=== PATIENT | female | born 1970 | race Caucasian/White ===

== ENCOUNTER 2017-04-13 16:25 | Inpatient (IN) ==
--- NOTE | 2017-04-13 17:56 | Emergency Department Note ---
Disposition Clinical Impression: Osteomyelitis of toe of right foot Disposition: Admitted As Inpatient Condition: Good Referrals: NO,PCP [Primary Care Provider] - Forms: ED Satisfaction Letter Time of Disposition: 21:20 Extremity Problem HPI - General Chief complaint: ED Extremity Problem,Nontraumatic Stated complaint: Necrotic toe Time Seen by Provider: 04/13/17 17:14 Source: patient Mode of arrival: ambulatory Limitations: no limitations Nursing Notes Reviewed: Yes Vital Signs Reviewed: Yes - History of Present Illness HPI Narrative: 46-year-old female insulin-dependent diabetes mellitus uncontrolled presents with right little toe pain. Reports yesterday noticing some bleeding from the right little toe. His morning she took a look and it appears black and blue. She denies any known injury to the toe. She denies any significant pain at this time. Describes the pain as a dull cramping feeling. Her right leg is more swollen than the left. She denies any recent illness, cough, chest pain or shortness of breath. Denies any anticoagulants use. Denies any history of blood clots. Denies active cancer. Denies any surgeries on the right leg. Pain Scale: 7 - Related Data Home Medications Medication Instructions Recorded Confirmed BuPROPion SR (12 HR) [Wellbutrin 150 mg PO BID 10/03/15 04/13/17 SR] Metformin [Glucophage] 1,000 mg PO BID 10/03/15 04/13/17 Ergocalciferol (VITAMIN D2) 50,000 unit PO SA 04/13/17 04/13/17 [Vitamin D2] Insulin Degludec [Tresiba 22 unit SQ DAILY 04/13/17 04/13/17 Flextouch U-100] Liraglutide [Victoza 2-Sameer] 1.8 mg SQ DAILY 04/13/17 04/13/17 Spironolactone [Aldactone] 25 mg PO DAILY 04/13/17 04/13/17 hydrOXYzine HCl [Hydroxyzine HCl] 25 - 50 mg PO TID PRN 04/13/17 04/13/17 Allergies Allergy/AdvReac Type Severity Reaction Status Date / Time No Known Allergies Allergy Unverified 06/05/15 08:07 Past Medical History - Past Medical History Medical history: Reports: diabetes, other Surgical history: Reports: other Psychiatric history: Reports: no psych history - Social History Smoking Status: Current every day smoker Alcohol use: Reports: none Drug use: Reports: none Physical Exam - General Limitations: no limitations General appearance: alert, in no apparent distress, obese - Head Head exam: atraumatic, normocephalic, normal inspection - Eye Eye exam: Present: normal appearance, PERRL, EOMI - ENT ENT exam: normal exam, normal oropharynx, mucous membranes moist - Neck Neck exam: Present: normal inspection, full ROM, trachea midline - Chest Chest inspection: Present: normal inspection, symmetric chest wall rise - Respiratory Respiratory exam: Present: normal lung sounds bilaterally. Absent: respiratory distress, wheezes - Cardiovascular Cardiovascular exam: Present: regular rate, normal rhythm, normal heart sounds - Expanded Cardiovascular Exam Peripheral pulses: 1+: posterior tibialis (R), dorsalis pedis (R), 2+: posterior tibialis (L), dorsalis pedis (L) - Abdominal Exam Abdominal exam: Present: soft, Non-Tender, normal bowel sounds. Absent: tenderness, distention, guarding, rebound, rigidity - Extremities Exam Extremities exam: Present: normal capillary refill, pedal edema (Asymmetrical swelling right greater than the left, signs of chronic venous stasis bilaterally ), calf tenderness - Expanded Lower Extremity Exam Foot/toe exam: Present: tenderness, swelling, abrasion, laceration, ecchymosis ( Right little toe), other (Ulceration to the plantar aspect of the lateral right foot) 1 - Cyanosis and bruising with some bleeding, nail is intact 1 - Skin ulceration to the right plantar aspect of the little toe, tracts to the medially into the midfoot, no pus drainage Neurovascular/Tendon exam: Present: pulse deficit, sensory deficit (Diminished sensation to bilateral lower extremities consistent with neuropathy) - Neurological Exam Neurological exam: Present: alert, oriented X3 - Psychiatric Psychiatric exam: Present: normal affect, normal mood - Skin Skin exam: Present: cyanosis, other (Necrosis) - Expanded Skin Exam Type of lesion: Present: abrasion. Absent: foreign body Distribution: RLE Course Course Narrative: 46-year-old female history of uncontrolled insulin-dependent diabetes presents with possible right toe infection. Right little toe is cyanotic impossibly necrotic. There is some losing of blood around the area. There is also an ulcer on the plantar aspect of the foot. There is significant swelling to the right leg concerning for possible blood clot. Pulses are equal bilaterally. Patient denies any history of blood clots. She has a Wells score +2. Will get a venous Doppler of the right lower extremity. X-ray and some basic labs to evaluate toe for possible infection. Patient is in agreement with this plan. Disposition is pending. - Reevaluation(s) Reevaluation #1: Leukocytosis 20. ESR's elevated over 130. Elevated CRP. Concern for possible osteomyelitis. Patient meets SIRS criteria will order lactate, blood cultures and initiate antibiotics. One to cover for MRSA and started on Vanc and Gentamicin. Pharmacy called concern for possible kidney injury and wishes to switch to Zosyn. Will begin on Vanc and Zosyn. Awaiting venous Doppler of the right lower extremity for possible clot. Anticipate admission. Time: 18:48 Reevaluation #2: X-ray reports soft tissue gas in the 5th digit concern for possible gangrene. Was informed by cardio check for right leg venous Doppler negative for DVT and SVT. Blood cultures have been drawn. Will begin antibiotics for empiric coverage. Awaiting CT scan results. Foot X-Ray 04/13/17 17:39 IMPRESSION: 1. 5th digit soft tissue gas. No convincing radiographic evidence of osteomyelitis. If clinically indicated further evaluation could be obtained with MRI. 2. 7 mm linear metallic density foreign body in the soft tissues lateral to the 2nd distal phalanx. D/ / Marquise Kimball MD / Marquise Kimball MD Interpreting Provider: Marquise Kimball MD Time: 19:25 Reevaluation #3: CT of the foot shows gas within the 5th phalanx compatible osteomyelitis. Patient has been initiated on empiric antibiotics. Lactate is normal. Foot CT 04/13/17 18:25 IMPRESSION: 1. Gas within the 5th distal phalanx compatible with osteomyelitis. No definite osseous erosion or CT evidence of osteomyelitis in the remaining visualized osseous structures. 2. Small skin defect plantar and lateral to the 5th metatarsal head with small underlying fluid-filled sinus tract coursing towards the plantar surface of the 5th metatarsal head. No well-defined drainable fluid collection. 3. Extensive soft tissue gas in the 5th digit compatible with necrosis. Small foci of gas possibly within the 5th metatarsophalangeal joint space. Septic arthritis not excluded. D/ / Marquise Kimball MD / Marquise Kimball MD Interpreting Provider: Marquise Kimball MD Time: 20:19 Additional Reevaluation(s): Cultures were obtained of the right foot ulcer. There is a track that goes medially towards the midfoot. Was not able to express any pus drainage. Patient will be admitted for osteomyelitis. - Consultations Consultation #1: Spoke with Dr. Funk, orthopedic surgeon, for consultation on 5th toe osteo. He recommends consulting podiatry as he does not deal with this as much. If unable to he will gladly be involved in the patient's care. Time: 20:52 Consultation #2: Spoke with Dr. Beebe, wine steward/stewardess, recommends keeping on Vanc and Zosyn. Recommends wound culture. Aerobe is red top with gram stain. Blue top is anaerobe, get first. We will see 1st thing tomorrow morning. No other orders at this time. Time: 20:56 Consultation #3: Spoke with on-call hospitalist manju Cat to admit for osteomyelitis of the right 5th toe. No further orders at this time Time: 21:59 Vital Signs Temperature 98.6 F 04/13/17 16:49 Pulse Rate 104 04/13/17 16:49 Respiratory Rate 18 04/13/17 16:49 Blood Pressure 128/85 04/13/17 16:49 O2 Sat by Pulse Oximetry 94 04/13/17 16:49 Temperature 98.6 F 04/13/17 16:49 Pulse Rate 104 04/13/17 16:49 Respiratory Rate 18 04/13/17 16:49 Blood Pressure 128/85 04/13/17 16:49 O2 Sat by Pulse Oximetry 94 04/13/17 16:49 Oxygen Delivery Oxygen Delivery Room Air Extremity Problem, Nontraumati - MDM Narrative Medical decision making narrative: I examined this patient and my medical decision-making was reviewed with the BUSINESS LINE MANAGER/PA/Advanced Practice Nurse/Resident Physician. I agree with the documented findings, disposition and treatment plan as described except to the extent set forth below. Patient was seen and evaluated today by Dr. Cook and myself, I agree with this evaluation and management plan, supervised care the patient's today. Patient has some dark color and pain to her right little toe that has been going on for 24 hours she denies any injury. She is diabetic. No history of infection. She does have pulses to the area some swelling branch of a DVT study and x-ray lab work she may need arterial studies at some time if she does not good pulses. She has no shortness of breath or fevers. 1830 hrs.: Post the patient's elevation in her white count, and sedimentation rate, and the appearance of her toe or in a started on antibiotic coverage with vancomycin and gentamicin. She is in agreement with this plan. We are waiting on DVT study and CT of her foot to rule out osteo-or abscess. Ketene was 43 hours: Pharmacy called asking to change the gentamicin to Zosyn which we did their recommendation was doing this because this might be "harsh on her kidneys" will wait for her renal function and change her to the Zosyn and keep her on the vancomycin. Foot X-Ray 04/13/17 17:39 IMPRESSION: 1. 5th digit soft tissue gas. No convincing radiographic evidence of osteomyelitis. If clinically indicated further evaluation could be obtained with MRI. 2. 7 mm linear metallic density foreign body in the soft tissues lateral to the 2nd distal phalanx. D/ / Marquise Kimball MD / Marquise Kimball MD Interpreting Provider: Marquise Kimball MD Foot CT 04/13/17 18:25 IMPRESSION: 1. Gas within the 5th distal phalanx compatible with osteomyelitis. No definite osseous erosion or CT evidence of osteomyelitis in the remaining visualized osseous structures. 2. Small skin defect plantar and lateral to the 5th metatarsal head with small underlying fluid-filled sinus tract coursing towards the plantar surface of the 5th metatarsal head. No well-defined drainable fluid collection. 3. Extensive soft tissue gas in the 5th digit compatible with necrosis. Small foci of gas possibly within the 5th metatarsophalangeal joint space. Septic arthritis not excluded. D/ / Marquise Kimball MD / Marquise Kimball MD Interpreting Provider: Marquise Kimball MD 2009 hrs.: Will speak with orthopedics regarding the patient's foot. ct shows possible early osteomyelitis versus a septic joint. I do not see an area that I could drain at this point. And then we will speak to hospitalist and orthopedics is on board with this. 2024 hours: Paging orthopedists at this time. 2129 hrs.: Orthopedics asked that we talk with podiatry for this. Talked with Dr. Beebe, he is agreed to bring him in to the hospital with hospital service and consult. Patient's in agreement with this plan. Podiatry asked that we do cultures on the wound of the foot which we did and sent that off. She has been on antibiotics going. And is awaiting for an admission bed. Patient's critical care time excluding separately billable procedures is 35 minutes. - Medical Records Medical records reviewed: Yes I reviewed the patient's medical records. - Lab Data Lab results reviewed: Yes I reviewed the patient's lab results. Result diagrams: 04/13/17 18:00 04/13/17 18:00 Lab Results 04/13/17 04/13/17 04/13/17 Range/Units 18:00 18:00 18:00 WBC 20.2 H (4.3-11.1) K/mcL RBC 5.61 H (3.82-4.97) M/mcL Hgb 15.5 H (11.5-15.4) g/dL Hct 44.3 (35.3-44.9) % MCV 79.0 L (83.0-100.0) fL MCH 27.6 L (28.0-33.3) pg MCHC 35.0 (31.6-35.5) g/dL RDW 12.2 (11.5-14.5) % Plt Count 297 (140-400) K/mcL MPV 10.0 (9.4-12.4) fL Immature Gran % 0.5 (0-4) % Seg Neutrophils % 79.1 % Lymphocytes % 11.1 % Monocytes % 9.0 % Eosinophils % 0.1 % Basophils % 0.2 % Neutrophils # 15.9 H (1.6-8.9) K/mcL Lymphocytes # 2.2 (0.6-4.6) K/mcL Monocytes # 1.8 H (0.0-1.3) K/mcL Eosinophils # 0.0 (0.0-0.6) K/mcL Basophils # 0.1 (0.0-0.2) K/mcL ESR >= 130 H (0-15) mm/hr Sodium 129 L (136-145) mEq/L Potassium 3.5 (3.5-4.5) mEq/L Chloride 90 L (98-109) mEq/L Carbon Dioxide 28 (19-29) mEq/L BUN 12 (7-20) mg/dL Creatinine 1.00 (0.57-1.11) mg/dL Est GFR ( Amer) > 60 (> 60) Est GFR (Non-Af Amer) > 60 (> 60) BUN/Creatinine Ratio 12 (6-26) Glucose 272 H (70-99) mg/dL Calculated Osmolality 277 L (280-300) Lactic Acid (0.5-2.2) mmol/L Calcium 9.4 (8.6-10.8) mg/dL C-Reactive Protein (Less than 5) mg/L 04/13/17 04/13/17 Range/Units 18:00 18:37 WBC (4.3-11.1) K/mcL RBC (3.82-4.97) M/mcL Hgb (11.5-15.4) g/dL Hct (35.3-44.9) % MCV (83.0-100.0) fL MCH (28.0-33.3) pg MCHC (31.6-35.5) g/dL RDW (11.5-14.5) % Plt Count (140-400) K/mcL MPV (9.4-12.4) fL Immature Gran % (0-4) % Seg Neutrophils % % Lymphocytes % % Monocytes % % Eosinophils % % Basophils % % Neutrophils # (1.6-8.9) K/mcL Lymphocytes # (0.6-4.6) K/mcL Monocytes # (0.0-1.3) K/mcL Eosinophils # (0.0-0.6) K/mcL Basophils # (0.0-0.2) K/mcL ESR (0-15) mm/hr Sodium (136-145) mEq/L Potassium (3.5-4.5) mEq/L Chloride (98-109) mEq/L Carbon Dioxide (19-29) mEq/L BUN (7-20) mg/dL Creatinine (0.57-1.11) mg/dL Est GFR ( Amer) (> 60) Est GFR (Non-Af Amer) (> 60) BUN/Creatinine Ratio (6-26) Glucose (70-99) mg/dL Calculated Osmolality (280-300) Lactic Acid 1.3 (0.5-2.2) mmol/L Calcium (8.6-10.8) mg/dL C-Reactive Protein 348 H (Less than 5) mg/L - Radiology Data Radiology results reviewed: Yes I reviewed the patient's radiology results. Foot X-Ray 04/13/17 17:39 IMPRESSION: 1. 5th digit soft tissue gas. No convincing radiographic evidence of osteomyelitis. If clinically indicated further evaluation could be obtained with MRI. 2. 7 mm linear metallic density foreign body in the soft tissues lateral to the 2nd distal phalanx. D/ / Marquise Kimball MD / Marquise Kimball MD Interpreting Provider: Marquise Kimball MD Foot CT 04/13/17 18:25 IMPRESSION: 1. Gas within the 5th distal phalanx compatible with osteomyelitis. No definite osseous erosion or CT evidence of osteomyelitis in the remaining visualized osseous structures. 2. Small skin defect plantar and lateral to the 5th metatarsal head with small underlying fluid-filled sinus tract coursing towards the plantar surface of the 5th metatarsal head. No well-defined drainable fluid collection. 3. Extensive soft tissue gas in the 5th digit compatible with necrosis. Small foci of gas possibly within the 5th metatarsophalangeal joint space. Septic arthritis not excluded. D/ / Marquise Kimball MD / Marquise Kimball MD Interpreting Provider: Marquise Kmiball MD
[2017-04-13 18:11] LABS: Basophils # 0.1 K/mcL (0.0-0.2); Basophils % 0.2 %; Eosinophils % 0.1 %; Hematocrit 44.3 % (35.3-44.9); Hemoglobin 15.5 g/dL (11.5-15.4); Immature Granulocytes % 0.5 % (0-4); Lymphocytes # 2.2 K/mcL (0.6-4.6); Lymphocytes % 11.1 %; Mean Corpuscular Hemoglobin 27.6 pg (28.0-33.3); Monocytes # 1.8 K/mcL (0.0-1.3); Neutrophils # 15.9 K/mcL (1.6-8.9); Platelet Count 297 K/mcL (140-400); Red Blood Count 5.61 M/mcL (3.82-4.97); Red Cell Distribution Width 12.2 % (11.5-14.5); Segmented Neutrophils % 79.1 %
[2017-04-13 18:25] LABS: BUN/Creatinine Ratio 12 (6-26); Blood Urea Nitrogen 12 mg/dL (7-20); Calcium 9.4 mg/dL (8.6-10.8); Carbon Dioxide 28 mEq/L (19-29); Chloride 90 mEq/L (98-109); Glucose 272 mg/dL (70-99); Osmolality,Calculated 277 (280-300); Potassium 3.5 mEq/L (3.5-4.5); Sodium 129 mEq/L (136-145); eGFR For African Americans > 60 (> 60); eGFR For Non-African Americans > 60 (> 60)
[2017-04-13] MEDS ORDERED: 0.9 % Sodium Chloride 1,000 ML IVC ONE (18:25)
[2017-04-13] MEDS ORDERED: Gentamicin 430 MG in 0.9 % Sodium Chloride 100 ML IVPB ONE (18:27)
[2017-04-13] MEDS ORDERED: Vancomycin 2,000 MG in D5% in Water 250 ML IVPB ONE (18:27)
[2017-04-13] MEDS ORDERED: Piperacillin/Tazobactam 3.375 GM in D5% in Water (Mini-Bag+) 100 ML IVPB ONE (18:42)
[2017-04-13] MEDS ORDERED: Vancomycin 2,000 MG in D5% in Water 500 ML IVPB ONE (19:00)
[2017-04-13] MEDS ORDERED: 0.9 % Sodium Chloride 1,000 ML IVC SCH ×2 (21:00→23:59)
[2017-04-13] MEDS ORDERED: *HR* OxyCODONE Immed Rel 5 MG TABLET PO PRN (22:23)
[2017-04-13] MEDS ORDERED: Ondansetron 4 MG/2 ML VIAL IVP PRN (22:23)
[2017-04-13] MEDS ORDERED: Naloxone 0.4 MG/ML INJ IVP PRN (22:23)
[2017-04-13] MEDS ORDERED: Acetaminophen 325 MG TABLET PO PRN (22:23)
[2017-04-13] MEDS ORDERED: D5% in Water 1,000 ML IVC PRN (23:19)
[2017-04-13] MEDS ORDERED: Dextrose Gel 15 GM PO PRN ×2 (23:19)
[2017-04-13] MEDS ORDERED: *HR* Dextrose 50 % in Water (Syg) 50 ML SYRINGE IVP PRN (23:19)
[2017-04-13] MEDS ORDERED: Insulin DETEMIR 100 UNIT/ML X5UNITS SQ SCH (23:45)
[2017-04-13] MEDS ORDERED: Vancomycin 2,000 MG in D5% in Water 250 ML IVPB SCH (23:45)
--- NOTE | 2017-04-13 23:54 | Internal Med History&Physical ---
Date of Encounter: 04/13/17 Time of Encounter: 23:30 Assessment and Plan (1) Osteomyelitis Current visit: Yes Status: Acute Patient presents with sudden onset swelling, redness and discoloration of her right fifth digit. On exam, discoloration is present underdistended to palpation. A draining sinus tract is seen. CT scan evidence of gas within the first distal phalanx compatible with osteomyelitis and extensive necrosis present. Patient will be admitted to inpatient status. High risk due to risk of septic shock and possible need for surgical intervention. Expected to be in the hospital for at least 2 midnights. Expected discharge disposition is to home with home health. Patient has received vancomycin, Zosyn and gentamicin in the emergency room. Continue vancomycin and Zosyn for coverage of MRSA and anaerobic and gram- negative bacteria. Podiatry consult. Intravenous fluids. Cultures have been obtained in the emergency department. Patient may require intraoperative cultures if the patient is taken for debridement by podiatry. Further antibiotic course to be determined by culture sensitivity data. Qualifiers: Osteomyelitis type: other acute Osteomyelitis location: foot Laterality: right Qualified Code(s): M86.171 - Other acute osteomyelitis, right ankle and foot (2) Septic arthritis Current visit: Yes Status: Suspected Suspected septic arthritis of the fifth metatarsophalangeal joint space on the right side. Management as above with intravenous antibiotics. Patient will require about 6 weeks of intravenous antibiotics therapy. If her blood cultures are negative, we will request for PICC line placement for long-term antibiotics therapy. Qualifiers: Septic arthritis location: foot Septic arthritis organism: due to unspecified organism Laterality: right Qualified Code(s): M00.9 - Pyogenic arthritis, unspecified (3) Diabetes mellitus Current visit: Yes Status: Chronic Patient presents with a diabetic foot ulcer. As earlier mentioned, patient will be on broad-spectrum antibody therapy. Resume home dose of insulin. Sliding scale insulin. Continue metformin. We will obtain hemoglobin A1c levels. 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 Congratulated on the same (5) Tobacco abuse Current visit: Yes Status: Chronic Counseled regarding cessation. Patient interested in quitting. Negative patch offered. Patient refused. Internal Medicine - H&P: HPI Chief complaint: Right foot swelling and redness Admitted From: Emergency Dept Plans for Post Hospital Care: Home History of present illness: Ms. Sellers is a 46 year old female who was sent to the emergency department by her primary care physician due to right foot redness and swelling. Patient states that over the past 3 months, she has been walking regularly exercising and has lost about 34 pounds which is intentional weight loss. During these exercise sessions, over the past 2-3 weeks, she has been feeling some unusual sensation on the bottom of her right foot. She states that yesterday evening, she noticed discoloration of her right fifth toe of about purple to black discoloration. This is also associated with swelling of the right foot and redness. She also noticed an ulcer on the bottom of her right foot on the outer aspect. Hence, she presented to her primary care physician today to get evaluated for the same. Her primary care physician referred her to the emergency department for admission for cellulitis and for further workup. She states that she has been having low-grade fevers. She checked her temperature and it has been 100.2 degrees Fahrenheit. She also reports chills. She denies any chest pain, palpitations, shortness of breath, cough or wheezing. She denies any nausea, vomiting, abdominal pain, diarrhea acculturation. She denies any urinary symptoms. She reports chronic swelling of both her legs. Past Med Surg Social Fam HX - Past Medical History Attestation: Yes The following information was validated with the patient. Source: patient Medical history: diabetes, other Psychiatric history: anxiety, depression - Past Surgical History Surgical History: orthopedic, other (Left knee surgery 2) - Social History Smoking Status: Current every day smoker Packs per day: 0.5 Smokeless Tobacco Status: No Alcohol use: none Drug use: none Current living situation: Home, With Family Activity Level: Independent ambulation Recent Out of Country Travel Within the Last 8 Weeks: No Exposure or Possible Exposure to Illness During Travel: No - Additional Family History Additional family history: Reviewed; not pertinent Internal Medicine - H&P: Meds BuPROPion SR (12 HR) [Wellbutrin SR] 150 mg PO BID 10/03/15 [History] Metformin [Glucophage] 1,000 mg PO BID 10/03/15 [History] Ergocalciferol (VITAMIN D2) [Vitamin D2] 50,000 unit PO SA 04/13/17 [History] Insulin Degludec [Tresiba Flextouch U-100] 22 unit SQ DAILY 04/13/17 [History] Liraglutide [Victoza 2-Sameer] 1.8 mg SQ DAILY 04/13/17 [History] Spironolactone [Aldactone] 25 mg PO DAILY 04/13/17 [History] hydrOXYzine HCl [Hydroxyzine HCl] 25 - 50 mg PO TID PRN 04/13/17 [History] Allergies No Known Allergies Allergy (Unverified 06/05/15 08:07) All Systems PM: A 10-system review of systems was performed and is negative for pertinent findings except as documented above in the HPI. Review of systems: 10 systems have been reviewed and are negative except as mentioned in the history of present illness - Constitutional Vitals: Temp Pulse Resp BP Pulse Ox 98 F 86 16 120/74 97 04/13/17 23:08 04/13/17 23:08 04/13/17 23:08 04/13/17 23:08 04/13/17 23:08 Exam: Gen.: Lying in bed. No acute distress. Eyes: Pupils equal, round and reactive to light. Extraocular muscles intact. ENT: Moist mucous membranes. No oropharyngeal erythema or discharge. Chest: Clear to auscultation bilaterally. No adventitious sounds present. CVS: First and second heart sounds present. No murmurs, rubs or gallops. Abdomen: Soft, nontender, obese. Bowel sounds present. No hepatosplenomegaly. Skin: No decubitus ulcers appreciated. Erythema over the right lower extremity extending from the inferior portion of her knee down to her toes. CREATIVE INTERN: No focal neuro deficits present. Purple to black colored discoloration of her right fifth toe Psychiatric: Alert, awake and oriented to time, place and person. Lymphatic system: No lymphadenopathy appreciated Musculoskeletal: Tenderness to palpation over the right lower extremity. Erythema and edema over the right lower extremity from below the knee up to the toes. Clear drainage from a 1 cm ulcer on the inferior aspect of her lateral foot. Tenderness to palpation. Some serosanguineous discharge also present. Internal Med - H&P Results - Labs CBC & Chem 7: 04/13/17 18:00 04/13/17 18:00 - Impressions X-ray of the right foot reveals fifth digit soft tissue gas. 7 mm linear metallic density in the soft tissues lateral to the second distal phalanx is present. CT scan of the right foot demonstrates gas within the fifth distal phalanx compatible with osteomyelitis. No definite CT evidence of osteo-and it is in the remaining visualized nausea structures. Small skin defect plantar and lateral to the fifth metatarsal head with small underlying fluid-filled sinus tract coursing towards the plantar surface of the fifth metatarsal head. Extensive soft tissue gas in the fifth digit compatible with necrosis is seen. Septic arthritis is not excluded in the fifth metatarsophalangeal joint space.
[2017-04-14] MEDS: Piperacillin/Tazobactam 3.375 GM in D5% in Water (Mini-Bag+) 100 ML IVPB SCH ×4 (00:15→23:37)
[2017-04-14 02:39] LABS: Albumin 2.6 g/dL (3.5-5.0); Albumin/Globulin Ratio 0.4 (1.1-2.2); Bilirubin,Direct 0.5 mg/dL (0.0-0.5); Bilirubin,Indirect 0.3 mg/dL (0.0-1.2); Bilirubin,Total 0.8 mg/dL (0.2-1.2); Globulin 5.8 g/dL (2.4-3.5); Total Protein 8.4 g/dL (6.0-8.3)
[2017-04-14] MEDS ORDERED: Mag Hydrox/Al Hydrox/Simeth 30 ML UDC PO PRN ×2 (03:53→15:43)
[2017-04-14 05:20] LABS: Hematocrit 40.7 % (35.3-44.9); Immature Granulocytes % 0.3 % (0-4); Lymphocytes % 22.6 %; Mean Corpuscular HGB Conc 34.4 g/dL (31.6-35.5); Mean Corpuscular Hemoglobin 27.5 pg (28.0-33.3); Mean Corpuscular Volume 79.8 fL (83.0-100.0); Mean Platelet Volume 9.7 fL (9.4-12.4); Platelet Count 257 K/mcL (140-400); Red Cell Distribution Width 12.2 % (11.5-14.5); Segmented Neutrophils % 65.9 %
[2017-04-14 05:21] LABS: Basophils % 0.3 %; Eosinophils # 0.1 K/mcL (0.0-0.6); Eosinophils % 0.6 %; Lymphocytes # 2.9 K/mcL (0.6-4.6); Monocytes # 1.3 K/mcL (0.0-1.3); Monocytes % 10.3 %; Neutrophils # 8.5 K/mcL (1.6-8.9)
[2017-04-14 05:27] LABS: Hemoglobin A1C 9.3 %
[2017-04-14 05:39] LABS: Alanine Aminotransferase 7 Units/L (0-55); Albumin 2.2 g/dL (3.5-5.0); Albumin/Globulin Ratio 0.4 (1.1-2.2); Alkaline Phosphatase 89 Units/L (38-126); Aspartate Amino Transferase 7 Units/L (5-34); BUN/Creatinine Ratio 10 (6-26); Bilirubin,Total 0.8 mg/dL (0.2-1.2); Blood Urea Nitrogen 8 mg/dL (7-20); Calcium 8.6 mg/dL (8.6-10.8); Carbon Dioxide 28 mEq/L (19-29); Chloride 95 mEq/L (98-109); Glucose 222 mg/dL (70-99); Osmolality,Calculated 279 (280-300); Sodium 132 mEq/L (136-145); Total Protein 7.2 g/dL (6.0-8.3); eGFR For African Americans > 60 (> 60); eGFR For Non-African Americans > 60 (> 60)
--- NOTE | 2017-04-14 07:09 | Venous Imaging Report ---
LE Venous Duplex Patient Name:Linda Sellers Order Number:[id number] Procedure Date:04/13/2017 Date:1970Age:46 yrs Gender:Female Location:[facility] ED Room #: ED12 Underwriting Sales Representative:Shelly Bowling Referring MD:Shaq Cook DO park interpreter:Agustina Casey, DRAWER IN JACQUARD LOOM Reading MD:Chava Soto MD Primary Indications:Right foot pain, swelling Secondary Indications: Impressions: Normal right lower extremity deep and superficial venous exam. Normal contralateral common femoral vein. Recommendations: Test completed on 04/13/2017 at 7:12:00 pm. Critical findings reported to Dr. Cook-ED- by phone at 7:15:00 pm on 04/13/2017 by Shelly Bowling. Findings Prior Study: No prior study available for comparison. Lower Extremity Venous Duplex Side Vein Compress Spontaneous Flow Augment Diameter (cm) Depth (cm) Right Distal Iliac Normal Yes Phasic Yes Right Common Femoral Normal Yes Phasic Yes Right Superficial Femoral Normal Yes Phasic Yes Right Popliteal Normal Yes Phasic Yes Right Posterior Tibial Normal Yes Phasic Yes Right Peroneal Normal Yes Phasic Yes Right Saphenofemoral Junction Normal Yes Phasic Yes Right Great Saphenous Normal Yes Phasic Yes Right Lesser Saphenous Normal Yes Phasic Yes Left Common Femoral Normal Yes Phasic Yes Updated by Chava Soto MD on 04/14/2017 7:04:01 AM electronically signed on 04/14/2017 7:04:20 AM with status of Final
[2017-04-14] MEDS: Insulin LISPRO 300 UNITS/3 ML VIAL SQ SCH ×4 (08:35→21:04)
[2017-04-14] MEDS ORDERED: BuPROPion SR (12 HR) 150 MG TABLET PO SCH (09:00)
[2017-04-14] MEDS ORDERED: *HR* Metformin 500 MG TABLET PO SCH (09:00)
[2017-04-14] MEDS ORDERED: Vancomycin 2,000 MG in D5% in Water 500 ML IVPB SCH (09:00)
[2017-04-14] MEDS ORDERED: INSULIN DEGLUDEC SQ SCH (09:00)
--- NOTE | 2017-04-14 13:05 | Podiatry Consult Note ---
Date of Encounter: 04/14/17 Time of Encounter: 12:00 Assessment and Plan (1) Osteomyelitis of toe of right foot Current visit: Yes Status: Acute Assessed at bedside, patient awake alert and oriented and agreeable with plan. Patient has been NPO since midnight receiving vancomycin and zosyn IV antibiotic coverage. Admit WBC 21 Plan: Amputation of 5th digit, I&D and cultures of right foot per today 04/14/17 Surgical consent on chart, patient denies any questions Patient has been unable to void for required screen for surgical clearance. Ordered serum blood screen a this time. Will obtain cultures in surgery, continue current antibiotic coverage until culture results have returned (2) Diabetes mellitus Current visit: Yes Status: Chronic Qualifiers: Diabetes mellitus type: type 2 Diabetes mellitus complication status: with skin complications Diabetes mellitus complication detail: with foot ulcer Diabetes mellitus intermediate teacher insulin use: with halfway use Qualified Code(s) : E11.621 - Type 2 diabetes mellitus with foot ulcer; L97.509 - Non-pressure chronic ulcer of other part of unspecified foot with unspecified severity; Z79.4 - parts counterman (current) use of insulin (3) Septic arthritis Current visit: Yes Status: Suspected Qualifiers: Septic arthritis location: foot Septic arthritis organism: due to unspecified organism Laterality: right Qualified Code(s): M00.9 - Pyogenic arthritis, unspecified (4) Osteomyelitis Current visit: Yes Status: Acute Qualifiers: Osteomyelitis type: other acute Osteomyelitis location: foot Laterality: right Qualified Code(s): M86.171 - Other acute osteomyelitis, right ankle and foot History of Present Illness HPI: Ms. Sellers is a 46 year old female who arrived to [facility] last night with complaints of discoloration to right foot toe #5. Patient states that she noticed 2-3 days ago it was a little dark. States that yesterday she noticed it was really dark, she was having some pain to the toe and states she had a "little fever" Patient denies any known trauma to toe but states she walks barefoot everywhere or wears thin open toed slippers. Patient has hx of diabetes mellitus which she states has been poorly controlled. Patient was evaluated in ED and admitted with osteomyelitis of the 5th digit with gas noted to CT and presence of necrosis of toe. was contacted over night, patient was made NPO and plan for surgical intervention today. Patient resting comfortably on arrival to room. Patient states she has some pain to the toe at this time. Patient denies any fevers, chills, n/v or flu like symptoms at this time. Patient denies any calf pain. Patient awaiting surgery, denies any questions. Past Med Surg Social Fam HX - Past Medical History Medical history: diabetes, other Psychiatric history: anxiety, depression - Past Surgical History Surgical History: orthopedic, other (Left knee surgery 2) - Social History Smoking Status: Current every day smoker Packs per day: 0.5 Smokeless Tobacco Status: No Alcohol use: none Drug use: none Medications and Allergies BuPROPion SR (12 HR) [Wellbutrin SR] 150 mg PO BID 10/03/15 [History] Metformin [Glucophage] 1,000 mg PO BID 10/03/15 [History] Ergocalciferol (VITAMIN D2) [Vitamin D2] 50,000 unit PO SA 04/13/17 [History] Insulin Degludec [Tresiba Flextouch U-100] 22 unit SQ DAILY 04/13/17 [History] Liraglutide [Victoza 2-Sameer] 1.8 mg SQ DAILY 04/13/17 [History] Spironolactone [Aldactone] 25 mg PO DAILY 04/13/17 [History] hydrOXYzine HCl [Hydroxyzine HCl] 25 - 50 mg PO TID PRN 04/13/17 [History] Allergies No Known Allergies Allergy (Unverified 06/05/15 08:07) All Systems Reviewed: A 10-system review of systems was performed and is negative for pertinent findings except as documented above in the HPI. Physical Exam - Constitutional Vitals: Temp Pulse Resp BP Pulse Ox 97.9 F 85 16 129/84 96 04/14/17 11:16 04/14/17 11:16 04/14/17 11:16 04/14/17 11:16 04/14/17 11:16 Exam: Awake alert oriented x3 Diminished sensation to light touch to BLE Pedal pulses palpable DP/PT to RLE. Cap refill <3 seconds to all digits excluding toe #5 right foot Muscle strength 5/5 and equal bilaterally. 5th digit right foot wet necrosis noted extending to MTP joint space. Foul odor. Mild erythema and edema noted surrounding 5th MTP joint. No streaking noted a this time. There is drainage to medial aspect of 5th toe, serosang. There is a small linear ulceration 1cm in length noted to the lateral aspect of 5th metatarsal head. Pain with palpation. Foot X-Ray 04/13/17 17:39 IMPRESSION: 1. 5th digit soft tissue gas. No convincing radiographic evidence of osteomyelitis. If clinically indicated further evaluation could be obtained with MRI. 2. 7 mm linear metallic density foreign body in the soft tissues lateral to the 2nd distal phalanx. D/ / Marquise Kimball MD / Marquise Kimball MD Interpreting Provider: Marquise Kimball MD Foot CT 04/13/17 18:25 IMPRESSION: 1. Gas within the 5th distal phalanx compatible with osteomyelitis. No definite osseous erosion or CT evidence of osteomyelitis in the remaining visualized osseous structures. 2. Small skin defect plantar and lateral to the 5th metatarsal head with small underlying fluid-filled sinus tract coursing towards the plantar surface of the 5th metatarsal head. No well-defined drainable fluid collection. 3. Extensive soft tissue gas in the 5th digit compatible with necrosis. Small foci of gas possibly within the 5th metatarsophalangeal joint space. Septic arthritis not excluded. D/ / Marquise Kimball MD / Marquise Kimball MD Interpreting Provider: Marquise Kimball MD Results - Labs Result Diagrams: 04/14/17 05:02 04/14/17 05:02 Labs: Abnormal lab results WBC 12.9 K/mcL (4.3-11.1) H 04/14/17 05:02 RBC 5.10 M/mcL (3.82-4.97) H 04/14/17 05:02 MCV 79.8 fL (83.0-100.0) L 04/14/17 05:02 MCH 27.5 pg (28.0-33.3) L 04/14/17 05:02 ESR >= 130 mm/hr (0-15) H 04/13/17 18:00 Sodium 132 mEq/L (136-145) L 04/14/17 05:02 Potassium 3.0 mEq/L (3.5-4.5) L 04/14/17 05:02 Chloride 95 mEq/L (98-109) L 04/14/17 05:02 Glucose 222 mg/dL (70-99) H 04/14/17 05:02 POC Glucose 267 (58-89) H 04/13/17 22:55 Hemoglobin A1c 9.3 % (-5.6) H 04/14/17 05:02 Calculated Osmolality 279 (280-300) L 04/14/17 05:02 C-Reactive Protein 348 mg/L (Less than 5) H 04/13/17 18:00 Albumin 2.2 g/dL (3.5-5.0) L 04/14/17 05:02 Globulin 5.0 g/dL (2.4-3.5) H 04/14/17 05:02 Albumin/Globulin Ratio 0.4 (1.1-2.2) L 04/14/17 05:02 H & H 04/14/17 Range/Units 05:02 Hgb 14.0 D (11.5-15.4) g/dL Hct 40.7 (35.3-44.9) % All other labs normal. Consult Discharge Plan - Plan Referrals: NO,PCP [Primary Care Provider] -
[2017-04-14] MEDS ORDERED: Propofol 500 MG/50 ML INFUS..BTL ONE (13:14)
[2017-04-14] MEDS ORDERED: Bupivacaine/Clonidine Syringe 1 EACH SYRINGE ONE (13:19)
--- NOTE | 2017-04-14 14:12 | Anesthesia Evaluation PreOp ---
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 History: Denies Any Significant HX Other Medical History: Diabetes Type II, Other (obesity BMI=46.9, anxiety/ depression) Anesthesia History: No Prior Anesthetic Complications, Past Anesthesia Test: Negative (04/14/2017) Alcohol Use: none Drug use: none Medications and Allergies BuPROPion SR (12 HR) [Wellbutrin SR] 150 mg PO BID 10/03/15 [History] Metformin [Glucophage] 1,000 mg PO BID 10/03/15 [History] Ergocalciferol (VITAMIN D2) [Vitamin D2] 50,000 unit PO SA 04/13/17 [History] Insulin Degludec [Tresiba Flextouch U-100] 22 unit SQ DAILY 04/13/17 [History] Liraglutide [Victoza 2-Sameer] 1.8 mg SQ DAILY 04/13/17 [History] Spironolactone [Aldactone] 25 mg PO DAILY 04/13/17 [History] hydrOXYzine HCl [Hydroxyzine HCl] 25 - 50 mg PO TID PRN 04/13/17 [History] Allergies No Known Allergies Allergy (Unverified 06/05/15 08:07) - Meds/Allergy Pre-op Review Medications Reviewed: Yes Allergies Reviewed: Yes Beta Blockers on Current Med List: No Anesthesia Results - Labs 04/14/17 05:02 04/14/17 05:02 - Imaging EKG: report reviewed (06/05/2015 SR, low QRS voltage in precordial leads, moderate IV conduction delay) Anesthesia Exam Vital Signs/O2 Sat/Glucose, Most Recent Temp Pulse Resp BP Pulse Ox 97.9 F 85 16 129/84 96 04/14/17 11:16 04/14/17 11:16 04/14/17 11:16 04/14/17 11:16 04/14/17 11:16 Blood Glucose* 255 Height: 5'5''/1.65 m Weight: 282 lbs/127.913 kg NPO (# of Hours): 8 Pain Scale: 0 Pain Scale Used: Numeric (1 - 10) - HEENT Pupil (Motor): EOMI Mallampati: II Teeth: Normal Oral Opening: Greater than 3 - BURNISHER AND BUMPER LOC: Oriented BURNISHER AND BUMPER Motor: Normal RUE, Normal LUE, Normal RLE, Normal LLE, Normal Face BURNISHER AND BUMPER Sensory: Normal: RUE, LUE, LLE, Face, Deficit: RLE - Cardiac Rhythm: Regular Murmur: None - Pulmonary Breath Sounds: bilateral Clear Respiratory Effort: Symmetrical Anesthesia Assess/Plan ASA Score: 3 Modified [place] Scale for Level of Consciousness: Cooperative, oriented, and tranquil Anesthetic Plan: MAC Monitoring Plan: Standard Monitors
[2017-04-14] MEDS ORDERED: *HR* Midazolam HCl 2 MG/2 ML VIAL ONE (14:24)
[2017-04-14] MEDS ORDERED: *HR* FentaNYL (PF) 100 MCG/2 ML VIAL ONE (14:24)
[2017-04-14] MEDS ORDERED: Potassium Chloride Elixir 20 MEQ/15 ML UDC PO ONE ×2 (14:35→15:43)
[2017-04-14] MEDS ORDERED: *HR* Propofol 200 MG/20 ML VIAL IVP ONE (15:05)
--- NOTE | 2017-04-14 15:20 | Internal Med Progress Note ---
Date of Encounter: 04/14/17 Time of Encounter: 15:15 - Assessment and plan (1) Gangrene Current Visit: Yes Status: Acute (2) Osteomyelitis of toe of right foot Current Visit: Yes Status: Acute (3) Diabetes mellitus Current Visit: Yes Status: Chronic Qualifiers: Diabetes mellitus type: type 2 Diabetes mellitus complication status: with skin complications Diabetes mellitus complication detail: with foot ulcer Diabetes mellitus mcc insulin use: with protein scientist use Qualified Code(s) : E11.621 - Type 2 diabetes mellitus with foot ulcer; L97.509 - Non-pressure chronic ulcer of other part of unspecified foot with unspecified severity; Z79.4 - group home (current) use of insulin (4) Septic arthritis Current Visit: Yes Status: Suspected Qualifiers: Septic arthritis location: foot Septic arthritis organism: due to unspecified organism Laterality: right Qualified Code(s): M00.9 - Pyogenic arthritis, unspecified (5) Morbid obesity with BMI of 45.0-49.9, adult Current Visit: No Status: Chronic - Subjective Interval history: Miss Linda Engel 46-year-old female came in with foot pain which is diagnosed with osteomyelitis of right fifth metatarsal bone as well as deep infection of first phalangeal bone showing gas. As she came in her white count was elevated as well as her heart rate was up and she was diagnosed with SIRS. She has been started on vancomycin and Zosyn and podiatry's consulted who has taken her to OR. Her potassium was low which is supplemented. Follow-up CBC CMP and CRP will be checked on daily basis. Hemoglobin is borderline at around 9.3. Podiatry has been able to clean out all tissue and had partial resection of fifth and first toe and wound VAC is on no. Patient is on vanc and Zosyn and admitting diagnosis was septic arthritis. In such case she might need IV antibiotics for 4-6 weeks. We will order a PICC line. - Constitutional Vitals: Temp Pulse Resp BP Pulse Ox 97.9 F 85 16 129/84 96 04/14/17 11:16 04/14/17 11:16 04/14/17 11:16 04/14/17 11:16 04/14/17 11:16 - Head Head exam: Present: atraumatic, normocephalic - Eye Eye exam: Present: PERRL, conjuntiva pink, sclera anicteric Pupils: Present: PERRL - Neck Neck exam general surgery: Present: supple, trachea midline. Absent: lymphadenopathy - Respiratory Respiratory exam: Present: CTAB. Absent: accessory muscle use, rales, rhonchi, wheezes - Cardiovascular Cardiovascular exam: Present: RRR, +S1, +S2. Absent: diastolic murmur, gallop, rubs, systolic murmur - GI/Abdominal GI/Abdominal exam: Present: normal bowel sounds, soft, no peritoneal signs. Absent: distended, tenderness - Extremities Exam Extremities exam: Present: warm, radial pulses palpable and symetrical. Absent : calf tenderness, cyanotic, pedal edema Additional comments: Detailed examination as per podiatry - Neurological Exam Neurological exam: Present: CN II-XII intact, oriented X3, no focal deficits. Absent: pronater drift, facial droop, speech deficit - Skin Skin exam: Present: dry, intact Internal Medicine: Result - Labs CBC & Chem 7: 04/14/17 05:02 04/14/17 05:02 Labs: Short CBC 04/14/17 Range/Units 05:02 WBC 12.9 H (4.3-11.1) K/mcL Hgb 14.0 D (11.5-15.4) g/dL Hct 40.7 (35.3-44.9) % Plt Count 257 (140-400) K/mcL Neutrophils # 8.5 (1.6-8.9) K/mcL BMP 04/14/17 05:02 Sodium 132 L Potassium 3.0 L Chloride 95 L Carbon Dioxide 28 BUN 8 Creatinine 0.81 Glucose 222 H Calcium 8.6 Liver Function 04/14/17 Range/Units 05:02 Total Bilirubin 0.8 (0.2-1.2) mg/dL AST 7 (5-34) Units/L ALT 7 (0-55) Units/L Alkaline Phosphatase 89 (38-126) Units/L Albumin 2.2 L (3.5-5.0) g/dL Consult Discharge Plan - Plan Referrals: NO,PCP [Primary Care Provider] -
--- NOTE | 2017-04-14 15:36 | Orthopedic Operative Note ---
Date of procedure: 04/14/17 Pre-op diagnosis: #1 gas gangrene right foot. #2 gangrene fifth toe Post-op diagnosis: same Procedure: 04/14/17 15:31 #1 incision and drainage of multiple areas right foot. #2 open amputation toe #5 right foot Implants: None Complications: None Anesthesia: MAC, local Local Anesthetics: 0.25% Sensorcaine HCL SubQ (cc) Surgeon: Gil Beebe Estimated blood loss (cc): 10 Tourniquet Time (Minutes): 0 Specimen: Cultures aerobic and anaerobic right foot Condition: stable Disposition: floor Procedure in Detail: 04/14/17 15:32 Details in summary of procedure: Patient was brought to the surgical suite. A sign in procedure performed. Patient was transferred to the surgical table and positioned properly safely securely. Right foot elevated on the foam block. No tourniquet used. Anesthetic timeout taken. Right ankle prepped with alcohol 3 times modified ankle block carried out. Right foot then prepped and draped in usual sterile manner. Surgical timeout taken. Fifth toe was noted to be black bulbous and tense.. Spontaneous phlegmon draining medially. Ulceration plantar aspect #5 MTP. A standard incision was then begun midshaft fifth metatarsal brought distally a racquet incision was placed around the fifth toe immediate purulent drainage is expressed and cultured the incision was then continued plantarly into the sulcus and then onto the ulceration on the plantar aspect which penetrated the fifth MTPJ. Medial and lateral collateral ligaments and the capsular structures were divided cleanly at the level of the MTP. Fortunately the head of the fifth metatarsal was pristine. It was normal color texture density. Normal character. All necrotic tissue was debrided thoroughly with a #15 scalpel blade pickup and Metzenbaum scissor remainder of the wound was thoroughly debrided with ultrasonics Misonix debrider. Satisfied all necrotic tissue was removed it was explored dorsally where small sinus tract was noted entering the intermetatarsal space for about 1 cm there is no purulent drainage but it was debrided regardless. The wound was noted to bleed freely without necessitaiting use of a bovie or ligature. After complete debridement the wound was inspected and irrigated again. Fifth digit which was gangrenous was sent for pathology. After complete inspection of the wound dorsally, plantarly, and medially it was then decided to place a wound VAC. Several sutures were placed with 3-0 Prolene proximally and distally. Wound VAC was then placed in wound. A small piece of Adaptic was placed over the metatarsal head which was exposed. No complications encountered estimated blood loss less than 10 mL. Patient was then sent to holding room in good condition with vital signs stable. 04/16/17 08:19
[2017-04-14] MEDS ORDERED: Dextrose Gel 15 GM PO PRN ×2 (15:43)
[2017-04-14] MEDS ORDERED: D5% in Water 1,000 ML IVC PRN (15:43)
[2017-04-14] MEDS ORDERED: Ondansetron 4 MG/2 ML VIAL IVP PRN (15:43)
[2017-04-14] MEDS ORDERED: *HR* Dextrose 50 % in Water (Syg) 50 ML SYRINGE IVP PRN (15:43)
[2017-04-14] MEDS ORDERED: Naloxone 0.4 MG/ML INJ IVP PRN (15:43)
[2017-04-14] MEDS: *HR* Metformin 500 MG TABLET PO SCH (16:41)
[2017-04-14] MEDS: *HR* OxyCODONE Immed Rel 5 MG TABLET PO PRN ×2 (17:43→23:44)
--- NOTE | 2017-04-14 17:47 | Electrocardiograph Report ---
[place] [id number] Test Date: 2017-04-14 Pat Name: Linda Sellers Department: 114 Room: [facility] Gender: F Security Technician: LIU : 1970 Requested By: Dino Moore Order Number: [id number] Reading MD: Gil Gastelum Measurements Intervals [place] Rate: 0 P: AL: 0 QRS: 0 QRSD: 0 T: 0 QT: 0 QTc: 0 Interpretive Statements NORMAL SINUS RHYTHM ATYPICAL ECG Electronically Signed On 04-14-2017 17:46:01 EDT by Gil Gastelum
[2017-04-14] MEDS ORDERED: Insulin LISPRO 300 UNITS/3 ML VIAL SQ SCH (21:00)
[2017-04-14] MEDS: BuPROPion SR (12 HR) 150 MG TABLET PO SCH (21:03)
[2017-04-14] MEDS: Vancomycin 2,000 MG in D5% in Water 500 ML IVPB SCH (21:03)
[2017-04-14] MEDS: Insulin DETEMIR 100 UNIT/ML X5UNITS SQ SCH (21:04)
[2017-04-14] MEDS: Acetaminophen 325 MG TABLET PO PRN (22:33)
[2017-04-14] MEDS: 0.9 % Sodium Chloride 1,000 ML IVC SCH (23:44)
[2017-04-15 04:45] LABS: Basophils % 0.3 %; Eosinophils # 0.2 K/mcL (0.0-0.6); Eosinophils % 1.7 %; Hematocrit 39.5 % (35.3-44.9); Hemoglobin 13.6 g/dL (11.5-15.4); Immature Granulocytes % 0.3 % (0-4); Lymphocytes # 2.6 K/mcL (0.6-4.6); Lymphocytes % 25.4 %; Mean Corpuscular HGB Conc 34.4 g/dL (31.6-35.5); Mean Corpuscular Hemoglobin 27.8 pg (28.0-33.3); Mean Corpuscular Volume 80.6 fL (83.0-100.0); Mean Platelet Volume 10.2 fL (9.4-12.4); Monocytes # 1.1 K/mcL (0.0-1.3); Monocytes % 11.1 %; Platelet Count 254 K/mcL (140-400); Red Cell Distribution Width 12.5 % (11.5-14.5); Segmented Neutrophils % 61.2 %
[2017-04-15 04:48] LABS: Neutrophils # 6.2 K/mcL (1.6-8.9)
[2017-04-15 05:11] LABS: Alanine Aminotransferase 8 Units/L (0-55); Albumin 2.2 g/dL (3.5-5.0); Albumin/Globulin Ratio 0.4 (1.1-2.2); Alkaline Phosphatase 83 Units/L (38-126); Aspartate Amino Transferase 11 Units/L (5-34); BUN/Creatinine Ratio 9 (6-26); Bilirubin,Total 0.5 mg/dL (0.2-1.2); Blood Urea Nitrogen 8 mg/dL (7-20); Carbon Dioxide 26 mEq/L (19-29); Chloride 97 mEq/L (98-109); Globulin 4.9 g/dL (2.4-3.5); Glucose 192 mg/dL (70-99); Osmolality,Calculated 284 (280-300); Platelet Estimate Normal (Normal); Potassium 3.9 mEq/L (3.5-4.5); Sodium 135 mEq/L (136-145); Total Protein 7.1 g/dL (6.0-8.3); eGFR For African Americans > 60 (> 60); eGFR For Non-African Americans > 60 (> 60)
[2017-04-15 05:13] LABS: C-Reactive Protein 204 mg/L (Less than 5)
[2017-04-15] MEDS: Piperacillin/Tazobactam 3.375 GM in D5% in Water (Mini-Bag+) 100 ML IVPB SCH ×2 (07:55→17:08)
[2017-04-15] MEDS: *HR* Metformin 500 MG TABLET PO SCH ×2 (07:56→17:09)
[2017-04-15] MEDS: BuPROPion SR (12 HR) 150 MG TABLET PO SCH ×2 (07:56→20:40)
[2017-04-15] MEDS: Insulin LISPRO 300 UNITS/3 ML VIAL SQ SCH ×4 (07:57→20:38)
[2017-04-15] MEDS: TRESIBA U SQ SCH (07:57)
[2017-04-15] MEDS ORDERED: Lidocaine -MPF 1% 5 ML AMPUL INFILT ONE (08:15)
[2017-04-15] MEDS ORDERED: Aminoglycoside Consult 1 EACH MC ONE (08:28)
[2017-04-15] MEDS: Vancomycin 2,000 MG in D5% in Water 500 ML IVPB SCH ×2 (11:56→20:50)
[2017-04-15] MEDS: Acetaminophen 325 MG TABLET PO PRN (12:02)
--- NOTE | 2017-04-15 16:49 | Internal Med Progress Note ---
Date of Encounter: 04/15/17 Time of Encounter: 16:46 - Assessment and plan (1) Gangrene Current Visit: Yes Status: Acute (2) Osteomyelitis of toe of right foot Current Visit: Yes Status: Acute (3) Diabetes mellitus Current Visit: Yes Status: Chronic Qualifiers: Diabetes mellitus type: type 2 Diabetes mellitus complication status: with skin complications Diabetes mellitus complication detail: with foot ulcer Diabetes mellitus skilled nursing insulin use: with termite exterminator use Qualified Code(s) : E11.621 - Type 2 diabetes mellitus with foot ulcer; L97.509 - Non-pressure chronic ulcer of other part of unspecified foot with unspecified severity; Z79.4 - nursing home (current) use of insulin (4) Septic arthritis Current Visit: Yes Status: Suspected Qualifiers: Septic arthritis location: foot Septic arthritis organism: due to unspecified organism Laterality: right Qualified Code(s): M00.9 - Pyogenic arthritis, unspecified (5) Morbid obesity with BMI of 45.0-49.9, adult Current Visit: No Status: Chronic - Subjective Interval history: Miss Linda Engel 46-year-old female came in with foot pain which is diagnosed with osteomyelitis of right fifth metatarsal bone as well as deep infection of first phalangeal bone showing gas. As she came in her white count was elevated as well as her heart rate was up and she was diagnosed with SIRS. She has been started on vancomycin and Zosyn and podiatry's consulted who has taken her to OR. Her potassium was low which is supplemented. Follow-up CBC CMP and CRP will be checked on daily basis. Hemoglobin is borderline at around 9.3. Podiatry has been able to clean out all tissue and had partial resection of fifth and first toe and wound VAC is on no. Patient is on vanc and Zosyn and admitting diagnosis was septic arthritis. In such case she might need IV antibiotics for 4-6 weeks. We will order a PICC line. 04/15 patient was seen today. Her vitals and lab work including CBC and CMP are satisfactory. Cultures are negative to this point. Potassium is corrected. Patient is sitting in chair feels comfortable. As noted above she is on IV vancomycin and Zosyn for partial amputation of her foot due to diabetic ulcer and gangrene. Her sugars are reasonably controlled. A PICC line will be placed after which she will be planned to be sent to [facility] provided podiatry is finished with the debridement and wound care. - Constitutional Vitals: Temp Pulse Resp BP Pulse Ox 98.3 F 87 16 124/86 96 04/15/17 10:43 04/15/17 10:43 04/15/17 10:43 04/15/17 10:43 04/15/17 10:43 - Head Head exam: Present: atraumatic, normocephalic - Eye Eye exam: Present: PERRL, conjuntiva pink, sclera anicteric Pupils: Present: PERRL - Neck Neck exam general surgery: Present: supple, trachea midline. Absent: lymphadenopathy - Respiratory Respiratory exam: Present: CTAB. Absent: accessory muscle use, rales, rhonchi, wheezes - Cardiovascular Cardiovascular exam: Present: RRR, +S1, +S2. Absent: diastolic murmur, gallop, rubs, systolic murmur - GI/Abdominal GI/Abdominal exam: Present: normal bowel sounds, soft, no peritoneal signs. Absent: distended, tenderness - Extremities Exam Extremities exam: Present: warm, radial pulses palpable and symetrical. Absent : calf tenderness, cyanotic, pedal edema Additional comments: Foot is covered in bandage and on wound pump. Detailed examination per podiatry notes. - Neurological Exam Neurological exam: Present: CN II-XII intact, oriented X3, no focal deficits. Absent: pronater drift, facial droop, speech deficit - Skin Skin exam: Present: dry, intact Internal Medicine: Result - Labs CBC & Chem 7: 04/15/17 03:49 04/15/17 03:49 Labs: Short CBC 04/15/17 Range/Units 03:49 WBC 10.2 (4.3-11.1) K/mcL Hgb 13.6 (11.5-15.4) g/dL Hct 39.5 (35.3-44.9) % Plt Count 254 (140-400) K/mcL Neutrophils # 6.2 (1.6-8.9) K/mcL BMP 04/15/17 03:49 Sodium 135 L Potassium 3.9 Chloride 97 L Carbon Dioxide 26 BUN 8 Creatinine 0.93 Glucose 192 H Calcium 9.0 Liver Function 04/15/17 Range/Units 03:49 Total Bilirubin 0.5 (0.2-1.2) mg/dL AST 11 (5-34) Units/L ALT 8 (0-55) Units/L Alkaline Phosphatase 83 (38-126) Units/L Albumin 2.2 L (3.5-5.0) g/dL - VTE Documentation of Mechanical Device: Intermittent pneumatic compression device Consult Discharge Plan - Plan Referrals: NO,PCP [Primary Care Provider] -
--- NOTE | 2017-04-15 19:56 | Arterial Study Report ---
LE Arterial Physiologic Study Patient Name:Linda Sellers Order Number:[id number] Procedure Date:04/14/2017 Date:1970Age:46 yrs Gender:Female Rt.BP:123 / mmHgHeart Rate: Location:[facility] Room #: [facility] Apiculturist:Aamir Howard GERALD Referring MD:Dino Moore MD laborer syrup machine:None Reading MD:Chava Soto MD Primary Indications:Toe ulcer Risk Factors Yes/No Smoking Current Yes Impressions: The bilateral lower extremities are hemodynamically well maintained. The right COLT and waveforms are normal. Right COLT 1.22. The left COLT and waveforms are normal. Left COLT: 1.26. Recommendations: After imaging the patient returned to their room. Findings LE Arterial Physiologic Exam: Segmental Pressures: Right: The right posterior tibial pressure is 150 mmHg with an index of 1.22. The right dorsalis pedis pressure is 130 mmHg with an index of 1.06. Left: The left posterior tibial pressure is 155 mmHg with an index of 1.26. The left dorsalis pedis pressure is 138 mmHg with an index of 1.12. PVR: Right: The PVR waveforms are normal in the right ankle. Left: The PVR waveforms are normal in the left ankle. Prior Study: No prior study available for comparison. Segmental Pressures Side Location Pressure Index Result Right Posterior Tibial 150 1.22 Normal Right Dorsalis Pedis 130 1.06 Normal Left Posterior Tibial 155 1.26 Normal Left Dorsalis Pedis 138 1.12 Normal Ankle Brachial Index Right Systolic Diastolic COLT Brachial 123 1.22 Dorsalis Pedis 130 1.06 Posterior Tibial 150 1.22 Left Systolic Diastolic COLT Brachial 1.26 Dorsalis Pedis 138 1.12 Posterior Tibial 155 1.26 Updated by Chava Soto MD on 04/15/2017 7:51:53 PM with Status of Final electronically signed on 04/15/2017 7:52:20 PM with status of Final
[2017-04-15] MEDS: Insulin DETEMIR 100 UNIT/ML X5UNITS SQ SCH (20:40)
[2017-04-15] MEDS: *HR* OxyCODONE Immed Rel 5 MG TABLET PO PRN (20:49)
--- NOTE | 2017-04-15 22:08 | Podiatry Progress Note ---
Date of Encounter: 04/15/17 Time of Encounter: 11:30 - Assessment and Plan (1) Osteomyelitis of toe of right foot Current Visit: Yes Status: Acute Assessed at bedside, patient awake alert and oriented and agreeable with plan. Patient has been NPO since midnight receiving vancomycin and zosyn IV antibiotic coverage. Admit WBC 21 Plan: Amputation of 5th digit, I&D and cultures of right foot per today 04/14/17 Surgical consent on chart, patient denies any questions Patient has been unable to void for required screen for surgical clearance. Ordered serum blood screen a this time. Will obtain cultures in surgery, continue current antibiotic coverage until culture results have returned 04/15/17 s/p amputation of toe #5 right foot. Wound vac intact and running without issue. To stay in place until tuesday. Change MWF Awaiting surgical cultures to return which will determine appropriate antibiotic coverage Patient to be weight bearing only to heel- will have post op shoe in room for patient to use while ambulating Continue Vancomycin and Zosyn coverage at this time. WBC trending down Call with any issues or concerns Spoke with patient extensively at bedside about tight glucose control to promote healing. Diet restrictions regarding carbs and sugar discussed. 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 Sellers is a 46 year old female who arrived to [facility] last night with complaints of discoloration to right foot toe #5. Patient states that she noticed 2-3 days ago it was a little dark. States that yesterday she noticed it was really dark, she was having some pain to the toe and states she had a "little fever" Patient denies any known trauma to toe but states she walks barefoot everywhere or wears thin open toed slippers. Patient has hx of diabetes mellitus which she states has been poorly controlled. Patient was evaluated in ED and admitted with osteomyelitis of the 5th digit with gas noted to CT and presence of necrosis of toe. was contacted over night, patient was made NPO and plan for surgical intervention today. Patient resting comfortably on arrival to room. Patient states she has some pain to the toe at this time. Patient denies any fevers, chills, n/v or flu like symptoms at this time. Patient denies any calf pain. Patient awaiting surgery, denies any questions. 04/15/17 Patient underwent I&D and amputation of toe #5 of right digit on 04/14/[address] Beebe. Upon entering room patient is sitting up in chair eating a cheeseburger and fries. Patient denies any pain at this time. Patient states she feels ok. Patient denies any fevers, chills, n/v or flu like symptoms. Patient denies any calf pain. Wound vac intact and running without issue. Objective - Vital Signs Vital Signs: Vital Signs Temp Pulse Resp BP Pulse Ox 04/15/17 20:54 99 04/15/17 20:47 98.2 F 81 16 139/84 98 04/15/17 10:43 98.3 F 87 16 124/86 96 04/15/17 07:01 98.5 F 90 16 128/82 95 04/15/17 01:08 98.3 F 83 18 125/82 94 Intake and Output 04/15/17 04/15/17 04/15/17 07:59 15:59 23:59 Intake Total 100 / 100 550 / 550 600 / 600 Output Total 25 / 25 600 / 600 75 / 75 Balance 75 / 75 -50 / -50 525 / 525 Intake: IV Fluids 100 / 100 100 / 100 500 / 500 Zosyn 3.375 GM In 100 / 100 100 / 100 Dextrose 5% (Minibag+) 100 ML 100 ML @ 25 mls/hr IVPB Q8HR [facility] Rx#: [id number] Vancocin 2,000 MG In 500 / 500 Dextrose 5% 500 ML @ 250 mls/hr IVPB Q12H [facility] Rx#: [id number] Oral 0 / 0 450 / 450 100 / 100 Output: Urine 0 / 0 600 / 600 Wound Drainage 25 / 25 75 / 75 Right Foot 75 / 75 Other: Stool Size Moderate Stool Consistency soft Stool Characteristics Normal for Patient # Voids 2 # Bowel Movements 1 Weight 129.1 kg Blood Glucose* 153 146 143 Patient Weight 04/15/17 23:59 Weight 129.1 kg - Exam Exam: Wound vac intact to operative site running without issue, 50ml bloody drainage noted to wound vac canister toes slightly cool to touch #1 through #4 but patient has foot resting on floor without socks Cap refill 3 seconds Sensation intact to toes Movement intact to toes Will leave wound vac in place at this time No calf pain with manual compression Patient awake, alert and oriented. - Lab Result Diagrams: 04/15/17 03:49 04/15/17 03:49 Labs: Abnormal lab results MCV 80.6 fL (83.0-100.0) L 04/15/17 03:49 MCH 27.8 pg (28.0-33.3) L 04/15/17 03:49 ESR >= 130 mm/hr (0-15) H 04/13/17 18:00 Sodium 135 mEq/L (136-145) L 04/15/17 03:49 Chloride 97 mEq/L (98-109) L 04/15/17 03:49 Glucose 192 mg/dL (70-99) H 04/15/17 03:49 POC Glucose 143 (58-89) H 04/15/17 20:37 Hemoglobin A1c 9.3 % (-5.6) H 04/14/17 05:02 C-Reactive Protein 204 mg/L (Less than 5) H 04/15/17 03:49 Albumin 2.2 g/dL (3.5-5.0) L 04/15/17 03:49 Globulin 4.9 g/dL (2.4-3.5) H 04/15/17 03:49 Albumin/Globulin Ratio 0.4 (1.1-2.2) L 04/15/17 03:49 Microbiology, Last 48 Hours 04/14/17 14:57 Gram Stain - Final Right Foot - VTE Documentation of Mechanical Device: Intermittent pneumatic compression device Consult Discharge Plan - Plan Referrals: NO,PCP [Primary Care Provider] -
[2017-04-16] MEDS: Piperacillin/Tazobactam 3.375 GM in D5% in Water (Mini-Bag+) 100 ML IVPB SCH ×4 (00:20→23:58)
[2017-04-16 04:55] LABS: Basophils % 0.3 %; Eosinophils # 0.1 K/mcL (0.0-0.6); Eosinophils % 1.2 %; Hematocrit 37.3 % (35.3-44.9); Hemoglobin 13.1 g/dL (11.5-15.4); Immature Granulocytes % 0.5 % (0-4); Lymphocytes # 2.7 K/mcL (0.6-4.6); Lymphocytes % 23.8 %; Mean Corpuscular HGB Conc 35.1 g/dL (31.6-35.5); Mean Corpuscular Hemoglobin 28.3 pg (28.0-33.3); Mean Corpuscular Volume 80.6 fL (83.0-100.0); Monocytes # 1.3 K/mcL (0.0-1.3); Monocytes % 11.3 %; Neutrophils # 7.2 K/mcL (1.6-8.9); Platelet Count 245 K/mcL (140-400); Red Blood Count 4.63 M/mcL (3.82-4.97); Red Cell Distribution Width 12.7 % (11.5-14.5); Segmented Neutrophils % 62.9 %
[2017-04-16 05:10] LABS: Albumin 2.1 g/dL (3.5-5.0); Albumin/Globulin Ratio 0.4 (1.1-2.2); Bilirubin,Total 0.5 mg/dL (0.2-1.2); Calcium 8.6 mg/dL (8.6-10.8); Globulin 4.8 g/dL (2.4-3.5); Potassium 3.5 mEq/L (3.5-4.5); Total Protein 6.9 g/dL (6.0-8.3)
[2017-04-16 05:17] LABS: Platelet Estimate Normal (Normal)
[2017-04-16] MEDS: TRESIBA U SQ SCH (08:17)
[2017-04-16] MEDS: Insulin LISPRO 300 UNITS/3 ML VIAL SQ SCH ×4 (08:17→20:12)
[2017-04-16] MEDS: *HR* Metformin 500 MG TABLET PO SCH (08:19)
[2017-04-16] MEDS: Vancomycin 2,000 MG in D5% in Water 500 ML IVPB SCH (08:20)
[2017-04-16] MEDS: BuPROPion SR (12 HR) 150 MG TABLET PO SCH ×2 (08:20→20:10)
--- NOTE | 2017-04-16 08:58 | Podiatry Progress Note ---
Date of Encounter: 04/16/17 Time of Encounter: 08:56 - Assessment and Plan (1) Gangrene of toe Current Visit: Yes Status: Acute Assessment: #1 status post amputation of toe #5 with incision and drainage of the right foot for abscess and infection healing uneventfully without complication wound VAC intact. #2 patient is afebrile with slight bump in WBC count. Creatinine doubled. #3 culture still pending please see Gram stain Plan: #1 change wound VAC today without difficulty #2 continue present antibiotic therapy #3 Would recommend discontinuation of vancomycin as soon as possible/pending sensitivities. (2) Gangrene Current Visit: Yes Status: Acute Subjective Principal diagnosis: Gangrene of #5 toe, with abscess right foot. Interval history: We are now postop day #1 for I&D and debridement with amputation of toe #5 for gangrene of the digit. Patient with complaints of chest pain nausea vomiting fever chills shortness of breath. Objective - Vital Signs Vital Signs: Vital Signs Temp Pulse Resp BP Pulse Ox 04/16/17 06:53 98.0 F 72 18 114/76 94 04/16/17 00:00 98.2 F 82 18 120/79 98 04/15/17 20:54 99 04/15/17 20:47 98.2 F 81 16 139/84 98 04/15/17 10:43 98.3 F 87 16 124/86 96 Intake and Output 04/15/17 04/16/17 04/16/17 23:59 07:59 15:59 Intake Total 700 / 700 600 / 600 Output Total 75 / 75 Balance 625 / 625 600 / 600 Intake: IV Fluids 600 / 600 600 / 600 Zosyn 3.375 GM In 100 / 100 100 / 100 Dextrose 5% (Minibag+) 100 ML 100 ML @ 25 mls/hr IVPB Q8HR [facility] Rx#: [id number] Vancocin 2,000 MG In 500 / 500 500 / 500 Dextrose 5% 500 ML @ 250 mls/hr IVPB Q12H [facility] Rx#: [id number] Oral 100 / 100 Output: Wound Drainage 75 / 75 Right Foot 75 / 75 Other: Stool Size Moderate Stool Consistency soft Stool Characteristics Normal for Patient # Voids 2 2 # Bowel Movements 1 Weight 128 kg Blood Glucose* 143 122 Patient Weight 04/16/17 23:59 Weight 128 kg - Exam Exam: Wound VAC intact. Approximate 75 mL of serosanguineous drainage only. We expect to see some maceration around the periwound tissue. No evidence of further abscess or obvious infection of the wound wound is clean granulation tissue. No slough noted on exam. Incision: Present: healing Capillary Refill: less than 3 seconds (All digits #123 and 4 right foot) - Lab Result Diagrams: 04/16/17 04:30 04/16/17 04:30 Labs: Abnormal lab results WBC 11.4 K/mcL (4.3-11.1) H 04/16/17 04:30 MCV 80.6 fL (83.0-100.0) L 04/16/17 04:30 ESR >= 130 mm/hr (0-15) H 04/13/17 18:00 Sodium 133 mEq/L (136-145) L 04/16/17 04:30 Chloride 97 mEq/L (98-109) L 04/16/17 04:30 Creatinine 1.88 mg/dL (0.57-1.11) H D 04/16/17 04:30 Est GFR ( Amer) 35 (> 60) L 04/16/17 04:30 Est GFR (Non-Af Amer) 29 (> 60) L 04/16/17 04:30 Glucose 139 mg/dL (70-99) H 04/16/17 04:30 POC Glucose 143 (58-89) H 04/15/17 20:37 Hemoglobin A1c 9.3 % (-5.6) H 04/14/17 05:02 Calculated Osmolality 278 (280-300) L 04/16/17 04:30 C-Reactive Protein 156 mg/L (Less than 5) H 04/16/17 04:30 Albumin 2.1 g/dL (3.5-5.0) L 04/16/17 04:30 Globulin 4.8 g/dL (2.4-3.5) H 04/16/17 04:30 Albumin/Globulin Ratio 0.4 (1.1-2.2) L 04/16/17 04:30 Microbiology, Last 48 Hours 04/14/17 14:57 Gram Stain - Final Right Foot - VTE Documentation of Mechanical Device: Intermittent pneumatic compression device Consult Discharge Plan - Plan Referrals: NO,PCP [Primary Care Provider] -
--- NOTE | 2017-04-16 11:27 | Nephrology Consult Note ---
Date of Encounter: 04/16/17 Time of Encounter: 11:25 Assessment and Plan (1) JIGNESH (acute kidney injury) Current Visit: Yes Status: Acute The patient has nonoliguric acute kidney injury related to vancomycin use versus contrast-induced nephropathy. We will perform acute kidney injury workup to evaluate for possible other causes. I recommend avoiding nephrotoxic agents especially iodinated contrast dye and NSAIDs. I agree with intravenous hydration. I agree with discontinuing vancomycin. I will check a random vancomycin level. (2) Osteomyelitis Current Visit: Yes Status: Acute We will defer management to the primary team. Continue antibiotic therapy. Agree with discontinuing vancomycin. Qualifiers: Osteomyelitis type: other acute Osteomyelitis location: foot Laterality: right Qualified Code(s): M86.171 - Other acute osteomyelitis, right ankle and foot (3) Diabetes mellitus Current Visit: Yes Status: Chronic We will defer management to the primary team. Keep hemoglobin A1c less than 7.0. 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 (5) Hyponatremia Current Visit: Yes Status: Acute We will check TSH. We will monitor closely. Will likely improve with saline infusion. We will check urine and serum osmolality. (6) Vitamin D deficiency Current Visit: Yes Status: Acute 12 weeks of high-dose replacement has been ordered. History of Present Illness - Reason for Consult Consult date: 04/16/17 Acute Kidney Injury - Chief Complaint JIGNESH - History of Present Illness Mrs. Sellers is a 46 yo woman with a history of morbid obesity who presented with pain in her foot and was found to have osteomyelitis. She was treated with vancomycin and Zosyn and subsequently developed acute kidney injury. She reports a family history of kidney disease and her mother who had thin basement membrane. She denies a personal history of renal problems. She denies chest pain, shortness of breath, or urinary problems. Past Med Surg Social Fam HX - Past Medical History Medical history: diabetes, other Psychiatric history: anxiety, depression - Past Surgical History Surgical History: orthopedic, other (Left knee surgery 2) - Social History Smoking Status: Current every day smoker Packs per day: 0.5 Smokeless Tobacco Status: No Alcohol use: none Drug use: none Medications and Allergies BuPROPion SR (12 HR) [Wellbutrin SR] 150 mg PO BID 10/03/15 [History] Metformin [Glucophage] 1,000 mg PO BID 10/03/15 [History] Ergocalciferol (VITAMIN D2) [Vitamin D2] 50,000 unit PO SA 04/13/17 [History] Insulin Degludec [Tresiba Flextouch U-100] 22 unit SQ DAILY 04/13/17 [History] Liraglutide [Victoza 2-Sameer] 1.8 mg SQ DAILY 04/13/17 [History] Spironolactone [Aldactone] 25 mg PO DAILY 04/13/17 [History] hydrOXYzine HCl [Hydroxyzine HCl] 25 - 50 mg PO TID PRN 04/13/17 [History] Allergies No Known Allergies Allergy (Unverified 06/05/15 08:07) Review of Systems All Systems: reviewed and no additional remarkable complaints except as stated ( As documented in the history of present illness.) Exam - Vital Signs Vital signs: Initial Vital Signs Temp Pulse Resp BP Pulse Ox 98.6 F 104 18 128/85 94 04/13/17 16:49 04/13/17 16:49 04/13/17 16:49 04/13/17 16:49 04/13/17 16:49 Vital Signs - Last 8 Hours Temp Pulse Resp BP Pulse Ox 04/16/17 11:01 97.6 F 78 16 112/74 96 04/16/17 06:53 98.0 F 72 18 114/76 94 Intake and Output 04/15/17 04/16/17 04/16/17 23:59 07:59 15:59 Intake Total 700 / 700 600 / 600 500 / 500 Output Total 75 / 75 75 / 75 Balance 625 / 625 600 / 600 425 / 425 Intake: IV Fluids 600 / 600 600 / 600 500 / 500 Zosyn 3.375 GM In 100 / 100 100 / 100 Dextrose 5% (Minibag+) 100 ML 100 ML @ 25 mls/hr IVPB Q8HR [facility] Rx#: [id number] Vancocin 2,000 MG In 500 / 500 500 / 500 500 / 500 Dextrose 5% 500 ML @ 250 mls/hr IVPB Q12H [facility] Rx#: [id number] Oral 100 / 100 Output: Wound Drainage 75 / 75 75 / 75 Right Foot 75 / 75 75 / 75 Other: Stool Size Moderate Stool Consistency soft Stool Characteristics Normal for Patient # Voids 2 2 # Bowel Movements 1 Weight 128 kg Blood Glucose* 143 122 213 Patient Weight 04/16/17 23:59 Weight 128 kg - General Appearance General appearance: well-developed, well-nourished, obese EENT: ATNC Neck: supple Respiratory: clear Cardiology: no edema (Right leg is an Antoine wrap), regular rate, regular rhythm Gastrointestinal: normoactive bowel sounds, no tenderness, obese Integumentary: warm and dry Neurologic: alert and oriented x3 Musculoskeletal: no cyanosis Psychiatric: mood/affect appropriate Results - Lab Results 04/16/17 04:30 04/16/17 04:30 Most recent lab results Calcium 8.6 mg/dL (8.6-10.8) 04/16/17 04:30 Consult Discharge Plan - Plan Referrals: NO,PCP [Primary Care Provider] -
[2017-04-16 14:00] LABS: Bilirubin,Urine Negative (Negative); Blood,Urine Small (Negative); Clarity,Urine Cloudy (Clear); Color,Urine Yellow (Yellow); Glucose,Urine (UA) Normal (Normal); Ketones,Urine Negative (Negative); Leukocyte Esterase,Urine Negative (Negative); Nitrite,Urine Negative (Negative); Protein,Urine Trace mg/dL (Neg-Trace); Specific Gravity,Urine 1.007 (1.010-1.025); Urobilinogen,Urine Normal (Normal)
[2017-04-16 14:12] LABS: Bacteria,Urine Many per hpf (None-Few); RBC,Urine 0-3 per hpf (0-3); Squamous Epithelial Cell,Urine Few per lpf (None-Few)
[2017-04-16 14:21] LABS: Creatinine,Urine 30 mg/dL; Microalbum/Creatinine Ratio,Ur 320 (0-30); Microalbumin,Urine 96 mg/L
[2017-04-16 14:22] LABS: Sodium, Urine < 20.0 mEq/L
[2017-04-16] MEDS: 0.9 % Sodium Chloride 1,000 ML IVC SCH ×2 (15:20→20:12)
[2017-04-16] MEDS: Insulin DETEMIR 100 UNIT/ML X5UNITS SQ SCH (20:10)
[2017-04-17] MEDS: 0.9 % Sodium Chloride 1,000 ML IVC SCH ×4 (03:13→23:56)
[2017-04-17 03:36] LABS: Basophils % 0.4 %; Eosinophils # 0.1 K/mcL (0.0-0.6); Eosinophils % 1.3 %; Hematocrit 37.4 % (35.3-44.9); Hemoglobin 12.5 g/dL (11.5-15.4); Immature Granulocytes % 0.5 % (0-4); Mean Corpuscular HGB Conc 33.4 g/dL (31.6-35.5); Mean Corpuscular Hemoglobin 26.9 pg (28.0-33.3); Mean Corpuscular Volume 80.6 fL (83.0-100.0); Mean Platelet Volume 9.7 fL (9.4-12.4); Monocytes % 9.3 %; Neutrophils # 6.5 K/mcL (1.6-8.9); Platelet Count 266 K/mcL (140-400); Red Blood Count 4.64 M/mcL (3.82-4.97); Red Cell Distribution Width 12.5 % (11.5-14.5); Segmented Neutrophils % 60.5 %
[2017-04-17 03:41] LABS: Albumin/Globulin Ratio 0.4 (1.1-2.2); Bilirubin,Total 0.5 mg/dL (0.2-1.2); Calcium 8.3 mg/dL (8.6-10.8); Globulin 4.7 g/dL (2.4-3.5); Potassium 3.5 mEq/L (3.5-4.5); Total Protein 6.7 g/dL (6.0-8.3)
[2017-04-17 04:23] LABS: Platelet Estimate Normal (Normal); Reactive Lymphocytes Present (Not Present)
[2017-04-17] MEDS: Insulin LISPRO 300 UNITS/3 ML VIAL SQ SCH ×4 (09:14→21:01)
[2017-04-17] MEDS: TRESIBA U SQ SCH (09:15)
[2017-04-17] MEDS: Piperacillin/Tazobactam 3.375 GM in D5% in Water (Mini-Bag+) 100 ML IVPB SCH ×3 (09:21→23:44)
[2017-04-17] MEDS: BuPROPion SR (12 HR) 150 MG TABLET PO SCH ×2 (09:22→21:00)
--- NOTE | 2017-04-17 13:07 | Nephrology Progress Note ---
Date of Encounter: 04/17/17 Time of Encounter: 13:03 - Assessment and Plan (1) JIGNESH (acute kidney injury) Current Visit: Yes Status: Acute Patient with multifactorial acute kidney injury likely secondary to vancomycin use as well as contrast-induced nephropathy. She is nonoliguric, but her creatinine continues to rise. I agree with discontinuation of vancomycin and continue with IV hydration. Continue to avoid nephrotoxic agents and adjust medications for renal function. (2) Osteomyelitis Current Visit: Yes Status: Acute Per the primary team Qualifiers: Osteomyelitis type: other acute Osteomyelitis location: foot Laterality: right Qualified Code(s): M86.171 - Other acute osteomyelitis, right ankle and foot (3) Diabetes mellitus Current Visit: Yes Status: Chronic Per the primary team. 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 (5) Hyponatremia Current Visit: Yes Status: Acute Sodium level is back to normal continue to monitor. (6) Vitamin D deficiency Current Visit: Yes Status: Acute Continue ergocalciferol. Monitor calcium levels. Subjective Principal diagnosis: Gangrene of #5 toe, with abscess right foot. Interval history: Patient seen and evaluated. She is sitting up in a chair. She has no complaints. Review of system otherwise is stable and negative. Objective - Vital Signs Vital signs: Vital Signs Temp Pulse Resp BP Pulse Ox 04/17/17 11:38 98.1 F 69 18 132/84 99 04/17/17 09:48 96 04/17/17 06:33 98.1 F 82 20 121/74 96 04/17/17 00:10 97.5 F L 73 17 128/82 100 04/16/17 20:00 100 04/16/17 19:53 97.7 F 78 18 128/80 100 04/16/17 14:42 97.7 F 70 108/74 96 Intake and Output 04/16/17 04/17/1704/17/17 23:59 07:59 15:59 Intake Total 420 / 420 1340 / 1340 240 / 240 Output Total 100 / 100 Balance 420 / 420 1340 / 1340 140 / 140 Intake: IV Fluids 100 / 100 1100 / 1100 0.9 % Sodium Chloride 1, 1000 / 1000 000 ML @ 75 mls/hr IVC . [id number] [facility] Rx#: [id number] Zosyn 3.375 GM In 100 / 100 100 / 100 Dextrose 5% (Minibag+) 100 ML 100 ML @ 25 mls/hr IVPB Q8HR [facility] Rx#: [id number] Oral 320 / 320 240 / 240 240 / 240 Output: Wound Drainage 100 / 100 Right Foot 100 / 100 Other: Meal Dinner Breakfast Percent of Meal Consumed 50% 90% # Voids 2 Weight 128.1 kg Blood Glucose* 136 101 154 Patient Weight 04/17/17 23:59 Weight 128.1 kg - General Appearance General appearance: Present: well-developed, well-nourished, obese EENT: Present: ATNC Neck: Present: supple Respiratory: Present: clear Cardiology: Present: edema, regular rate Integumentary: Present: warm and dry Neurologic: Present: alert and oriented x3 Psychiatric: Present: mood/affect appropriate - Lab 04/17/17 03:20 04/17/17 03:20 Most recent lab results Calcium 8.3 mg/dL (8.6-10.8) L 04/17/17 03:20 Urine Creatinine 30 mg/dL 04/16/17 13:27 Urine Sodium < 20.0 mEq/L 04/16/17 13:27 Urine Total Protein 21 mg/dL (1-14) H 04/16/17 13:27 - VTE Documentation of Mechanical Device: Intermittent pneumatic compression device Consult Discharge Plan - Plan Referrals: NO,PCP [Primary Care Provider] -
--- NOTE | 2017-04-17 16:08 | Internal Med Progress Note ---
Date of Encounter: 04/17/17 Time of Encounter: 16:05 - Assessment and plan (1) Gangrene Current Visit: Yes Status: Acute (2) Osteomyelitis of toe of right foot Current Visit: Yes Status: Acute (3) Diabetes mellitus Current Visit: Yes Status: Chronic Qualifiers: Diabetes mellitus type: type 2 Diabetes mellitus complication status: with skin complications Diabetes mellitus complication detail: with foot ulcer Diabetes mellitus half-way insulin use: with long term care social worker use Qualified Code(s) : E11.621 - Type 2 diabetes mellitus with foot ulcer; L97.509 - Non-pressure chronic ulcer of other part of unspecified foot with unspecified severity; Z79.4 - assisted (current) use of insulin (4) Septic arthritis Current Visit: Yes Status: Suspected Qualifiers: Septic arthritis location: foot Septic arthritis organism: due to unspecified organism Laterality: right Qualified Code(s): M00.9 - Pyogenic arthritis, unspecified (5) Morbid obesity with BMI of 45.0-49.9, adult Current Visit: No Status: Chronic (6) JIGNESH (acute kidney injury) Current Visit: Yes Status: Acute - Subjective Interval history: Miss Linda Engel 46-year-old female came in with foot pain which is diagnosed with osteomyelitis of right fifth metatarsal bone as well as deep infection of first phalangeal bone showing gas. As she came in her white count was elevated as well as her heart rate was up and she was diagnosed with SIRS. She has been started on vancomycin and Zosyn and podiatry's consulted who has taken her to OR. Her potassium was low which is supplemented. Follow-up CBC CMP and CRP will be checked on daily basis. Hemoglobin is borderline at around 9.3. Podiatry has been able to clean out all tissue and had partial resection of fifth and first toe and wound VAC is on no. Patient is on vanc and Zosyn and admitting diagnosis was septic arthritis. In such case she might need IV antibiotics for 4-6 weeks. We will order a PICC line. 04/15 patient was seen today. Her vitals and lab work including CBC and CMP are satisfactory. Cultures are negative to this point. Potassium is corrected. Patient is sitting in chair feels comfortable. As noted above she is on IV vancomycin and Zosyn for partial amputation of her foot due to diabetic ulcer and gangrene. Her sugars are reasonably controlled. A PICC line will be placed after which she will be planned to be sent to ECF provided podiatry is finished with the debridement and wound care. 04/16 patient is asymptomatic. However her creatinine has been rising. We have stopped her vancomycin and metformin and consulted nephrology. IV hydration is started. Concern is that this could be drug induced versus sepsis versus IV contrast dye induced. Electrolytes are corrected. Patient is a still on Zosyn and podiatry has put a wound VAC which is working okay. Plan to put the PICC line before discharging to ECF. - Constitutional Vitals: Temp Pulse Resp BP Pulse Ox 97.6 F 67 18 131/84 98 04/17/17 14:58 04/17/17 14:58 04/17/17 14:58 04/17/17 14:58 04/17/17 14:58 - Head Head exam: Present: atraumatic, normocephalic - Eye Eye exam: Present: PERRL, conjuntiva pink, sclera anicteric Pupils: Present: PERRL - Neck Neck exam general surgery: Present: supple, trachea midline. Absent: lymphadenopathy - Respiratory Respiratory exam: Present: CTAB. Absent: accessory muscle use, rales, rhonchi, wheezes - Cardiovascular Cardiovascular exam: Present: RRR, +S1, +S2. Absent: diastolic murmur, gallop, rubs, systolic murmur - GI/Abdominal GI/Abdominal exam: Present: normal bowel sounds, soft, no peritoneal signs. Absent: distended, tenderness - Extremities Exam Extremities exam: Present: warm. Absent: calf tenderness, cyanotic, pedal edema Additional comments: Foot is covered with dressing and wound VAC. Toes coloration and temperature is normal. Further examination as per podiatry - Neurological Exam Neurological exam: Present: CN II-XII intact, oriented X3, no focal deficits. Absent: pronater drift, facial droop, speech deficit - Skin Skin exam: Present: dry, intact Internal Medicine: Result - Labs CBC & Chem 7: 04/17/17 03:20 04/17/17 03:20 Labs: Short CBC 04/17/17 Range/Units 03:20 WBC 10.7 (4.3-11.1) K/mcL Hgb 12.5 (11.5-15.4) g/dL Hct 37.4 (35.3-44.9) % Plt Count 266 (140-400) K/mcL Neutrophils # 6.5 (1.6-8.9) K/mcL BMP 04/17/17 03:20 Sodium 136 Potassium 3.5 Chloride 101 Carbon Dioxide 24 BUN 16 Creatinine 3.11 H D Glucose 107 H Calcium 8.3 L Liver Function 04/17/17 Range/Units 03:20 Total Bilirubin 0.5 (0.2-1.2) mg/dL AST 13 (5-34) Units/L ALT 8 (0-55) Units/L Alkaline Phosphatase 81 (38-126) Units/L Albumin 2.0 L (3.5-5.0) g/dL - Impressions Impressions Retroperitoneum Ultrasound 04/16/17 11:43 IMPRESSION: 1. No evidence of hydronephrosis. 2. Asymmetric enlargement of the right kidney, which is nonspecific but could be related to a congenital variant versus parenchymal edema. 3. Elevated postvoid residual volume of 109.8 mL. D/ / 04/16/2017 18:20:58 Crow Kruger MD / neil Interpreting Provider: Crow Kruger MD - VTE Documentation of Mechanical Device: Intermittent pneumatic compression device Consult Discharge Plan - Plan Referrals: NO,PCP [Primary Care Provider] -
--- NOTE | 2017-04-17 16:13 | Internal Med Progress Note ---
Date of Encounter: 04/17/17 Time of Encounter: 16:11 - Assessment and plan (1) Gangrene Current Visit: Yes Status: Acute (2) Osteomyelitis of toe of right foot Current Visit: Yes Status: Acute (3) Diabetes mellitus Current Visit: Yes Status: Chronic Qualifiers: Diabetes mellitus type: type 2 Diabetes mellitus complication status: with skin complications Diabetes mellitus complication detail: with foot ulcer Diabetes mellitus long-term insulin use: with terminal press operator use Qualified Code(s) : E11.621 - Type 2 diabetes mellitus with foot ulcer; L97.509 - Non-pressure chronic ulcer of other part of unspecified foot with unspecified severity; Z79.4 - penitentiary (current) use of insulin (4) Septic arthritis Current Visit: Yes Status: Suspected Qualifiers: Septic arthritis location: foot Septic arthritis organism: due to unspecified organism Laterality: right Qualified Code(s): M00.9 - Pyogenic arthritis, unspecified (5) Morbid obesity with BMI of 45.0-49.9, adult Current Visit: No Status: Chronic (6) JIGNESH (acute kidney injury) Current Visit: Yes Status: Acute - Subjective Interval history: Miss Linda Engel 46-year-old female came in with foot pain which is diagnosed with osteomyelitis of right fifth metatarsal bone as well as deep infection of first phalangeal bone showing gas. As she came in her white count was elevated as well as her heart rate was up and she was diagnosed with SIRS. She has been started on vancomycin and Zosyn and podiatry's consulted who has taken her to OR. Her potassium was low which is supplemented. Follow-up CBC CMP and CRP will be checked on daily basis. Hemoglobin is borderline at around 9.3. Podiatry has been able to clean out all tissue and had partial resection of fifth and first toe and wound VAC is on no. Patient is on vanc and Zosyn and admitting diagnosis was septic arthritis. In such case she might need IV antibiotics for 4-6 weeks. We will order a PICC line. 04/15 patient was seen today. Her vitals and lab work including CBC and CMP are satisfactory. Cultures are negative to this point. Potassium is corrected. Patient is sitting in chair feels comfortable. As noted above she is on IV vancomycin and Zosyn for partial amputation of her foot due to diabetic ulcer and gangrene. Her sugars are reasonably controlled. A PICC line will be placed after which she will be planned to be sent to ECF provided podiatry is finished with the debridement and wound care. 04/16 patient is asymptomatic. However her creatinine has been rising. We have stopped her vancomycin and metformin and consulted nephrology. IV hydration is started. Concern is that this could be drug induced versus sepsis versus IV contrast dye induced. Electrolytes are corrected. Patient is a still on Zosyn and podiatry has put a wound VAC which is working okay. Plan to put the PICC line before discharging to ECF. 04/17 patient is asymptomatic. Her creatinine is still rising and nephrology is on the case. She is on vancomycin - Constitutional Vitals: Temp Pulse Resp BP Pulse Ox 97.6 F 67 18 131/84 98 04/17/17 14:58 04/17/17 14:58 04/17/17 14:58 04/17/17 14:58 04/17/17 14:58 - Head Head exam: Present: atraumatic, normocephalic - Eye Eye exam: Present: PERRL, conjuntiva pink, sclera anicteric Pupils: Present: PERRL - Neck Neck exam general surgery: Present: supple, trachea midline. Absent: lymphadenopathy - Respiratory Respiratory exam: Present: CTAB. Absent: accessory muscle use, rales, rhonchi, wheezes - Cardiovascular Cardiovascular exam: Present: RRR, +S1, +S2. Absent: diastolic murmur, gallop, rubs, systolic murmur - GI/Abdominal GI/Abdominal exam: Present: normal bowel sounds, soft, no peritoneal signs. Absent: distended, tenderness - Extremities Exam Extremities exam: Present: warm, radial pulses palpable and symetrical. Absent : calf tenderness, cyanotic, pedal edema Additional comments: No change in foot examination white count has normalized - Neurological Exam Neurological exam: Present: CN II-XII intact, oriented X3, no focal deficits. Absent: pronater drift, facial droop, speech deficit - Skin Skin exam: Present: dry, intact Internal Medicine: Result - Labs CBC & Chem 7: 04/17/17 03:20 04/17/17 03:20 Labs: Short CBC 04/17/17 Range/Units 03:20 WBC 10.7 (4.3-11.1) K/mcL Hgb 12.5 (11.5-15.4) g/dL Hct 37.4 (35.3-44.9) % Plt Count 266 (140-400) K/mcL Neutrophils # 6.5 (1.6-8.9) K/mcL BMP 04/17/17 03:20 Sodium 136 Potassium 3.5 Chloride 101 Carbon Dioxide 24 BUN 16 Creatinine 3.11 H D Glucose 107 H Calcium 8.3 L Liver Function 04/17/17 Range/Units 03:20 Total Bilirubin 0.5 (0.2-1.2) mg/dL AST 13 (5-34) Units/L ALT 8 (0-55) Units/L Alkaline Phosphatase 81 (38-126) Units/L Albumin 2.0 L (3.5-5.0) g/dL - Impressions Impressions Retroperitoneum Ultrasound 04/16/17 11:43 IMPRESSION: 1. No evidence of hydronephrosis. 2. Asymmetric enlargement of the right kidney, which is nonspecific but could be related to a congenital variant versus parenchymal edema. 3. Elevated postvoid residual volume of 109.8 mL. D/ / 04/16/2017 18:20:58 Crow Kruger MD / neil Interpreting Provider: Crow Kruger MD - VTE Documentation of Mechanical Device: Intermittent pneumatic compression device Consult Discharge Plan - Plan Referrals: NO,PCP [Primary Care Provider] -
[2017-04-17] MEDS: Insulin DETEMIR 100 UNIT/ML X5UNITS SQ SCH (21:04)
[2017-04-18] MEDS: Acetaminophen 325 MG TABLET PO PRN (00:02)
[2017-04-18 05:04] LABS: Basophils % 0.4 %; Eosinophils # 0.1 K/mcL (0.0-0.6); Eosinophils % 1.4 %; Hematocrit 36.8 % (35.3-44.9); Hemoglobin 12.2 g/dL (11.5-15.4); Immature Granulocytes % 0.5 % (0-4); Lymphocytes # 2.4 K/mcL (0.6-4.6); Lymphocytes % 23.5 %; Mean Corpuscular HGB Conc 33.2 g/dL (31.6-35.5); Mean Corpuscular Hemoglobin 27.2 pg (28.0-33.3); Mean Corpuscular Volume 82.1 fL (83.0-100.0); Mean Platelet Volume 9.5 fL (9.4-12.4); Monocytes % 10.3 %; Neutrophils # 6.4 K/mcL (1.6-8.9); Platelet Count 256 K/mcL (140-400); Red Blood Count 4.48 M/mcL (3.82-4.97); Red Cell Distribution Width 12.7 % (11.5-14.5); Segmented Neutrophils % 63.9 %
[2017-04-18 05:19] LABS: Albumin/Globulin Ratio 0.5 (1.1-2.2); Bilirubin,Total 0.4 mg/dL (0.2-1.2); Globulin 4.4 g/dL (2.4-3.5); Potassium 3.6 mEq/L (3.5-4.5); Total Protein 6.4 g/dL (6.0-8.3)
[2017-04-18 05:20] LABS: Calcium 8.3 mg/dL (8.6-10.8)
[2017-04-18] MEDS: Insulin LISPRO 300 UNITS/3 ML VIAL SQ SCH ×4 (07:42→20:35)
[2017-04-18] MEDS: TRESIBA U SQ SCH (07:42)
[2017-04-18] MEDS: Piperacillin/Tazobactam 3.375 GM in D5% in Water (Mini-Bag+) 100 ML IVPB SCH ×2 (07:52→16:52)
[2017-04-18] MEDS: BuPROPion SR (12 HR) 150 MG TABLET PO SCH ×2 (07:52→20:46)
[2017-04-18] MEDS: 0.9 % Sodium Chloride 1,000 ML IVC SCH ×2 (10:11→20:47)
--- NOTE | 2017-04-18 11:59 | Nephrology Progress Note ---
Date of Encounter: 04/18/17 Time of Encounter: 11:58 - Assessment and Plan (1) JIGNESH (acute kidney injury) Current Visit: Yes Status: Acute Patient with multifactorial acute kidney injury likely secondary to vancomycin use as well as contrast-induced nephropathy. She is nonoliguric, but her creatinine continues to rise. I agree with discontinuation of vancomycin and continue with IV hydration. Continue to avoid nephrotoxic agents and adjust medications for renal function. (2) Osteomyelitis Current Visit: Yes Status: Acute Per the primary team Qualifiers: Osteomyelitis type: other acute Osteomyelitis location: foot Laterality: right Qualified Code(s): M86.171 - Other acute osteomyelitis, right ankle and foot (3) Diabetes mellitus Current Visit: Yes Status: Chronic Per the primary team. 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 (5) Hyponatremia Current Visit: Yes Status: Acute Sodium level is back to normal continue to monitor. (6) Vitamin D deficiency Current Visit: Yes Status: Acute Continue ergocalciferol. Monitor calcium levels. Subjective Principal diagnosis: Gangrene of #5 toe, with abscess right foot. Interval history: Patient seen and evaluated. She is sitting up in a chair. She has no complaints. Review of system otherwise is stable and negative. Objective - Vital Signs Vital signs: Vital Signs Temp Pulse Resp BP Pulse Ox 04/18/17 11:18 97.6 F 70 15 130/89 97 04/18/17 07:24 98.3 F 67 15 151/89 98 04/18/17 00:12 97.9 F 73 18 113/76 96 04/17/17 19:50 97.8 F 75 18 117/78 98 04/17/17 14:58 97.6 F 67 18 131/84 98 Intake and Output 04/17/17 04/18/17 04/18/17 23:59 07:59 15:59 Intake Total 1750 / 1750 900 / 900 1460 / 1460 Balance 1750 / 1750 900 / 900 1460 / 1460 Intake: IV Fluids 1100 / 1100 100 / 100 1100 / 1100 0.9 % Sodium Chloride 1, 1000 / 1000 1000 / 1000 000 ML @ 100 mls/hr IVC . Q10H BIBI Rx#:[id number] Zosyn 3.375 GM In 100 / 100 100 / 100 100 / 100 Dextrose 5% (Minibag+) 100 ML 100 ML @ 25 mls/hr IVPB Q8HR BIBI Rx#: [id number] Oral 650 / 650 800 / 800 360 / 360 Other: Meal Dinner Breakfast Percent of Meal Consumed 50% 100% # Voids 1 1 Blood Glucose* 138 87 131 - General Appearance General appearance: Present: well-developed, well-nourished, obese EENT: Present: ATNC Neck: Present: supple Cardiology: Present: regular rate Gastrointestinal: Present: obese Neurologic: Present: alert and oriented x3 Psychiatric: Present: mood/affect appropriate - Lab 04/18/17 04:53 04/18/17 04:53 Most recent lab results Calcium 8.3 mg/dL (8.6-10.8) L 04/18/17 04:53 Urine Creatinine 30 mg/dL 04/16/17 13:27 Urine Sodium < 20.0 mEq/L 04/16/17 13:27 Urine Total Protein 21 mg/dL (1-14) H 04/16/17 13:27 - VTE Documentation of Mechanical Device: Intermittent pneumatic compression device Consult Discharge Plan - Plan Referrals: NO,PCP [Primary Care Provider] -
--- NOTE | 2017-04-18 16:38 | Infectious Disease Consult ---
Date of Encounter: 04/18/17 Time of Encounter: 16:37 Assessment and Plan (1) Severe sepsis Status: Acute Assessment and plan: Patient had 2 sisters criteria on admission plus acute kidney injury (2) Osteomyelitis of toe of right foot Status: Acute Assessment and plan: Causative organism unclear. Gram stain showed gram-positive cocci gram-negative rods and gram-negative diplococci but cultures are cold to be normal skin jorge. Status post aggressive I&D by Dr. Beebe with amputation of the fifth toe on the right on 04/14/17 Patient has been on vancomycin and Zosyn with vancomycin toxicity so it has been held. Status post hardware placement. In the meantime we will continue current antibiotics regimen. Continue to all vancomycin until Vanco trough is around 10-15. Unable to dose antibiotics right now for discharging home even though the patient is eager to go home. I explained to her that we need to know what her creatinine clearance and her kidney function as before I can dose adjust her antibiotics. Duration of treatment probably 6 weeks depending on clinical picture. Will need weekly CBC, BMP, ESR, CRP and vancomycin trough if we decided to go with vancomycin still. Monitor labs and for drug toxicity (3) Gangrene of toe Status: Acute Assessment and plan: no causative organism identified patient denies any trauma states she saw pcp 3 days prior and her feet exam was normal (4) JIGNESH (acute kidney injury) Status: Acute Assessment and plan: Most recent creatinine clearance around 25, will ask pharmacy to change Zosyn dose if CrCl is under 20 (5) Vancomycin adverse reaction Status: Acute Assessment and plan: vancomycin trough got to 47 likely jignesh from vanc toxicity (6) Septic arthritis Status: Suspected Qualifiers: Septic arthritis location: foot Septic arthritis organism: due to unspecified organism Laterality: right Qualified Code(s): M00.9 - Pyogenic arthritis, unspecified (7) Morbid obesity with BMI of 45.0-49.9, adult Status: Chronic (8) Diabetes mellitus Status: Chronic Assessment and plan: Under control, blood sugar is running between 80 and 130 Qualifiers: Diabetes mellitus type: type 2 Diabetes mellitus complication status: with skin complications Diabetes mellitus complication detail: with foot ulcer Diabetes mellitus senior care insulin use: with senior care use Qualified Code(s) : E11.621 - Type 2 diabetes mellitus with foot ulcer; L97.509 - Non-pressure chronic ulcer of other part of unspecified foot with unspecified severity; Z79.4 - custodial (current) use of insulin (9) Tobacco abuse Status: Chronic Assessment and plan: After she needed a nicotine patch and she declined Infectious Disease HPI - Data of Consult Patient: new to practice Consult date: 04/18/17 Requesting Physician: Roberta Murillo MD Primary Care Provider: PCP NO - Consult Narrative Reason for consult: osteomyelitis/septic arthritis History of present illness: Ms. Sellers is a 46 year old female Patient is a 46-year-old woman who was admitted to [facility] on 04/13/2017 complaining of right foot swelling and redness, we are consult to today for osteomyelitis and septic arthritis. Patient is a 46-year-old woman with past medical history mentioned below was sent to the emergency from her PCP office for right foot swelling and redness Since admission patient has been afebrile, he was tachycardic with a heart rate of 104, labs revealed a WBC of 20.2 thousand with 80% neutrophils, ESR over 130 , and a CRP of 348. A CT of the lower extremity done which revealed gas within the fifth distal phalanx compatible with osteomyelitis and a small skin defect planted to lateral and the fifth metatarsal with underlying fluid-filled sinus tract coursing towards the plantar surface of the fifth metatarsal head and extensive soft tissue gas in the fifth digit compatible with necrosis. Small foci of gas possibly within the fifth minute Tarsophalangeal joint space. Patient was taken to surgery by Dr. Beebe on 04/14/17 she underwent I&D of multiple areas of the right foot and open amputation of the fifth toe on the right foot digit. Intra-Op note mentions that there was purulence and all the necrotic tissue was debrided and Intra-Op cultures were sent for aerobic and anaerobic. Gram stain revealed many gram-positive cocci, gram-negative tanya, gram -negative diplococci and gram-positive rods. Cultures no mention no growth and said it was normal skin jorge. Patient was started on empiric vancomycin and Zosyn, patient looks like she had vancomycin toxicity with the Vanco trough of 44 and now patient is in acute kidney injury. Vancomycin was stopped and repeat Vanco level on 04/17/17 still chose Vanco level of 39.4. On further questioning, patient tells me that she just noticed a blister one day prior to admission. And then started bleeding. She also had some fevers of 100.2 at home. Patient denies any rigors denied any chills denied any nausea or vomiting denied any diarrhea or urinary symptoms. Currently patient tells me she has very good urine output and she feels much better than before. A PICC line has been placed in the right upper extremity. CC: Roberta Murillo MD Past Med Surg Social Fam HX - Past Medical History Medical history: diabetes, other Psychiatric history: anxiety, depression - Past Surgical History Surgical History: orthopedic, other (Left knee surgery 2) - Social History Smoking Status: Current every day smoker Packs per day: 0.5 Smokeless Tobacco Status: No Alcohol use: none Drug use: none Infectious Disease-CN:Meds BuPROPion SR (12 HR) [Wellbutrin SR] 150 mg PO BID 10/03/15 [History] Metformin [Glucophage] 1,000 mg PO BID 10/03/15 [History] Ergocalciferol (VITAMIN D2) [Vitamin D2] 50,000 unit PO SA 04/13/17 [History] Insulin Degludec [Tresiba Flextouch U-100] 22 unit SQ DAILY 04/13/17 [History] Liraglutide [Victoza 2-Sameer] 1.8 mg SQ DAILY 04/13/17 [History] Spironolactone [Aldactone] 25 mg PO DAILY 04/13/17 [History] hydrOXYzine HCl [Hydroxyzine HCl] 25 - 50 mg PO TID PRN 04/13/17 [History] Allergies No Known Allergies Allergy (Unverified 06/05/15 08:07) Review of systems: 10 point review of systems done, negative other for what is mentioned in history of present illness. Exam - Constitutional Vitals: Temp Pulse Resp BP Pulse Ox 97.8 F 70 16 148/95 99 04/18/17 16:29 04/18/17 16:29 04/18/17 16:29 04/18/17 16:29 04/18/17 16:29 General appearance: no acute distress, no febrile Exam: at bedside - Head Head exam: Present: atraumatic, normocephalic - Eye Eye exam: Present: EOMI, PERRL, sclera anicteric - ENT ENT exam: Present: mucous membranes moist Additional comments: No oral thrush, poor dentition. - Neck Neck exam: Present: full ROM, normal inspection - Respiratory Respiratory exam: Present: CTAB. Absent: wheezes - Cardiovascular Cardiovascular exam: Present: RRR, +S1, +S2. Absent: systolic murmur - GI/Abdominal GI/Abdominal exam: Present: normal bowel sounds, soft. Absent: tenderness - Extremities Exam Additional comments: Right foot surgically wrapped with a wound VAC placed. Left foot with adequate perfusion no signs of infection. Power glide right upper extremity noted - Neurological Exam Neurological exam: Present: alert, oriented X3. Absent: speech deficit - Skin Additional comments: Patient has what appears to be like a facial rash. No other rash noted. Infectious Disease CN: Results - Labs CBC & Chem 7: 04/18/17 04:53 04/18/17 04:53 Cultures: Cultures 04/14/17 14:57 Wound Culture - Final Right Foot Normal skin jorge. No apparent pathogens isolated. 04/14/17 14:57 Gram Stain - Final Right Foot Serology: Serology 04/16/17 04/16/17 04/16/17 Range/Units 13:27 13:27 13:27 Urine Color Yellow (Yellow) Urine Clarity Cloudy A (Clear) Urine pH 6.0 (5.0-8.0) pH Units Ur Specific [place] 1.007 L (1.010-1.025) Urine Protein Trace (Neg-Trace) mg/dL Urine Glucose (UA) Normal (Normal) mg/dL Urine Ketones Negative (Negative) mg/dL Urine Blood Small H (Negative) Urine Nitrite Negative (Negative) Urine Bilirubin Negative (Negative) Urine Urobilinogen Normal (Normal) mg/dL Ur Leukocyte Esterase Negative (Negative) Urine Microscopic RBC 0-3 (0-3) per hpf Urine Microscopic WBC 3-5 H (0-3) per hpf Ur Eosinophil Smear 0 (None Seen) % Ur Squamous Epith Cells Few (None-Few) per lpf Urine Bacteria Many H (None-Few) per hpf Hyaline Casts Test Not Performed Ur Culture Indicated? NO (NO) Urine Osmolality 83 L (300-1090) mOsm/kg Urine Creatinine 30 mg/dL Urine Microalbumin 96 mg/L Microalb/Creat Ratio 320 H (0-30) Protein/Creatinin Ratio 0.70 H (0-0.20) mg/mg Urine Sodium < 20.0 mEq/L Urine Total Protein 21 H (1-14) mg/dL - VTE Documentation of Mechanical Device: Intermittent pneumatic compression device Consult Discharge Plan - Plan Referrals: NO,PCP [Primary Care Provider] -
--- NOTE | 2017-04-18 17:58 | Internal Med Progress Note ---
Date of Encounter: 04/18/17 Time of Encounter: 17:56 - Assessment and plan (1) Gangrene Current Visit: Yes Status: Acute (2) Osteomyelitis of toe of right foot Current Visit: Yes Status: Acute (3) Diabetes mellitus Current Visit: Yes Status: Chronic Qualifiers: Diabetes mellitus type: type 2 Diabetes mellitus complication status: with skin complications Diabetes mellitus complication detail: with foot ulcer Diabetes mellitus long-term insulin use: with long term care social worker use Qualified Code(s) : E11.621 - Type 2 diabetes mellitus with foot ulcer; L97.509 - Non-pressure chronic ulcer of other part of unspecified foot with unspecified severity; Z79.4 - penitentiary (current) use of insulin (4) Septic arthritis Current Visit: Yes Status: Suspected Qualifiers: Septic arthritis location: foot Septic arthritis organism: due to unspecified organism Laterality: right Qualified Code(s): M00.9 - Pyogenic arthritis, unspecified (5) Morbid obesity with BMI of 45.0-49.9, adult Current Visit: No Status: Chronic (6) JIGNESH (acute kidney injury) Current Visit: Yes Status: Acute - Subjective Interval history: Miss Linda Engel 46-year-old female came in with foot pain which is diagnosed with osteomyelitis of right fifth metatarsal bone as well as deep infection of first phalangeal bone showing gas. As she came in her white count was elevated as well as her heart rate was up and she was diagnosed with SIRS. She has been started on vancomycin and Zosyn and podiatry's consulted who has taken her to OR. Her potassium was low which is supplemented. Follow-up CBC CMP and CRP will be checked on daily basis. Hemoglobin is borderline at around 9.3. Podiatry has been able to clean out all tissue and had partial resection of fifth and first toe and wound VAC is on no. Patient is on vanc and Zosyn and admitting diagnosis was septic arthritis. In such case she might need IV antibiotics for 4-6 weeks. We will order a PICC line. 04/15 patient was seen today. Her vitals and lab work including CBC and CMP are satisfactory. Cultures are negative to this point. Potassium is corrected. Patient is sitting in chair feels comfortable. As noted above she is on IV vancomycin and Zosyn for partial amputation of her foot due to diabetic ulcer and gangrene. Her sugars are reasonably controlled. A PICC line will be placed after which she will be planned to be sent to ECF provided podiatry is finished with the debridement and wound care. 04/16 patient is asymptomatic. However her creatinine has been rising. We have stopped her vancomycin and metformin and consulted nephrology. IV hydration is started. Concern is that this could be drug induced versus sepsis versus IV contrast dye induced. Electrolytes are corrected. Patient is a still on Zosyn and podiatry has put a wound VAC which is working okay. Plan to put the PICC line before discharging to ECF. 04/17 patient is asymptomatic. Her creatinine is still rising and nephrology is on the case. She is on vancomycin 04/19 asymptomatic. Creatinine is still rising and nephrology is managing it. Cultures showed VRE and infectious diseases is managing it. In computer did not find VRE report. She is on IV Zosyn. She has a PICC line in her right hand. - Constitutional Vitals: Temp Pulse Resp BP Pulse Ox 97.8 F 70 16 148/95 99 04/18/17 16:29 04/18/17 16:29 04/18/17 16:29 04/18/17 16:29 04/18/17 16:57 - Head Head exam: Present: atraumatic, normocephalic - Eye Eye exam: Present: PERRL, conjuntiva pink, sclera anicteric Pupils: Present: PERRL - Neck Neck exam general surgery: Present: supple, trachea midline. Absent: lymphadenopathy - Respiratory Respiratory exam: Present: CTAB. Absent: accessory muscle use, rales, rhonchi, wheezes - Cardiovascular Cardiovascular exam: Present: RRR, +S1, +S2. Absent: diastolic murmur, gallop, rubs, systolic murmur - GI/Abdominal GI/Abdominal exam: Present: normal bowel sounds, soft, no peritoneal signs. Absent: distended, tenderness - Extremities Exam Extremities exam: Present: warm, radial pulses palpable and symetrical. Absent : calf tenderness, cyanotic, pedal edema Additional comments: Detail examination per morning caregiver - Neurological Exam Neurological exam: Present: CN II-XII intact, oriented X3, no focal deficits. Absent: pronater drift, facial droop, speech deficit - Skin Skin exam: Present: dry, intact Internal Medicine: Result - Labs CBC & Chem 7: 04/18/17 04:53 04/18/17 04:53 Labs: Short CBC 04/18/17 Range/Units 04:53 WBC 10.0 (4.3-11.1) K/mcL Hgb 12.2 (11.5-15.4) g/dL Hct 36.8 (35.3-44.9) % Plt Count 256 (140-400) K/mcL Neutrophils # 6.4 (1.6-8.9) K/mcL BMP 04/18/17 04:53 Sodium 138 Potassium 3.6 Chloride 105 Carbon Dioxide 22 BUN 19 Creatinine 3.79 H Glucose 96 Calcium 8.3 L Liver Function 04/18/17 Range/Units 04:53 Total Bilirubin 0.4 (0.2-1.2) mg/dL AST 12 (5-34) Units/L ALT 10 (0-55) Units/L Alkaline Phosphatase 79 (38-126) Units/L Albumin 2.0 L (3.5-5.0) g/dL - Impressions Impressions Retroperitoneum Ultrasound 04/16/17 11:43 IMPRESSION: 1. No evidence of hydronephrosis. 2. Asymmetric enlargement of the right kidney, which is nonspecific but could be related to a congenital variant versus parenchymal edema. 3. Elevated postvoid residual volume of 109.8 mL. D/ / 04/16/2017 18:20:58 Crow Kruger MD / neil Interpreting Provider: Crow Kruger MD - VTE Documentation of Mechanical Device: Intermittent pneumatic compression device Consult Discharge Plan - Plan Referrals: NO,PCP [Primary Care Provider] -
[2017-04-18] MEDS: Insulin DETEMIR 100 UNIT/ML X5UNITS SQ SCH (20:46)
[2017-04-19] MEDS: Piperacillin/Tazobactam 3.375 GM in D5% in Water (Mini-Bag+) 100 ML IVPB SCH ×3 (00:54→21:22)
[2017-04-19 03:45] LABS: Basophils % 0.3 %; Eosinophils # 0.1 K/mcL (0.0-0.6); Eosinophils % 0.9 %; Hematocrit 38.6 % (35.3-44.9); Immature Granulocytes % 0.4 % (0-4); Lymphocytes # 2.2 K/mcL (0.6-4.6); Lymphocytes % 18.6 %; Mean Corpuscular HGB Conc 33.7 g/dL (31.6-35.5); Mean Corpuscular Hemoglobin 27.5 pg (28.0-33.3); Mean Corpuscular Volume 81.8 fL (83.0-100.0); Mean Platelet Volume 9.4 fL (9.4-12.4); Monocytes # 1.1 K/mcL (0.0-1.3); Monocytes % 9.5 %; Neutrophils # 8.3 K/mcL (1.6-8.9); Platelet Count 280 K/mcL (140-400); Red Blood Count 4.72 M/mcL (3.82-4.97); Red Cell Distribution Width 12.8 % (11.5-14.5); Segmented Neutrophils % 70.3 %
[2017-04-19 03:58] LABS: Albumin 2.2 g/dL (3.5-5.0); Albumin/Globulin Ratio 0.5 (1.1-2.2); Bilirubin,Total 0.5 mg/dL (0.2-1.2); Calcium 8.5 mg/dL (8.6-10.8); Globulin 4.8 g/dL (2.4-3.5); Potassium 3.9 mEq/L (3.5-4.5)
[2017-04-19] MEDS: 0.9 % Sodium Chloride 1,000 ML IVC SCH ×2 (07:05→09:31)
[2017-04-19] MEDS: Insulin LISPRO 300 UNITS/3 ML VIAL SQ SCH ×4 (08:10→21:22)
[2017-04-19] MEDS: BuPROPion SR (12 HR) 150 MG TABLET PO SCH ×2 (09:27→21:26)
[2017-04-19] MEDS: TRESIBA U SQ SCH (09:31)
--- NOTE | 2017-04-19 11:20 | Nephrology Progress Note ---
Date of Encounter: 04/19/17 Time of Encounter: 11:18 - Assessment and Plan (1) JIGNESH (acute kidney injury) Current Visit: Yes Status: Acute Patient with multifactorial acute kidney injury likely secondary to vancomycin use as well as contrast-induced nephropathy. She is nonoliguric, but her creatinine continues to rise. I agree with discontinuation of vancomycin and continue with IV hydration. Continue to avoid nephrotoxic agents and adjust medications for renal function. Need accurate urine output. (2) Osteomyelitis Current Visit: Yes Status: Acute Per the primary team. Infectious disease following. Qualifiers: Osteomyelitis type: other acute Osteomyelitis location: foot Laterality: right Qualified Code(s): M86.171 - Other acute osteomyelitis, right ankle and foot (3) Diabetes mellitus Current Visit: Yes Status: Chronic Per the primary team. Qualifiers: Diabetes mellitus type: type 2 Diabetes mellitus complication status: with skin complications Diabetes mellitus complication detail: with foot ulcer Diabetes mellitus security supervisor insulin use: with security supervisor use Qualified Code(s) : E11.621 - Type 2 diabetes mellitus with foot ulcer; L97.509 - Non-pressure chronic ulcer of other part of unspecified foot with unspecified severity; Z79.4 - precipitate washer (current) use of insulin (4) Morbid obesity with BMI of 45.0-49.9, adult Current Visit: No Status: Chronic Outpatient management. (5) Hyponatremia Current Visit: Yes Status: Acute Sodium level is back to normal continue to monitor. (6) Vitamin D deficiency Current Visit: Yes Status: Acute Continue ergocalciferol. Monitor calcium levels. Subjective Principal diagnosis: Gangrene of #5 toe, with abscess right foot. Interval history: Patient seen and evaluated. She is sitting up on the edge of the bed. She has no complaints. Review of system otherwise is stable and negative. Objective - Vital Signs Vital signs: Vital Signs Temp Pulse Resp BP Pulse Ox 04/19/17 10:57 97.5 F L 71 16 135/98 98 04/19/17 06:42 97.7 F 72 14 134/84 98 04/19/17 00:14 97.9 F 75 18 122/76 97 04/18/17 20:33 98.4 F 64 18 134/86 96 04/18/17 16:57 99 04/18/17 16:29 97.8 F 70 16 148/95 99 Intake and Output 04/18/17 04/19/17 04/19/17 23:59 07:59 15:59 Intake Total 1645 / 1645 1500 / 1500 720 / 720 Balance 1645 / 1645 1500 / 1500 720 / 720 Intake: IV Fluids 1100 / 1100 1100 / 1100 0.9 % Sodium Chloride 1, 1000 / 1000 1000 / 1000 000 ML @ 100 mls/hr IVC . Q10H BIBI Rx#:[id number] Zosyn 3.375 GM In 100 / 100 100 / 100 Dextrose 5% (Minibag+) 100 ML 100 ML @ 25 mls/hr IVPB Q8HR BIBI Rx#: [id number] Oral 545 / 545 400 / 400 720 / 720 Other: Meal Dinner Breakfast Percent of Meal Consumed 75% 30% # Voids 1 1 Blood Glucose* 136 96 129 - General Appearance General appearance: Present: well-developed, well-nourished, obese EENT: Present: ATNC Additional Comments: Respirations are not labored Cardiology: Present: regular rate Gastrointestinal: Present: obese Neurologic: Present: alert and oriented x3 Psychiatric: Present: mood/affect appropriate - Lab 04/19/17 03:33 04/19/17 03:33 Most recent lab results Calcium 8.5 mg/dL (8.6-10.8) L 04/19/17 03:33 Urine Creatinine 30 mg/dL 04/16/17 13:27 Urine Sodium < 20.0 mEq/L 04/16/17 13:27 Urine Total Protein 21 mg/dL (1-14) H 04/16/17 13:27 - VTE Documentation of Mechanical Device: Intermittent pneumatic compression device Consult Discharge Plan - Plan Referrals: NO,PCP [Primary Care Provider] -
--- NOTE | 2017-04-19 15:26 | Infectious Disease Progress No ---
Date of Encounter: 04/19/17 Time of Encounter: 15:23 - Assessment and Plan (1) Severe sepsis Current Visit: Yes Status: Acute The patient had 2 SIRS criteria on admission. Likely secondary to right foot fifth toe OM. Improved. Leukocytosis has resolved. Tachycardia has resolved. Blood cultures drawn 04/13/17 are negative. (2) Osteomyelitis of toe of right foot Current Visit: Yes Status: Acute Causative organism unclear. Gram stain showed gram-positive cocci gram-negative rods and gram-negative diplococci but cultures are cold to be normal skin jorge. Anaerobic cultures are positive. CT of the right foot showed gas within the 5th distal phalanx compatible with OM. Patient was started on IV antibiotics before cultures were obtained. Status post aggressive I&D by Dr. Beebe with amputation of the fifth toe on the right on 04/14/17 with wound vac placement. Podiatry continues to follow. Discontinue Vancomycin. Continue Zosyn 3.375 grams IV, dose-adjust to Q12H for decreased CrCl. Discussed dosing with Raymon OneillD. Continue to monitor renal function and dose-adjust antibiotics. Duration of treatment probably 6 weeks depending on clinical picture. PICC line placed. (3) Gangrene of toe Current Visit: Yes Status: Acute (4) Septic arthritis Current Visit: Yes Status: Suspected Qualifiers: Septic arthritis location: foot Septic arthritis organism: due to unspecified organism Laterality: right Qualified Code(s): M00.9 - Pyogenic arthritis, unspecified (5) JIGNESH (acute kidney injury) Current Visit: Yes Status: Acute Serum creatinine continues to worsen. Likely secondary to contrast-induced nephropathy and vanc toxicity. Nephrology consulted and following. Continue to trend. Dose-adjust antibiotics and avoid nephrotoxins as able. (6) Vancomycin adverse reaction Current Visit: Yes Status: Acute Vanc toxicity likely secondary to JIGNESH. Continue to trend levels. Will discontinue Vancomycin since no MRSA isolated on culture. Qualifiers: Encounter type: initial encounter Qualified Code(s): T36.8X5A - Adverse effect of other systemic antibiotics, initial encounter (7) Tobacco abuse Current Visit: Yes Status: Chronic (8) Diabetes mellitus Current Visit: Yes Status: Chronic Uncontrolled. HgbA1C 9.3. Recommend aggressive glucose monitoring and control to promote wound healing and prevent re-infection. Qualifiers: Diabetes mellitus type: type 2 Diabetes mellitus complication status: with skin complications Diabetes mellitus complication detail: with foot ulcer Diabetes mellitus adjunct faculty for medical terminology insulin use: with adjunct faculty for medical terminology use Qualified Code(s) : E11.621 - Type 2 diabetes mellitus with foot ulcer; L97.509 - Non-pressure chronic ulcer of other part of unspecified foot with unspecified severity; Z79.4 - [facility] (current) use of insulin (9) Morbid obesity with BMI of 45.0-49.9, adult Current Visit: No Status: Chronic - Subjective Interval history: Patient seen and examined. No acute events noted overnight. Patient ambulating in the room from the bathroom upon my arrival. She denies any pain at this time. She denies any fevers, chills, nausea, vomiting, diarrhea, or constipation. She denies any chest pain, shortness of breath, or cough. She denies any abdominal pain or appetite changes. She is anxious to go home. She denies any urinary complaints. She denies oral thrush or new skin lesions. Infect Dis PN-Objective Data - Labs CBC & Chem 7: 04/19/17 03:33 04/19/17 03:33 Labs: Laboratory Results - last 24 hr 04/18/17 04/18/17 04/19/17 16:31 20:01 03:33 WBC 11.8 H RBC 4.72 Hgb 13.0 Hct 38.6 MCV 81.8 L MCH 27.5 L MCHC 33.7 RDW 12.8 Plt Count 280 MPV 9.4 Immature Gran % 0.4 Seg Neutrophils % 70.3 Lymphocytes % 18.6 Monocytes % 9.5 Eosinophils % 0.9 Basophils % 0.3 Neutrophils # 8.3 Lymphocytes # 2.2 Monocytes # 1.1 Eosinophils # 0.1 Basophils # 0.0 Sodium Potassium Chloride Carbon Dioxide BUN Creatinine Est GFR ( Amer) Est GFR (Non-Af Amer) BUN/Creatinine Ratio Glucose POC Glucose 128 H 136 H Calculated Osmolality Calcium Total Bilirubin AST ALT Alkaline Phosphatase C-Reactive Protein Serum Total Protein Albumin Globulin Albumin/Globulin Ratio 04/19/17 04/19/17 04/19/17 03:33 07:28 10:59 WBC RBC Hgb Hct MCV MCH MCHC RDW Plt Count MPV Immature Gran % Seg Neutrophils % Lymphocytes % Monocytes % Eosinophils % Basophils % Neutrophils # Lymphocytes # Monocytes # Eosinophils # Basophils # Sodium 139 Potassium 3.9 Chloride 106 Carbon Dioxide 21 BUN 22 H Creatinine 4.10 H Est GFR ( Amer) 14 L Est GFR (Non-Af Amer) 12 L BUN/Creatinine Ratio 5 L Glucose 109 H POC Glucose 96 H 129 H Calculated Osmolality 292 Calcium 8.5 L Total Bilirubin 0.5 AST 17 ALT 15 Alkaline Phosphatase 87 C-Reactive Protein 68 H Serum Total Protein 7.0 Albumin 2.2 L Globulin 4.8 H Albumin/Globulin Ratio 0.5 L Cultures: Cultures 04/14/17 14:57 Wound Culture - Final Right Foot Normal skin jorge. No apparent pathogens isolated. 04/14/17 14:57 Gram Stain - Final Right Foot Serology 04/16/17 04/16/17 04/16/17 Range/Units 13:27 13:27 13:27 Urine Color Yellow (Yellow) Urine Clarity Cloudy A (Clear) Urine pH 6.0 (5.0-8.0) pH Units Ur Specific [place] 1.007 L (1.010-1.025) Urine Protein Trace (Neg-Trace) mg/dL Urine Glucose (UA) Normal (Normal) mg/dL Urine Ketones Negative (Negative) mg/dL Urine Blood Small H (Negative) Urine Nitrite Negative (Negative) Urine Bilirubin Negative (Negative) Urine Urobilinogen Normal (Normal) mg/dL Ur Leukocyte Esterase Negative (Negative) Urine Microscopic RBC 0-3 (0-3) per hpf Urine Microscopic WBC 3-5 H (0-3) per hpf Ur Eosinophil Smear 0 (None Seen) % Ur Squamous Epith Cells Few (None-Few) per lpf Urine Bacteria Many H (None-Few) per hpf Hyaline Casts Test Not Performed Ur Culture Indicated? NO (NO) Urine Osmolality 83 L (300-1090) mOsm/kg Urine Creatinine 30 mg/dL Urine Microalbumin 96 mg/L Microalb/Creat Ratio 320 H (0-30) Protein/Creatinin Ratio 0.70 H (0-0.20) mg/mg Urine Sodium < 20.0 mEq/L Urine Total Protein 21 H (1-14) mg/dL Exam - Constitutional Vitals: Temp Pulse Resp BP Pulse Ox 97.5 F L 71 16 135/98 98 04/19/17 10:57 04/19/17 10:57 04/19/17 10:57 04/19/17 10:57 04/19/17 10:57 General appearance: cooperative, morbidly obese, no acute distress - Head Head exam: Present: atraumatic, normal inspection, normocephalic - Eye Eye exam: Present: EOMI, normal appearance, PERRL Pupils: Present: normal accommodation - ENT ENT exam: Present: mucous membranes moist - Neck Neck exam: Present: normal inspection - Respiratory Respiratory exam: Present: CTAB. Absent: rales, respiratory distress, rhonchi, wheezes - Cardiovascular Cardiovascular exam: Present: RRR, +S1, +S2 - GI/Abdominal GI/Abdominal exam: Present: distended (Obese), normal bowel sounds, soft. Absent: tenderness - Extremities Exam Extremities exam: Present: normal inspection. Absent: joint swelling, pedal edema, tenderness Additional comments: Postop cast noted to the right lower extremity with wound VAC dressing clean, dry, and intact. Continue suction at 125 mmHg with no leak noted. Small amount of drainage noted in the wound VAC canister - Neurological Exam Neurological exam: Present: alert, oriented X3, no focal deficits - Psychiatric Psychiatric exam: Present: normal affect, normal mood - Skin Skin exam: Present: dry, intact, normal color, warm - VTE Documentation of Mechanical Device: Intermittent pneumatic compression device Consult Discharge Plan - Plan Referrals: NO,PCP [Primary Care Provider] - - Attending Attestation I examined this patient and my medical decision-making was reviewed with the DREDGE PIPE OPERATOR/PA/Advanced Practice Nurse/Resident Physician. I agree with the documented findings, disposition and treatment plan as described except to the extent set forth below.
--- NOTE | 2017-04-19 17:18 | Podiatry Progress Note ---
Date of Encounter: 04/20/17 Time of Encounter: 12:00 - Assessment and Plan (1) Osteomyelitis of toe of right foot Current Visit: Yes Status: Acute Assessed at bedside, patient awake alert and oriented and agreeable with plan. Patient has been NPO since midnight receiving vancomycin and zosyn IV antibiotic coverage. Admit WBC 21 Plan: Amputation of 5th digit, I&D and cultures of right foot per today 04/14/17 Surgical consent on chart, patient denies any questions Patient has been unable to void for required screen for surgical clearance. Ordered serum blood screen a this time. Will obtain cultures in surgery, continue current antibiotic coverage until culture results have returned 04/15/17 s/p amputation of toe #5 right foot. Wound vac intact and running without issue. To stay in place until tuesday. Change MWF Awaiting surgical cultures to return which will determine appropriate antibiotic coverage Patient to be weight bearing only to heel- will have post op shoe in room for patient to use while ambulating Continue Vancomycin and Zosyn coverage at this time. WBC trending down Call with any issues or concerns Spoke with patient extensively at bedside about tight glucose control to promote healing. Diet restrictions regarding carbs and sugar discussed. Verbalized understanding 04/19/2017 Wound vac removed at bedside Skin prep and betadine applied for drying Wound bed cleansed with saline Sharp debridement of devitalized macerated skin at bedside using #15 blade, patient tolerated well, no complications White simplace sponge placed to bed of open surgical wound to prevent adherence to bone Black simplace placed to top and tracked outward to top of foot. Skin protected with tegaderm Sealed sponges in place- placed vac to 150mmHg cont suction good seal Replaced kerlex and YOANTHAN wraps MWF changes- start tuesday SW for discharge with VAC If patient remains inpatient on , may consider OR for wound closure and graft jacket placement. Will determine based on clinical picture Call with any changes or issues Continue antibiotic management per ID Continue renal management per nephrology Patient will need to follow up in wound care on tuesday after discharge with (2) Diabetes mellitus Current Visit: Yes Status: Chronic Continue medical management Qualifiers: Diabetes mellitus type: type 2 Diabetes mellitus complication status: with skin complications Diabetes mellitus complication detail: with foot ulcer Diabetes mellitus intermodal dispatcher insulin use: with [facility] use Qualified Code(s) : E11.621 - Type 2 diabetes mellitus with foot ulcer; L97.509 - Non-pressure chronic ulcer of other part of unspecified foot with unspecified severity; Z79.4 - vermin exterminator (current) use of insulin (3) Osteomyelitis Current Visit: Yes Status: Acute Qualifiers: Osteomyelitis type: other acute Osteomyelitis location: foot Laterality: right Qualified Code(s): M86.171 - Other acute osteomyelitis, right ankle and foot Subjective Principal diagnosis: Gangrene of #5 toe, with abscess right foot. Interval history: 04/14/17 Ms. Sellers is a 46 year old female who arrived to [facility] last night with complaints of discoloration to right foot toe #5. Patient states that she noticed 2-3 days ago it was a little dark. States that yesterday she noticed it was really dark, she was having some pain to the toe and states she had a "little fever" Patient denies any known trauma to toe but states she walks barefoot everywhere or wears thin open toed slippers. Patient has hx of diabetes mellitus which she states has been poorly controlled. Patient was evaluated in ED and admitted with osteomyelitis of the 5th digit with gas noted to CT and presence of necrosis of toe. was contacted over night, patient was made NPO and plan for surgical intervention today. Patient resting comfortably on arrival to room. Patient states she has some pain to the toe at this time. Patient denies any fevers, chills, n/v or flu like symptoms at this time. Patient denies any calf pain. Patient awaiting surgery, denies any questions. 04/15/17 Patient underwent I&D and amputation of toe #5 of right digit on 04/14/[address] Beebe. Upon entering room patient is sitting up in chair eating a cheeseburger and fries. Patient denies any pain at this time. Patient states she feels ok. Patient denies any fevers, chills, n/v or flu like symptoms. Patient denies any calf pain. Wound vac intact and running without issue. 04/19/2017 Patient resting comfortably. Wound vac in place and running without issue. Vac was changed Tuesday per . YONATHAN wrap in place for swelling to RLE. Patient remains inpatient due to elevated creatine. Continues to trend upwards. Being managed per nephrology. Patient denies any pain at this time. Denies any fevers chills n/v or flu like symptoms Objective - Vital Signs Vital Signs: Vital Signs Temp Pulse Resp BP Pulse Ox 04/19/17 15:28 98.1 F 66 20 164/101 99 04/19/17 10:57 97.5 F L 71 16 135/98 98 04/19/17 06:42 97.7 F 72 14 134/84 98 04/19/17 00:14 97.9 F 75 18 122/76 97 04/18/17 20:33 98.4 F 64 18 134/86 96 Intake and Output 04/19/17 04/19/17 04/19/17 07:59 15:59 23:59 Intake Total 1500 / 1500 840 / 840 Output Total 1700 / 1700 0 / 0 Balance 1500 / 1500 -860 / -860 0 / 0 Intake: IV Fluids 1100 / 1100 0.9 % Sodium Chloride 1, 1000 / 1000 000 ML @ 100 mls/hr IVC . Q10H BIBI Rx#:[id number] Zosyn 3.375 GM In 100 / 100 Dextrose 5% (Minibag+) 100 ML 100 ML @ 25 mls/hr IVPB Q8HR BIBI Rx#: [id number] Oral 400 / 400 840 / 840 Output: Urine 1700 / 1700 Wound Drainage 0 / 0 Right Foot 0 / 0 Right Toe - 5th Digit 0 / 0 Other: Meal Lunch Percent of Meal Consumed 50% # Voids 1 Blood Glucose* 96 129 100 - Exam Exam: Edema and erythema decreased. Minimal erythema noted Wound vac removed to assess wound Open wound to lateral right foot. Surgical line with sutures noted and intact. Wound noted to plantar aspect, sub MT head #5 right foot Large amount of maceration surrounds plantar surgical line and pressure wound Wound beds clean, no purulent drainage or ischemic tissue Healthy granulation tissue noted to wound bed Palpable joint to open wound bed Painted macerated skin with betadine and skin prep to assist in drying 100ml bloody drainage to wound vac canister Pulses palpable DP and PT Edema +1/4 Cap refill <3 seconds Movement intact Sensation intact to light touch Warm toes to tibia Dark fluid filled bulla noted to calf of right leg most likely from gross edema of leg that is now decreasing due to YONATHAN. Bulla intact. - Lab Result Diagrams: 04/19/17 03:33 04/19/17 03:33 Labs: Abnormal lab results WBC 11.8 K/mcL (4.3-11.1) H 04/19/17 03:33 MCV 81.8 fL (83.0-100.0) L 04/19/17 03:33 MCH 27.5 pg (28.0-33.3) L 04/19/17 03:33 Reactive Lymphocytes Present (Not Present) A 04/17/17 03:20 ESR >= 130 mm/hr (0-15) H 04/13/17 18:00 BUN 22 mg/dL (7-20) H 04/19/17 03:33 Creatinine 4.10 mg/dL (0.57-1.11) H 04/19/17 03:33 Est GFR ( Amer) 14 (> 60) L 04/19/17 03:33 Est GFR (Non-Af Amer) 12 (> 60) L 04/19/17 03:33 BUN/Creatinine Ratio 5 (6-26) L 04/19/17 03:33 Glucose 109 mg/dL (70-99) H 04/19/17 03:33 POC Glucose 129 (58-89) H 04/19/17 10:59 Hemoglobin A1c 9.3 % (-5.6) H 04/14/17 05:02 Calcium 8.5 mg/dL (8.6-10.8) L 04/19/17 03:33 C-Reactive Protein 68 mg/L (Less than 5) H 04/19/17 03:33 Albumin 2.2 g/dL (3.5-5.0) L 04/19/17 03:33 Globulin 4.8 g/dL (2.4-3.5) H 04/19/17 03:33 Albumin/Globulin Ratio 0.5 (1.1-2.2) L 04/19/17 03:33 Urine Clarity Cloudy (Clear) A 04/16/17 13:27 Ur Specific [place] 1.007 (1.010-1.025) L 04/16/17 13:27 Urine Blood Small (Negative) H 04/16/17 13:27 Urine Microscopic WBC 3-5 per hpf (0-3) H 04/16/17 13:27 Urine Bacteria Many per hpf (None-Few) H 04/16/17 13:27 Urine Osmolality 83 mOsm/kg (300-1090) L 04/16/17 13:27 Microalb/Creat Ratio 320 (0-30) H 04/16/17 13:27 Protein/Creatinin Ratio 0.70 mg/mg (0-0.20) H 04/16/17 13:27 Urine Total Protein 21 mg/dL (1-14) H 04/16/17 13:27 Vancomycin Trough 39.4 mcg/mL (10-20) H* 04/17/17 11:15 - VTE Documentation of Mechanical Device: Intermittent pneumatic compression device Consult Discharge Plan - Plan Referrals: NO,PCP [Primary Care Provider] -
--- NOTE | 2017-04-19 19:17 | Internal Med Progress Note ---
Date of Encounter: 04/19/17 Time of Encounter: 13:14 - Assessment and plan (1) Osteomyelitis of toe of right foot Current Visit: Yes Status: Acute Assessment and plan: Continue with IV Zosyn. Avoid vancomycin due to worsening DORI. Consider Zyvox if additional gram-positive coverage for adjustment necessary. Follow-up culture and sensitivity. Follow-up ESR and CRP outpatient. (2) Diabetes mellitus Current Visit: Yes Status: Chronic Assessment and plan: Insulin sliding scale. Qualifiers: Diabetes mellitus type: type 2 Diabetes mellitus complication status: with skin complications Diabetes mellitus complication detail: with foot ulcer Diabetes mellitus shelter insulin use: with superintendent terminal use Qualified Code(s) : E11.621 - Type 2 diabetes mellitus with foot ulcer; L97.509 - Non-pressure chronic ulcer of other part of unspecified foot with unspecified severity; Z79.4 - skilled nursing (current) use of insulin (3) Morbid obesity with BMI of 45.0-49.9, adult Current Visit: No Status: Chronic (4) Tobacco abuse Current Visit: Yes Status: Chronic Assessment and plan: We will provide nicotine replacement therapy during this hospitalization. (5) JIGNESH (acute kidney injury) Current Visit: Yes Status: Acute Assessment and plan: Worsening acute kidney injury, creatinine increased from yesterday. Likely secondary to multifactorial including vancomycin which was stopped and metformin which was also stopped. Continue treatment with IV fluids. Avoid nephrotoxins. Monitor kidney function. I appreciate nephrology input. - Subjective Interval history: 04/19/2017: Patient presented for evaluation of toe gangrene. She reports mild dull tenderness with ambulation located and her right foot, 0 pain at rest. - Constitutional Vitals: Temp Pulse Resp BP Pulse Ox 98.1 F 66 20 164/101 99 04/19/17 15:28 04/19/17 15:28 04/19/17 15:28 04/19/17 15:28 04/19/17 15:28 General appearance: Present: A&O X 3 - Eye Eye exam: Present: PERRL, conjuntiva pink, sclera anicteric Pupils: Present: PERRL - Respiratory Respiratory exam: Present: CTAB. Absent: accessory muscle use, rales, rhonchi, wheezes - Cardiovascular Cardiovascular exam: Present: RRR, +S1, +S2. Absent: diastolic murmur, gallop, rubs, systolic murmur - GI/Abdominal GI/Abdominal exam: Present: normal bowel sounds, soft, no peritoneal signs. Absent: distended, tenderness - Extremities Exam Extremities exam: Present: warm, radial pulses palpable and symetrical. Absent : calf tenderness, cyanotic, pedal edema - Skin Skin exam: Present: dry, intact Internal Medicine: Result - Labs CBC & Chem 7: 04/19/17 03:33 04/19/17 03:33 Labs: Short CBC 04/19/17 Range/Units 03:33 WBC 11.8 H (4.3-11.1) K/mcL Hgb 13.0 (11.5-15.4) g/dL Hct 38.6 (35.3-44.9) % Plt Count 280 (140-400) K/mcL Neutrophils # 8.3 (1.6-8.9) K/mcL BMP 04/19/17 03:33 Sodium 139 Potassium 3.9 Chloride 106 Carbon Dioxide 21 BUN 22 H Creatinine 4.10 H Glucose 109 H Calcium 8.5 L Liver Function 04/19/17 Range/Units 03:33 Total Bilirubin 0.5 (0.2-1.2) mg/dL AST 17 (5-34) Units/L ALT 15 (0-55) Units/L Alkaline Phosphatase 87 (38-126) Units/L Albumin 2.2 L (3.5-5.0) g/dL - VTE Documentation of Mechanical Device: Intermittent pneumatic compression device Consult Discharge Plan - Plan Referrals: NO,PCP [Primary Care Provider] -
[2017-04-19] MEDS: Insulin DETEMIR 100 UNIT/ML X5UNITS SQ SCH (21:23)
[2017-04-20] MEDS: Insulin LISPRO 300 UNITS/3 ML VIAL SQ SCH ×4 (08:02→20:20)
[2017-04-20] MEDS: TRESIBA U SQ SCH (08:04)
[2017-04-20] MEDS: Piperacillin/Tazobactam 3.375 GM in D5% in Water (Mini-Bag+) 100 ML IVPB SCH ×2 (09:55→20:19)
[2017-04-20] MEDS: BuPROPion SR (12 HR) 150 MG TABLET PO SCH ×2 (09:55→20:21)
[2017-04-20 10:20] LABS: Basophils % 0.3 %; Eosinophils # 0.1 K/mcL (0.0-0.6); Hemoglobin 12.8 g/dL (11.5-15.4); Immature Granulocytes % 0.6 % (0-4); Lymphocytes # 1.5 K/mcL (0.6-4.6); Mean Corpuscular HGB Conc 33.7 g/dL (31.6-35.5); Mean Corpuscular Hemoglobin 27.6 pg (28.0-33.3); Mean Corpuscular Volume 82.1 fL (83.0-100.0); Mean Platelet Volume 9.4 fL (9.4-12.4); Monocytes # 0.8 K/mcL (0.0-1.3); Monocytes % 7.2 %; Platelet Count 275 K/mcL (140-400); Red Blood Count 4.63 M/mcL (3.82-4.97); Red Cell Distribution Width 13.1 % (11.5-14.5); Segmented Neutrophils % 76.9 %
--- NOTE | 2017-04-20 10:28 | Podiatry Progress Note ---
Date of Encounter: 04/20/17 Time of Encounter: 08:30 - Assessment and Plan (1) Osteomyelitis of toe of right foot Current Visit: Yes Status: Acute Assessed at bedside, patient awake alert and oriented and agreeable with plan. Patient has been NPO since midnight receiving vancomycin and zosyn IV antibiotic coverage. Admit WBC 21 Plan: Amputation of 5th digit, I&D and cultures of right foot per today 04/14/17 Surgical consent on chart, patient denies any questions Patient has been unable to void for required screen for surgical clearance. Ordered serum blood screen a this time. Will obtain cultures in surgery, continue current antibiotic coverage until culture results have returned 04/15/17 s/p amputation of toe #5 right foot. Wound vac intact and running without issue. To stay in place until tuesday. Change MWF Awaiting surgical cultures to return which will determine appropriate antibiotic coverage Patient to be weight bearing only to heel- will have post op shoe in room for patient to use while ambulating Continue Vancomycin and Zosyn coverage at this time. WBC trending down Call with any issues or concerns Spoke with patient extensively at bedside about tight glucose control to promote healing. Diet restrictions regarding carbs and sugar discussed. Verbalized understanding 04/19/2017 Wound vac removed at bedside Skin prep and betadine applied for drying Wound bed cleansed with saline Sharp debridement of devitalized macerated skin at bedside using #15 blade, patient tolerated well, no complications White simplace sponge placed to bed of open surgical wound to prevent adherence to bone Black simplace placed to top and tracked outward to top of foot. Skin protected with tegaderm Sealed sponges in place- placed vac to 150mmHg cont suction good seal Replaced kerlex and YONATHAN wraps MWF changes- start tuesday SW for discharge with VAC If patient remains inpatient on , may consider OR for wound closure and graft jacket placement. Will determine based on clinical picture Call with any changes or issues Continue antibiotic management per ID Continue renal management per nephrology Patient will need to follow up in wound care on tuesday after discharge with 04/20/17 Continue current treatment with VAC No labs were ordered for today, orders given for CBC and chem 7 to chaitanya HAY on If patient remains inpatient will consider return to OR tomorrow If labs allow for patient to go home, may be discharged with VAC and will follow up outpatient in wound care clinic with on Tuesday of next week Antibiotic coverage per ID recommendations Patient to go home with post operative shoe Patient states she is ambulating well with walker. 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 Interval history: 04/14/17 Ms. Sellers is a 46 year old female who arrived to [facility] last night with complaints of discoloration to right foot toe #5. Patient states that she noticed 2-3 days ago it was a little dark. States that yesterday she noticed it was really dark, she was having some pain to the toe and states she had a "little fever" Patient denies any known trauma to toe but states she walks barefoot everywhere or wears thin open toed slippers. Patient has hx of diabetes mellitus which she states has been poorly controlled. Patient was evaluated in ED and admitted with osteomyelitis of the 5th digit with gas noted to CT and presence of necrosis of toe. was contacted over night, patient was made NPO and plan for surgical intervention today. Patient resting comfortably on arrival to room. Patient states she has some pain to the toe at this time. Patient denies any fevers, chills, n/v or flu like symptoms at this time. Patient denies any calf pain. Patient awaiting surgery, denies any questions. 04/15/17 Patient underwent I&D and amputation of toe #5 of right digit on 04/14/[address] Beebe. Upon entering room patient is sitting up in chair eating a cheeseburger and fries. Patient denies any pain at this time. Patient states she feels ok. Patient denies any fevers, chills, n/v or flu like symptoms. Patient denies any calf pain. Wound vac intact and running without issue. 04/19/2017 Patient resting comfortably. Wound vac in place and running without issue. Vac was changed Tuesday per . YONATHAN wrap in place for swelling to RLE. Patient remains inpatient due to elevated creatine. Continues to trend upwards. Being managed per nephrology. Patient denies any pain at this time. Denies any fevers chills n/v or flu like symptoms 04/20/17 Patient resting comfortably in bed. Wound vac in place and running without issue. Patient states she is feeling good. States she slept well last night for the first time. Rates pain 3/10. Patient denies any fevers, chills, n/ v or flu like symptoms Objective - Vital Signs Vital Signs: Vital Signs Temp Pulse Resp BP Pulse Ox 04/20/17 07:18 97.5 F L 68 16 135/87 98 04/20/17 00:19 97.9 F 75 16 143/90 99 04/19/17 19:42 98.6 F 110 16 124/85 94 04/19/17 15:28 98.1 F 66 20 164/101 99 04/19/17 10:57 97.5 F L 71 16 135/98 98 Intake and Output 04/19/17 04/20/17 04/20/17 23:59 07:59 15:59 Intake Total 240 / 240 375 / 375 540 / 540 Output Total 400 / 400 1050 / 1050 800 / 800 Balance -160 / -160 -675 / -675 -260 / -260 Intake: IV Fluids 100 / 100 Zosyn 3.375 GM In 100 / 100 Dextrose 5% (Minibag+) 100 ML 100 ML @ 25 mls/hr IVPB Q12H [facility] Rx#: [id number] Oral 240 / 240 375 / 375 440 / 440 Output: Urine 300 / 300 1050 / 1050 800 / 800 Wound Drainage 100 / 100 0 / 0 Right Foot 100 / 100 0 / 0 Right Toe - 5th Digit 0 / 0 Other: Meal Dinner Breakfast Percent of Meal Consumed 50% 90% Stool Characteristics Normal for Patient # Bowel Movements 1 Blood Glucose* 170 86 - Exam Exam: Wound vac intact and running- leave in place for today Wrapped in kerlex and YONATHAN Toes warm, cap refill <3 seconds, sensation to moderate touch, movement intact No calf pain with manual compression No drainage to wound vac canister - Lab Result Diagrams: 04/20/17 10:00 04/19/17 03:33 Labs: Abnormal lab results MCV 82.1 fL (83.0-100.0) L 04/20/17 10:00 MCH 27.6 pg (28.0-33.3) L 04/20/17 10:00 Reactive Lymphocytes Present (Not Present) A 04/17/17 03:20 ESR >= 130 mm/hr (0-15) H 04/13/17 18:00 BUN 22 mg/dL (7-20) H 04/19/17 03:33 Creatinine 4.10 mg/dL (0.57-1.11) H 04/19/17 03:33 Est GFR ( Amer) 14 (> 60) L 04/19/17 03:33 Est GFR (Non-Af Amer) 12 (> 60) L 04/19/17 03:33 BUN/Creatinine Ratio 5 (6-26) L 04/19/17 03:33 Glucose 109 mg/dL (70-99) H 04/19/17 03:33 Hemoglobin A1c 9.3 % (-5.6) H 04/14/17 05:02 Calcium 8.5 mg/dL (8.6-10.8) L 04/19/17 03:33 C-Reactive Protein 68 mg/L (Less than 5) H 04/19/17 03:33 Albumin 2.2 g/dL (3.5-5.0) L 04/19/17 03:33 Globulin 4.8 g/dL (2.4-3.5) H 04/19/17 03:33 Albumin/Globulin Ratio 0.5 (1.1-2.2) L 04/19/17 03:33 Urine Clarity Cloudy (Clear) A 04/16/17 13:27 Ur Specific [place] 1.007 (1.010-1.025) L 04/16/17 13:27 Urine Blood Small (Negative) H 04/16/17 13:27 Urine Microscopic WBC 3-5 per hpf (0-3) H 04/16/17 13:27 Urine Bacteria Many per hpf (None-Few) H 04/16/17 13:27 Urine Osmolality 83 mOsm/kg (300-1090) L 04/16/17 13:27 Microalb/Creat Ratio 320 (0-30) H 04/16/17 13:27 Protein/Creatinin Ratio 0.70 mg/mg (0-0.20) H 04/16/17 13:27 Urine Total Protein 21 mg/dL (1-14) H 04/16/17 13:27 Vancomycin Trough 39.4 mcg/mL (10-20) H* 04/17/17 11:15 Microbiology, Last 48 Hours 04/14/17 14:57 Anaerobic Culture - Final Right Foot Anaerobic Gram Negative Cocci Anaerobic Gram Negative Chito 04/14/17 14:57 Gram Stain - Final Right Foot - VTE Documentation of Mechanical Device: Intermittent pneumatic compression device Consult Discharge Plan - Plan Referrals: NO,PCP [Primary Care Provider] -
[2017-04-20 10:36] LABS: Calcium 8.3 mg/dL (8.6-10.8)
--- NOTE | 2017-04-20 10:52 | Nephrology Progress Note ---
Date of Encounter: 04/20/17 Time of Encounter: 10:50 - Assessment and Plan (1) JIGNESH (acute kidney injury) Current Visit: Yes Status: Acute Patient with multifactorial acute kidney injury likely secondary to vancomycin use as well as contrast-induced nephropathy. She is nonoliguric. Her creatinine is at a plateau. Hopeful for renal recovery. I agree with discontinuation of vancomycin and continue with IV hydration. Continue to avoid nephrotoxic agents and adjust medications for renal function. Need accurate urine output. (2) Osteomyelitis Current Visit: Yes Status: Acute Per the primary team. Infectious disease following. Qualifiers: Osteomyelitis type: other acute Osteomyelitis location: foot Laterality: right Qualified Code(s): M86.171 - Other acute osteomyelitis, right ankle and foot (3) Diabetes mellitus Current Visit: Yes Status: Chronic Per the primary team. 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 (5) Hyponatremia Current Visit: Yes Status: Acute Sodium level is back to normal continue to monitor. (6) Vitamin D deficiency Current Visit: Yes Status: Acute Continue ergocalciferol. Monitor calcium levels. Subjective Principal diagnosis: Gangrene of #5 toe, with abscess right foot. Interval history: Patient seen She is sitting up on the edge of the bed. Objective - Vital Signs Vital signs: Vital Signs Temp Pulse Resp BP Pulse Ox 04/20/17 07:18 97.5 F L 68 16 135/87 98 04/20/17 00:19 97.9 F 75 16 143/90 99 04/19/17 19:42 98.6 F 110 16 124/85 94 04/19/17 15:28 98.1 F 66 20 164/101 99 04/19/17 10:57 97.5 F L 71 16 135/98 98 Intake and Output 04/19/17 04/20/17 04/20/17 23:59 07:59 15:59 Intake Total 240 / 240 375 / 375 540 / 540 Output Total 400 / 400 1050 / 1050 800 / 800 Balance -160 / -160 -675 / -675 -260 / -260 Intake: IV Fluids 100 / 100 Zosyn 3.375 GM In 100 / 100 Dextrose 5% (Minibag+) 100 ML 100 ML @ 25 mls/hr IVPB Q12H [facility] Rx#: [id number] Oral 240 / 240 375 / 375 440 / 440 Output: Urine 300 / 300 1050 / 1050 800 / 800 Wound Drainage 100 / 100 0 / 0 Right Foot 100 / 100 0 / 0 Right Toe - 5th Digit 0 / 0 Other: Meal Dinner Breakfast Percent of Meal Consumed 50% 90% Stool Characteristics Normal for Patient # Bowel Movements 1 Blood Glucose* 170 86 - General Appearance General appearance: Present: well-developed, well-nourished, obese EENT: Present: ATNC Neck: Present: supple Additional Comments: respirations are unlabored. Cardiology: Present: regular rate Neurologic: Present: alert and oriented x3 - Lab 04/20/17 10:00 04/20/17 10:14 Most recent lab results Calcium 8.3 mg/dL (8.6-10.8) L 04/20/17 10:14 Urine Creatinine 30 mg/dL 04/16/17 13:27 Urine Sodium < 20.0 mEq/L 04/16/17 13:27 Urine Total Protein 21 mg/dL (1-14) H 04/16/17 13:27 - VTE Documentation of Mechanical Device: Intermittent pneumatic compression device Consult Discharge Plan - Plan Referrals: NO,PCP [Primary Care Provider] -
--- NOTE | 2017-04-20 11:09 | Infectious Disease Progress No ---
Date of Encounter: 04/20/17 Time of Encounter: 11:07 - Assessment and Plan (1) Severe sepsis Current Visit: Yes Status: Acute The patient had 2 SIRS criteria on admission. Likely secondary to right foot fifth toe OM. Improved. Leukocytosis has resolved. Tachycardia has resolved. Blood cultures drawn 04/13/17 are negative. (2) Osteomyelitis of toe of right foot Current Visit: Yes Status: Acute Causative organism unclear. Gram stain showed gram-positive cocci gram-negative rods and gram-negative diplococci but cultures are called normal skin jorge. Anaerobic cultures are positive in both the swab and intra-operative cultures. CT of the right foot showed gas within the 5th distal phalanx compatible with OM. Patient was started on IV antibiotics before cultures were obtained. Status post aggressive I&D by Dr. Beebe with amputation of the fifth toe on the right on 04/14/17 with wound vac placement. Podiatry continues to follow. Continue Zosyn 3.375 grams IV, dose-adjust to Q12H for decreased CrCl for now. Continue to monitor renal function and dose-adjust antibiotics. Duration of treatment probably 6 weeks depending on clinical picture. PICC line placed. (3) Gangrene of toe Current Visit: Yes Status: Acute (4) Septic arthritis Current Visit: Yes Status: Suspected Qualifiers: Septic arthritis location: foot Septic arthritis organism: due to unspecified organism Laterality: right Qualified Code(s): M00.9 - Pyogenic arthritis, unspecified (5) JIGNESH (acute kidney injury) Current Visit: Yes Status: Acute Serum creatinine appears to have reached plateau. Urine output remains adequate. Likely secondary to contrast-induced nephropathy and vanc toxicity. Nephrology consulted and following. Continue to trend. Dose-adjust antibiotics and avoid nephrotoxins as able. (6) Vancomycin adverse reaction Current Visit: Yes Status: Acute Vanc toxicity likely secondary to JIGNESH. Continue to trend levels. Qualifiers: Encounter type: initial encounter Qualified Code(s): T36.8X5A - Adverse effect of other systemic antibiotics, initial encounter (7) Tobacco abuse Current Visit: Yes Status: Chronic (8) Diabetes mellitus Current Visit: Yes Status: Chronic Uncontrolled. HgbA1C 9.3. Recommend aggressive glucose monitoring and control to promote wound healing and prevent re-infection. Qualifiers: Diabetes mellitus type: type 2 Diabetes mellitus complication status: with skin complications Diabetes mellitus complication detail: with foot ulcer Diabetes mellitus rn long term care insulin use: with fdc use Qualified Code(s) : E11.621 - Type 2 diabetes mellitus with foot ulcer; L97.509 - Non-pressure chronic ulcer of other part of unspecified foot with unspecified severity; Z79.4 - rn long term care (current) use of insulin (9) Morbid obesity with BMI of 45.0-49.9, adult Current Visit: No Status: Chronic - Subjective Interval history: Patient seen and examined. No acute events noted overnight. Patient sitting up on the side of the bed upon my entrance into the room. She denies any pain at this time. She denies any fevers, chills, nausea, vomiting, diarrhea, or constipation. She denies any chest pain, shortness of breath, or cough. She denies any abdominal pain or appetite changes. She is anxious to go home. She denies any urinary complaints. She denies oral thrush or new skin lesions. Infect Dis PN-Objective Data - Labs CBC & Chem 7: 04/20/17 10:00 04/20/17 10:14 Labs: Laboratory Results - last 24 hr 04/19/17 04/19/17 04/20/17 16:51 19:58 07:22 WBC RBC Hgb Hct MCV MCH MCHC RDW Plt Count MPV Immature Gran % Seg Neutrophils % Lymphocytes % Monocytes % Eosinophils % Basophils % Neutrophils # Lymphocytes # Monocytes # Eosinophils # Basophils # Sodium Potassium Chloride Carbon Dioxide BUN Creatinine Est GFR ( Amer) Est GFR (Non-Af Amer) BUN/Creatinine Ratio Glucose POC Glucose 100 H 170 H 86 Calculated Osmolality Calcium 04/20/17 04/20/17 10:00 10:14 WBC 10.4 RBC 4.63 Hgb 12.8 Hct 38.0 MCV 82.1 L MCH 27.6 L MCHC 33.7 RDW 13.1 Plt Count 275 MPV 9.4 Immature Gran % 0.6 Seg Neutrophils % 76.9 Lymphocytes % 14.0 Monocytes % 7.2 Eosinophils % 1.0 Basophils % 0.3 Neutrophils # 8.0 Lymphocytes # 1.5 Monocytes # 0.8 Eosinophils # 0.1 Basophils # 0.0 Sodium 137 Potassium 4.0 Chloride 107 Carbon Dioxide 21 BUN 22 H Creatinine 4.07 H Est GFR ( Amer) 14 L Est GFR (Non-Af Amer) 12 L BUN/Creatinine Ratio 5 L Glucose 141 H POC Glucose Calculated Osmolality 290 Calcium 8.3 L Cultures: Cultures 04/14/17 14:57 Anaerobic Culture - Final Right Foot Anaerobic Gram Negative Cocci Anaerobic Gram Negative Chito 04/14/17 14:57 Gram Stain - Final Right Foot 04/14/17 14:57 Wound Culture - Final Right Foot Normal skin jorge. No apparent pathogens isolated. Serology 04/16/17 04/16/17 04/16/17 Range/Units 13:27 13:27 13:27 Urine Color Yellow (Yellow) Urine Clarity Cloudy A (Clear) Urine pH 6.0 (5.0-8.0) pH Units Ur Specific [place] 1.007 L (1.010-1.025) Urine Protein Trace (Neg-Trace) mg/dL Urine Glucose (UA) Normal (Normal) mg/dL Urine Ketones Negative (Negative) mg/dL Urine Blood Small H (Negative) Urine Nitrite Negative (Negative) Urine Bilirubin Negative (Negative) Urine Urobilinogen Normal (Normal) mg/dL Ur Leukocyte Esterase Negative (Negative) Urine Microscopic RBC 0-3 (0-3) per hpf Urine Microscopic WBC 3-5 H (0-3) per hpf Ur Eosinophil Smear 0 (None Seen) % Ur Squamous Epith Cells Few (None-Few) per lpf Urine Bacteria Many H (None-Few) per hpf Hyaline Casts Test Not Performed Ur Culture Indicated? NO (NO) Urine Osmolality 83 L (300-1090) mOsm/kg Urine Creatinine 30 mg/dL Urine Microalbumin 96 mg/L Microalb/Creat Ratio 320 H (0-30) Protein/Creatinin Ratio 0.70 H (0-0.20) mg/mg Urine Sodium < 20.0 mEq/L Urine Total Protein 21 H (1-14) mg/dL Exam - Constitutional Vitals: Temp Pulse Resp BP Pulse Ox 97.5 F L 68 16 135/87 98 04/20/17 07:18 04/20/17 07:18 04/20/17 07:18 04/20/17 07:18 04/20/17 07:18 General appearance: cooperative, morbidly obese, no acute distress - Head Head exam: Present: atraumatic, normal inspection, normocephalic - Eye Eye exam: Present: EOMI, normal appearance, PERRL Pupils: Present: normal accommodation - ENT ENT exam: Present: mucous membranes moist - Neck Neck exam: Present: normal inspection - Respiratory Respiratory exam: Present: CTAB. Absent: rales, respiratory distress, rhonchi, wheezes - Cardiovascular Cardiovascular exam: Present: RRR, +S1, +S2 - GI/Abdominal GI/Abdominal exam: Present: distended (Obese), normal bowel sounds, soft. Absent: tenderness - Extremities Exam Extremities exam: Absent: joint swelling, pedal edema, tenderness Additional comments: Right foot wound VAC intact with continuous suction at 125mm Hg. No leak noted. Unable to fully assess due to large, bulky dressing with YONATHAN wraps and Kerlix that is being managed by the podiatry team. - Neurological Exam Neurological exam: Present: alert, oriented X3, no focal deficits - Psychiatric Psychiatric exam: Present: normal affect, normal mood - Skin Skin exam: Present: dry, intact, normal color, warm - Additional findings Additional findings: PICC line noted to the RUE with transparent dressing C/D/I. - VTE Documentation of Mechanical Device: Intermittent pneumatic compression device Consult Discharge Plan - Plan Referrals: NO,PCP [Primary Care Provider] - - Attending Attestation I examined this patient and my medical decision-making was reviewed with the SENIOR CAREGIVER/PA/Advanced Practice Nurse/Resident Physician. I agree with the documented findings, disposition and treatment plan as described except to the extent set forth below.
[2017-04-20] MEDS: 0.9 % Sodium Chloride 1,000 ML IVC SCH (13:58)
--- NOTE | 2017-04-20 19:22 | Internal Med Progress Note ---
Date of Encounter: 04/20/17 Time of Encounter: 13:00 - Assessment and plan (1) Osteomyelitis of toe of right foot Current Visit: Yes Status: Acute Assessment and plan: I have discussed the plan with ID. We will continue with IV Zosyn. Avoid vancomycin due to worsening renal failure. Consider Zyvox if additional gram- positive coverage as necessary. Follow-up culture and sensitivity. Follow-up ESR and CRP outpatient. (2) Diabetes mellitus Current Visit: Yes Status: Chronic Assessment and plan: Insulin sliding scale. Qualifiers: Diabetes mellitus type: type 2 Diabetes mellitus complication status: with skin complications Diabetes mellitus complication detail: with foot ulcer Diabetes mellitus prison insulin use: with head usher use Qualified Code(s) : E11.621 - Type 2 diabetes mellitus with foot ulcer; L97.509 - Non-pressure chronic ulcer of other part of unspecified foot with unspecified severity; Z79.4 - custodial (current) use of insulin (3) Morbid obesity with BMI of 45.0-49.9, adult Current Visit: No Status: Chronic (4) Tobacco abuse Current Visit: Yes Status: Chronic Assessment and plan: We will provide nicotine replacement therapy during this hospitalization. (5) JIGNESH (acute kidney injury) Current Visit: Yes Status: Acute Assessment and plan: 04/20/2017: Creatinine is slightly improved today with IV fluids. Continue gentle hydration. Avoid nephrotoxins. We will monitor kidney function daily. Appreciated nephrology recommendations. 04/19/2017: Worsening acute kidney injury, creatinine increased from yesterday. Likely secondary to multifactorial including vancomycin which was stopped and metformin which was also stopped. Continue treatment with IV fluids. Avoid nephrotoxins. Monitor kidney function. I appreciate nephrology input. - Subjective Interval history: 04/20/2017: Patient presented for evaluation of toe gangrene. She reports mild dull tenderness with ambulation located about her right foot, no pain at rest. - Constitutional Vitals: Temp Pulse Resp BP Pulse Ox 97.6 F 68 16 127/85 98 04/20/17 19:10 04/20/17 19:10 04/20/17 19:10 04/20/17 19:10 04/20/17 19:10 General appearance: Present: A&O X 3 - Respiratory Respiratory exam: Present: CTAB. Absent: accessory muscle use, rales, rhonchi, wheezes - Cardiovascular Cardiovascular exam: Present: RRR, +S1, +S2. Absent: diastolic murmur, gallop, rubs, systolic murmur - GI/Abdominal GI/Abdominal exam: Present: normal bowel sounds, soft, no peritoneal signs. Absent: distended, tenderness - Extremities Exam Extremities exam: Present: warm, radial pulses palpable and symetrical. Absent : calf tenderness, cyanotic, pedal edema Additional comments: Right foot covered with dressing and connected to wound VAC. Internal Medicine: Result - Labs CBC & Chem 7: 04/20/17 10:00 04/20/17 10:14 Labs: Short CBC 04/20/17 Range/Units 10:00 WBC 10.4 (4.3-11.1) K/mcL Hgb 12.8 (11.5-15.4) g/dL Hct 38.0 (35.3-44.9) % Plt Count 275 (140-400) K/mcL Neutrophils # 8.0 (1.6-8.9) K/mcL BMP 04/20/17 10:14 Sodium 137 Potassium 4.0 Chloride 107 Carbon Dioxide 21 BUN 22 H Creatinine 4.07 H Glucose 141 H Calcium 8.3 L - VTE Documentation of Mechanical Device: Intermittent pneumatic compression device Consult Discharge Plan - Plan Referrals: NO,PCP [Primary Care Provider] -
[2017-04-20] MEDS: Insulin DETEMIR 100 UNIT/ML X5UNITS SQ SCH (20:21)
[2017-04-21] MEDS: 0.9 % Sodium Chloride 1,000 ML IVC SCH ×3 (00:26→21:11)
[2017-04-21 05:52] LABS: Basophils % 0.3 %; Eosinophils # 0.2 K/mcL (0.0-0.6); Eosinophils % 1.4 %; Hemoglobin 12.1 g/dL (11.5-15.4); Immature Granulocytes % 0.5 % (0-4); Lymphocytes # 2.2 K/mcL (0.6-4.6); Lymphocytes % 19.6 %; Mean Corpuscular HGB Conc 33.6 g/dL (31.6-35.5); Mean Corpuscular Hemoglobin 27.5 pg (28.0-33.3); Mean Corpuscular Volume 81.8 fL (83.0-100.0); Mean Platelet Volume 9.3 fL (9.4-12.4); Monocytes # 1.1 K/mcL (0.0-1.3); Monocytes % 9.9 %; Neutrophils # 7.5 K/mcL (1.6-8.9); Platelet Count 253 K/mcL (140-400); Red Cell Distribution Width 13.1 % (11.5-14.5); Segmented Neutrophils % 68.3 %
[2017-04-21 06:02] LABS: Calcium 8.3 mg/dL (8.6-10.8)
[2017-04-21] MEDS: Piperacillin/Tazobactam 3.375 GM in D5% in Water (Mini-Bag+) 100 ML IVPB SCH ×2 (07:43→19:55)
[2017-04-21] MEDS: BuPROPion SR (12 HR) 150 MG TABLET PO SCH ×2 (07:44→19:55)
[2017-04-21] MEDS: Insulin LISPRO 300 UNITS/3 ML VIAL SQ SCH ×4 (08:00→21:14)
--- NOTE | 2017-04-21 11:48 | Nephrology Progress Note ---
Date of Encounter: 04/21/17 Time of Encounter: 11:43 - Assessment and Plan (1) JIGNESH (acute kidney injury) Current Visit: Yes Status: Acute Patient with multifactorial acute kidney injury likely secondary to vancomycin use as well as contrast-induced nephropathy. She is nonoliguric. Her creatinine is slowly trending down. Hopeful for renal recovery. I agree with discontinuation of vancomycin and continue with IV hydration. Continue to avoid nephrotoxic agents and adjust medications for renal function. If patient is discharged I recommend; -oral rehydration therapy of 2-3 L of liquid daily for 1 week. -Check a BMP weekly with results sent to her primary care team and to my office. -She should follow-up in my clinic in 4-8 weeks If the above recommendations can be achieved and I am okay with her being discharged. She is instructed that if she cannot tolerate liquids develops nausea vomiting or diarrhea or there are any other concerns she needs to contact her family physician SHWETA, or return to the ER. (2) Osteomyelitis Current Visit: Yes Status: Acute Per the primary team. Infectious disease following. Qualifiers: Osteomyelitis type: other acute Osteomyelitis location: foot Laterality: right Qualified Code(s): M86.171 - Other acute osteomyelitis, right ankle and foot (3) Diabetes mellitus Current Visit: Yes Status: Chronic Per the primary team. Qualifiers: Diabetes mellitus type: type 2 Diabetes mellitus complication status: with skin complications Diabetes mellitus complication detail: with foot ulcer Diabetes mellitus middle or intermediate [employer] principal insulin use: with fpc use Qualified Code(s) : E11.621 - Type 2 diabetes mellitus with foot ulcer; L97.509 - Non-pressure chronic ulcer of other part of unspecified foot with unspecified severity; Z79.4 - terminal operator (current) use of insulin (4) Morbid obesity with BMI of 45.0-49.9, adult Current Visit: No Status: Chronic Outpatient management. (5) Hyponatremia Current Visit: Yes Status: Acute Sodium level is back to normal continue to monitor. (6) Vitamin D deficiency Current Visit: Yes Status: Acute Continue ergocalciferol. Monitor calcium levels. She should have vitamin D 25 hydroxy level drawn 1-2 weeks prior to her renal clinic appointment. Subjective Principal diagnosis: Gangrene of #5 toe, with abscess right foot. Interval history: Patient seen She is sitting up in a chair. Her is at her bedside. She has no new complaint. Objective - Vital Signs Vital signs: Vital Signs Temp Pulse Resp BP Pulse Ox 04/21/17 07:08 98.0 F 76 16 136/84 97 04/21/17 03:49 97.6 F 67 16 135/89 98 04/20/17 23:34 98.4 F 72 18 123/64 99 04/20/17 19:10 97.6 F 68 16 127/85 98 04/20/17 15:02 97.5 F L 70 18 149/92 100 Intake and Output 04/20/17 04/21/17 04/21/17 23:59 07:59 15:59 Intake Total 1100 / 1100 100 / 100 1240 / 1240 Output Total 800 / 800 600 / 600 900 / 900 Balance 300 / 300 -500 / -500 340 / 340 Intake: IV Fluids 1100 / 1100 100 / 100 1000 / 1000 0.9 % Sodium Chloride 1, 1000 / 1000 1000 / 1000 000 ML @ 100 mls/hr IVC . Q10H BIBI Rx#:[id number] Zosyn 3.375 GM In 100 / 100 100 / 100 Dextrose 5% (Minibag+) 100 ML 100 ML @ 25 mls/hr IVPB Q12H BIBI Rx#: [id number] Oral 240 / 240 Output: Urine 800 / 800 600 / 600 900 / 900 Wound Drainage 0 / 0 0 / 0 0 / 0 Right Foot 0 / 0 0 / 0 0 / 0 Right Toe - 5th Digit 0 / 0 Other: Meal Breakfast Percent of Meal Consumed 45% Weight 138.8 kg Blood Glucose* 126 88 Patient Weight 04/21/17 23:59 Weight 138.8 kg - General Appearance General appearance: Present: well-developed, well-nourished, obese EENT: Present: ATNC Neck: Present: supple Additional Comments: Respirations are not labored Cardiology: Present: regular rate Gastrointestinal: Present: obese Neurologic: Present: alert and oriented x3 Psychiatric: Present: mood/affect appropriate - Lab 04/21/17 05:30 04/21/17 05:30 Most recent lab results Calcium 8.3 mg/dL (8.6-10.8) L 04/21/17 05:30 Urine Creatinine 30 mg/dL 04/16/17 13:27 Urine Sodium < 20.0 mEq/L 04/16/17 13:27 Urine Total Protein 21 mg/dL (1-14) H 04/16/17 13:27 - VTE Documentation of Mechanical Device: Intermittent pneumatic compression device Consult Discharge Plan - Plan Referrals: NO,PCP [Primary Care Provider] -
[2017-04-21] MEDS: TRESIBA U SQ SCH (12:10)
--- NOTE | 2017-04-21 17:23 | Infectious Disease Progress No ---
Date of Encounter: 04/21/17 Time of Encounter: 17:20 - Assessment and Plan (1) Severe sepsis Current Visit: Yes Status: Acute The patient had 2 SIRS criteria on admission. Likely secondary to right foot fifth toe OM. Improved. Leukocytosis has resolved. Tachycardia has resolved. Blood cultures drawn 04/13/17 are negative. (2) Osteomyelitis of toe of right foot Current Visit: Yes Status: Acute No obvious osteomyelitis on imaging. Status at length with Dr. Beebe who thinks is just a necrotic toe with no osteomyelitis. He feels that the bone was pristine. Based on these findings and clinical judgment we decided to with oral antibiotics. We'll treat with Augmentin 500 mg by mouth twice a day. (Based on her creatinine clearance). Patient is going to follow-up with Dr. Beebe, if clinically thinks change we might have to reconsider doing IV antibiotics. May remove PICC line Prescription written (3) Gangrene of toe Current Visit: Yes Status: Acute (4) Septic arthritis Current Visit: Yes Status: Suspected Qualifiers: Septic arthritis location: foot Septic arthritis organism: due to unspecified organism Laterality: right Qualified Code(s): M00.9 - Pyogenic arthritis, unspecified (5) JIGNESH (acute kidney injury) Current Visit: Yes Status: Acute Serum creatinine appears to have reached plateau. Urine output remains adequate. Likely secondary to contrast-induced nephropathy and vanc toxicity. Nephrology consulted and following. Continue to trend. Dose-adjust antibiotics and avoid nephrotoxins as able. (6) Vancomycin adverse reaction Current Visit: Yes Status: Acute Vanc toxicity likely secondary to JIGNESH. Continue to trend levels. Qualifiers: Encounter type: initial encounter Qualified Code(s): T36.8X5A - Adverse effect of other systemic antibiotics, initial encounter (7) Tobacco abuse Current Visit: Yes Status: Chronic (8) Diabetes mellitus Current Visit: Yes Status: Chronic Uncontrolled. HgbA1C 9.3. Recommend aggressive glucose monitoring and control to promote wound healing and prevent re-infection. Qualifiers: Diabetes mellitus type: type 2 Diabetes mellitus complication status: with skin complications Diabetes mellitus complication detail: with foot ulcer Diabetes mellitus [facility] insulin use: with exterminator helper termite use Qualified Code(s) : E11.621 - Type 2 diabetes mellitus with foot ulcer; L97.509 - Non-pressure chronic ulcer of other part of unspecified foot with unspecified severity; Z79.4 - jail (current) use of insulin (9) Morbid obesity with BMI of 45.0-49.9, adult Current Visit: No Status: Chronic - Subjective Interval history: Patient seen and examined. Doing great clinically. Denies any headache no chest pain or shortness of breath no nausea vomiting or diarrhea no urinary symptoms. Infect Dis PN-Objective Data - Labs CBC & Chem 7: 04/21/17 05:30 04/21/17 05:30 Labs: Laboratory Results - last 24 hr 04/20/17 04/20/17 04/21/17 16:41 20:16 05:30 WBC RBC Hgb Hct MCV MCH MCHC RDW Plt Count MPV Immature Gran % Seg Neutrophils % Lymphocytes % Monocytes % Eosinophils % Basophils % Neutrophils # Lymphocytes # Monocytes # Eosinophils # Basophils # Sodium 139 Potassium 4.0 Chloride 109 Carbon Dioxide 23 BUN 22 H Creatinine 4.00 H Est GFR ( Amer) 15 L Est GFR (Non-Af Amer) 12 L BUN/Creatinine Ratio 6 Glucose 87 POC Glucose 79 126 H Calculated Osmolality 291 Calcium 8.3 L Random Vancomycin 04/21/17 04/21/17 04/21/17 05:30 05:30 07:11 WBC 11.0 RBC 4.40 Hgb 12.1 Hct 36.0 MCV 81.8 L MCH 27.5 L MCHC 33.6 RDW 13.1 Plt Count 253 MPV 9.3 L Immature Gran % 0.5 Seg Neutrophils % 68.3 Lymphocytes % 19.6 Monocytes % 9.9 Eosinophils % 1.4 Basophils % 0.3 Neutrophils # 7.5 Lymphocytes # 2.2 Monocytes # 1.1 Eosinophils # 0.2 Basophils # 0.0 Sodium Potassium Chloride Carbon Dioxide BUN Creatinine Est GFR ( Amer) Est GFR (Non-Af Amer) BUN/Creatinine Ratio Glucose POC Glucose 88 Calculated Osmolality Calcium Random Vancomycin 19.0 04/21/17 11:57 WBC RBC Hgb Hct MCV MCH MCHC RDW Plt Count MPV Immature Gran % Seg Neutrophils % Lymphocytes % Monocytes % Eosinophils % Basophils % Neutrophils # Lymphocytes # Monocytes # Eosinophils # Basophils # Sodium Potassium Chloride Carbon Dioxide BUN Creatinine Est GFR ( Amer) Est GFR (Non-Af Amer) BUN/Creatinine Ratio Glucose POC Glucose 167 H Calculated Osmolality Calcium Random Vancomycin Cultures: Cultures 04/14/17 14:57 Anaerobic Culture - Final Right Foot Anaerobic Gram Negative Cocci Anaerobic Gram Negative [place] 04/14/17 14:57 Gram Stain - Final Right Foot 04/14/17 14:57 Wound Culture - Final Right Foot Normal skin jorge. No apparent pathogens isolated. Serology 04/16/17 04/16/17 04/16/17 Range/Units 13:27 13:27 13:27 Urine Color Yellow (Yellow) Urine Clarity Cloudy A (Clear) Urine pH 6.0 (5.0-8.0) pH Units Ur Specific [place] 1.007 L (1.010-1.025) Urine Protein Trace (Neg-Trace) mg/dL Urine Glucose (UA) Normal (Normal) mg/dL Urine Ketones Negative (Negative) mg/dL Urine Blood Small H (Negative) Urine Nitrite Negative (Negative) Urine Bilirubin Negative (Negative) Urine Urobilinogen Normal (Normal) mg/dL Ur Leukocyte Esterase Negative (Negative) Urine Microscopic RBC 0-3 (0-3) per hpf Urine Microscopic WBC 3-5 H (0-3) per hpf Ur Eosinophil Smear 0 (None Seen) % Ur Squamous Epith Cells Few (None-Few) per lpf Urine Bacteria Many H (None-Few) per hpf Hyaline Casts Test Not Performed Ur Culture Indicated? NO (NO) Urine Osmolality 83 L (300-1090) mOsm/kg Urine Creatinine 30 mg/dL Urine Microalbumin 96 mg/L Microalb/Creat Ratio 320 H (0-30) Protein/Creatinin Ratio 0.70 H (0-0.20) mg/mg Urine Sodium < 20.0 mEq/L Urine Total Protein 21 H (1-14) mg/dL Exam - Constitutional Vitals: Temp Pulse Resp BP Pulse Ox 97.6 F 65 16 161/96 98 04/21/17 16:30 04/21/17 16:30 04/21/17 16:30 04/21/17 16:30 04/21/17 16:30 General appearance: no febrile, no no acute distress - Respiratory Respiratory exam: Present: CTAB. Absent: wheezes - Cardiovascular Cardiovascular exam: Present: RRR, +S1, +S2 - GI/Abdominal GI/Abdominal exam: Present: soft. Absent: tenderness - Extremities Exam Extremities exam: Present: normal inspection Additional comments: Foot surgically wrapped. - VTE Documentation of Mechanical Device: Intermittent pneumatic compression device Consult Discharge Plan - Plan Referrals: NO,PCP [Primary Care Provider] -
[2017-04-21] MEDS: Insulin DETEMIR 100 UNIT/ML X5UNITS SQ SCH (19:55)
--- NOTE | 2017-04-21 21:02 | Internal Med Progress Note ---
Date of Encounter: 04/21/17 Time of Encounter: 16:00 - Assessment and plan (1) Osteomyelitis of toe of right foot Current Visit: Yes Status: Acute Assessment and plan: 04/21/2017: We will continue treatment with IV Zosyn. Consider switching to oral upon discharge. Continue with wound VAC per podiatry. Follow up with ID outpatient. 04/20/2017: I have discussed the plan with ID. We will continue with IV Zosyn. Avoid vancomycin due to worsening renal failure. Consider Zyvox if additional gram-positive coverage as necessary. Follow-up culture and sensitivity. Follow-up ESR and CRP outpatient. (2) Diabetes mellitus Current Visit: Yes Status: Chronic Assessment and plan: Insulin sliding scale. Qualifiers: Diabetes mellitus type: type 2 Diabetes mellitus complication status: with skin complications Diabetes mellitus complication detail: with foot ulcer Diabetes mellitus custodial insulin use: with watermaster use Qualified Code(s) : E11.621 - Type 2 diabetes mellitus with foot ulcer; L97.509 - Non-pressure chronic ulcer of other part of unspecified foot with unspecified severity; Z79.4 - halfway (current) use of insulin (3) Morbid obesity with BMI of 45.0-49.9, adult Current Visit: No Status: Chronic Assessment and plan: Outpatient weight loss regimen and lifestyle changes. (4) Tobacco abuse Current Visit: Yes Status: Chronic Assessment and plan: I provided smoking cessation counseling. She is willing to try to quit smoking upon discharge. We will provide nicotine replacement therapy during this hospitalization. (5) JIGNESH (acute kidney injury) Current Visit: Yes Status: Acute Assessment and plan: 04/21/2017: Creatinine is 4.0 today. Continue with gentle IV fluid hydration. Follow-up with nephrology. Avoid nephrotoxins. 04/20/2017: Creatinine is slightly improved today with IV fluids. Continue gentle hydration. Avoid nephrotoxins. We will monitor kidney function daily. Appreciated nephrology recommendations. 04/19/2017: Worsening acute kidney injury, creatinine increased from yesterday. Likely secondary to multifactorial including vancomycin which was stopped and metformin which was also stopped. Continue treatment with IV fluids. Avoid nephrotoxins. Monitor kidney function. I appreciate nephrology input. - Subjective Interval history: 04/21/2017: Patient is status post amputation of the right fifth toe. Continue to report no pain in her right leg, no fevers chills. 04/20/2017: Patient presented for evaluation of toe gangrene. She reports mild dull tenderness with ambulation located about her right foot, no pain at rest. - Constitutional Vitals: Temp Pulse Resp BP Pulse Ox 97.8 F 67 18 134/85 98 04/21/17 19:57 04/21/17 19:57 04/21/17 19:57 04/21/17 19:57 04/21/17 19:57 General appearance: Present: A&O X 3 - Respiratory Respiratory exam: Present: CTAB. Absent: accessory muscle use, rales, rhonchi, wheezes - Cardiovascular Cardiovascular exam: Present: RRR, +S1, +S2. Absent: diastolic murmur, gallop, rubs, systolic murmur - GI/Abdominal GI/Abdominal exam: Present: normal bowel sounds, soft, no peritoneal signs. Absent: distended, tenderness - Extremities Exam Extremities exam: Present: warm, radial pulses palpable and symetrical. Absent : calf tenderness, cyanotic, pedal edema Additional comments: Right foot covered in dressing and connected to a wound VAC - Skin Skin exam: Present: dry, intact Internal Medicine: Result - Labs CBC & Chem 7: 04/21/17 05:30 04/21/17 05:30 Labs: Short CBC 04/21/17 Range/Units 05:30 WBC 11.0 (4.3-11.1) K/mcL Hgb 12.1 (11.5-15.4) g/dL Hct 36.0 (35.3-44.9) % Plt Count 253 (140-400) K/mcL Neutrophils # 7.5 (1.6-8.9) K/mcL BMP 04/21/17 05:30 Sodium 139 Potassium 4.0 Chloride 109 Carbon Dioxide 23 BUN 22 H Creatinine 4.00 H Glucose 87 Calcium 8.3 L - VTE Documentation of Mechanical Device: Intermittent pneumatic compression device Consult Discharge Plan - Plan Referrals: NO,PCP [Primary Care Provider] -
[2017-04-22 06:37] LABS: Basophils # 0.1 K/mcL (0.0-0.2); Basophils % 0.4 %; Eosinophils # 0.2 K/mcL (0.0-0.6); Eosinophils % 1.2 %; Hematocrit 36.1 % (35.3-44.9); Hemoglobin 12.3 g/dL (11.5-15.4); Immature Granulocytes % 0.5 % (0-4); Lymphocytes # 2.2 K/mcL (0.6-4.6); Lymphocytes % 17.7 %; Mean Corpuscular HGB Conc 34.1 g/dL (31.6-35.5); Mean Corpuscular Hemoglobin 28.1 pg (28.0-33.3); Mean Corpuscular Volume 82.4 fL (83.0-100.0); Mean Platelet Volume 9.3 fL (9.4-12.4); Monocytes % 8.4 %; Neutrophils # 8.8 K/mcL (1.6-8.9); Platelet Count 279 K/mcL (140-400); Red Blood Count 4.38 M/mcL (3.82-4.97); Red Cell Distribution Width 13.2 % (11.5-14.5); Segmented Neutrophils % 71.8 %
[2017-04-22 06:43] LABS: Calcium 8.4 mg/dL (8.6-10.8); Potassium 4.1 mEq/L (3.5-4.5)
[2017-04-22] MEDS: Insulin LISPRO 300 UNITS/3 ML VIAL SQ SCH ×2 (08:15→12:21)
[2017-04-22] MEDS: Piperacillin/Tazobactam 3.375 GM in D5% in Water (Mini-Bag+) 100 ML IVPB SCH (08:16)
[2017-04-22] MEDS: BuPROPion SR (12 HR) 150 MG TABLET PO SCH (08:16)
[2017-04-22] MEDS: TRESIBA U SQ SCH (08:17)
--- NOTE | 2017-04-22 08:30 | Nephrology Progress Note ---
Date of Encounter: 04/22/17 Time of Encounter: 09:20 - Assessment and Plan (1) JIGNESH (acute kidney injury) Status: Acute Slowly improving, Non-oliguric JIGNESH with suspected multifactorial etiology including vancomycin use as well as contrast-induced nephropathy plus sepsis/ infection from her toe wound. Often Vanco when given with Zosyn carries a potentially higher nephrotoxic risk. Not uremic and no severe acidosis or fluid overload, so no urgent indications for starting CIS COORDINATOR at this time. Caution with any concomitant nephrotoxins at this time to help encourage renal recovery. She already has follow up plans with my colleague Dr. Britt. No uremic symptoms so acceptable for discharge, but I counseled the pt and her to be sure to have the weekly renal function tests performed. (2) Osteomyelitis Status: Acute As per primary Qualifiers: Osteomyelitis type: other acute Osteomyelitis location: foot Laterality: right Qualified Code(s): M86.171 - Other acute osteomyelitis, right ankle and foot Subjective Principal diagnosis: Gangrene of #5 toe, with abscess right foot. Interval history: Pt was s/e while she was on the 3NE unit. She was sitting in the bedside chair. She did not affirm N/V/D, diminished appetite or other uremic symptoms. She said she already has lab orders in place for monitoring of her renal labs and plans to follow up in the clinic with my colleague Dr. Britt. Her was present and updated as well. He had questions about the wound vac and I directed him to the pt's Floor RN. Objective - Vital Signs Vital signs: Vital Signs Temp Pulse Resp BP Pulse Ox 04/22/17 07:13 98.0 F 66 16 142/90 100 04/21/17 23:09 97.4 F L 69 18 138/84 98 04/21/17 19:57 97.8 F 67 18 134/85 98 04/21/17 16:30 97.6 F 65 16 161/96 98 04/21/17 11:54 97.5 F L 63 16 146/94 99 Intake and Output 04/21/17 04/22/17 04/22/17 23:59 07:59 15:59 Intake Total 1100 / 1100 Output Total 900 / 900 1360 / 1360 Balance 200 / 200 -1360 / -1360 Intake: IV Fluids 1100 / 1100 0.9 % Sodium Chloride 1, 1000 / 1000 000 ML @ 100 mls/hr IVC . Q10H BIBI Rx#:[id number] Zosyn 3.375 GM In 100 / 100 Dextrose 5% (Minibag+) 100 ML 100 ML @ 25 mls/hr IVPB Q12H BIBI Rx#: [id number] Output: Urine 900 / 900 1350 / 1350 Wound Drainage Right Foot Other: Blood Glucose* 135 108 - General Appearance General appearance: Present: well-developed, well-nourished, appears started age , obese EENT: Present: ATNC, PERRL, mucous membranes moist Neck: Present: supple Respiratory: Present: clear Cardiology: Present: edema (LLE trace LE edema), regular rate, regular rhythm, normal S1, normal S2 Gastrointestinal: Present: normoactive bowel sounds, no tenderness Additional Comments: Right foot wound wrapped with a wound vac Neurologic: Present: no focal deficit, no asterixis, alert and oriented x3 Musculoskeletal: Present: no deformities, no erythema, no cyanosis Psychiatric: Present: mood/affect appropriate, cooperative - Lab 04/22/17 06:10 04/22/17 06:10 Most recent lab results Calcium 8.4 mg/dL (8.6-10.8) L 04/22/17 06:10 Urine Creatinine 30 mg/dL 04/16/17 13:27 Urine Sodium < 20.0 mEq/L 04/16/17 13:27 Urine Total Protein 21 mg/dL (1-14) H 04/16/17 13:27 - VTE Documentation of Mechanical Device: Intermittent pneumatic compression device Consult Discharge Plan - Plan Instructions: Amoxicillin/Clavulanate Potassium (By mouth), Wound Infection (DC ), Negative Pressure Wound Therapy (DC) Additional Instructions: Stop metformin and spironolactone. Keep well hydrated. Avoid use of nonsteroidal anti-inflammatory drugs at all costs. If you have severe diarrhea please call your doctor right away. Referrals: Yassine Britt MD [Partnered Physician] - 05/23/17 10:00 am Gil Beebe DPM [Partnered Physician] - 04/27/17 2:15 pm (Wound clinic) Bennie Root DO [Partnered Physician] - NO,PCP [Primary Care Provider] - (patient given referral number) Stanley Gama MD [Partnered Physician] - (Office to call with appointment date and time.) Prescriptions: Amoxicillin/Clavulanate [Augmentin] 500 mg PO BIDWM #28 tablet
[2017-04-22] MEDS: 0.9 % Sodium Chloride 1,000 ML IVC SCH (08:57)
[2017-04-22 11:43] VITALS: BP 136/90
--- NOTE | 2017-04-22 13:07 | Podiatry Progress Note ---
Date of Encounter: 04/22/17 Time of Encounter: 11:30 - Assessment and Plan (1) Osteomyelitis of toe of right foot Current Visit: Yes Status: Acute Assessed at bedside, patient awake alert and oriented and agreeable with plan. Patient has been NPO since midnight receiving vancomycin and zosyn IV antibiotic coverage. Admit WBC 21 Plan: Amputation of 5th digit, I&D and cultures of right foot per today 04/14/17 Surgical consent on chart, patient denies any questions Patient has been unable to void for required screen for surgical clearance. Ordered serum blood screen a this time. Will obtain cultures in surgery, continue current antibiotic coverage until culture results have returned 04/15/17 s/p amputation of toe #5 right foot. Wound vac intact and running without issue. To stay in place until tuesday. Change MWF Awaiting surgical cultures to return which will determine appropriate antibiotic coverage Patient to be weight bearing only to heel- will have post op shoe in room for patient to use while ambulating Continue Vancomycin and Zosyn coverage at this time. WBC trending down Call with any issues or concerns Spoke with patient extensively at bedside about tight glucose control to promote healing. Diet restrictions regarding carbs and sugar discussed. Verbalized understanding 04/19/2017 Wound vac removed at bedside Skin prep and betadine applied for drying Wound bed cleansed with saline Sharp debridement of devitalized macerated skin at bedside using #15 blade, patient tolerated well, no complications White simplace sponge placed to bed of open surgical wound to prevent adherence to bone Black simplace placed to top and tracked outward to top of foot. Skin protected with tegaderm Sealed sponges in place- placed vac to 150mmHg cont suction good seal Replaced kerlex and YONATHAN wraps MWF changes- start tuesday SW for discharge with VAC If patient remains inpatient on , may consider OR for wound closure and graft jacket placement. Will determine based on clinical picture Call with any changes or issues Continue antibiotic management per ID Continue renal management per nephrology Patient will need to follow up in wound care on tuesday after discharge with 04/20/17 Continue current treatment with VAC No labs were ordered for today, orders given for CBC and chem 7 to chaitanya HAY on If patient remains inpatient will consider return to OR tomorrow If labs allow for patient to go home, may be discharged with VAC and will follow up outpatient in wound care clinic with on Tuesday of next week Antibiotic coverage per ID recommendations Patient to go home with post operative shoe Patient states she is ambulating well with walker. Patient denies any needs or concerns at this time If patient goes home with vac will need nursing care for MWF changes, white sponge to bone area, black simplace above to 150mmHg cont suction Apply skin prep to skin prior to application of vac 04/22/2017 Patient ok to go home from podiatry standpoint when cleared medically Patient to go home on antibiotic therapy at recommendation of ID Wound vac removed- wet to dry dressing placed- 4x4 and kerlex placed to cover. Patient to have changed every 12 hours. Please apply skin prep or betadine to macerated skin with dressing changes Patient to ambulate with post operative shoe and walker for assistance Patient will need follow up in wound care clinic with next tuesday Patient to call with any fevers, chills, n/v or flu like symptoms Slight rise in WBC noted, unlikely from surgical wound. May obtain follow up labs on outpatient basis at recommendations per internal med Creatine continues to decrease- patient is voiding (2) Diabetes mellitus Current Visit: Yes Status: Chronic Continue medical management Qualifiers: Diabetes mellitus type: type 2 Diabetes mellitus complication status: with skin complications Diabetes mellitus complication detail: with foot ulcer Diabetes mellitus medical terminologist insulin use: with medical terminologist use Qualified Code(s) : E11.621 - Type 2 diabetes mellitus with foot ulcer; L97.509 - Non-pressure chronic ulcer of other part of unspecified foot with unspecified severity; Z79.4 - assisted (current) use of insulin (3) Osteomyelitis Current Visit: Yes Status: Acute Qualifiers: Osteomyelitis type: other acute Osteomyelitis location: foot Laterality: right Qualified Code(s): M86.171 - Other acute osteomyelitis, right ankle and foot Subjective Principal diagnosis: Gangrene of #5 toe, with abscess right foot. Interval history: 04/14/17 Ms. Sellers is a 46 year old female who arrived to [facility] last night with complaints of discoloration to right foot toe #5. Patient states that she noticed 2-3 days ago it was a little dark. States that yesterday she noticed it was really dark, she was having some pain to the toe and states she had a "little fever" Patient denies any known trauma to toe but states she walks barefoot everywhere or wears thin open toed slippers. Patient has hx of diabetes mellitus which she states has been poorly controlled. Patient was evaluated in ED and admitted with osteomyelitis of the 5th digit with gas noted to CT and presence of necrosis of toe. was contacted over night, patient was made NPO and plan for surgical intervention today. Patient resting comfortably on arrival to room. Patient states she has some pain to the toe at this time. Patient denies any fevers, chills, n/v or flu like symptoms at this time. Patient denies any calf pain. Patient awaiting surgery, denies any questions. 04/15/17 Patient underwent I&D and amputation of toe #5 of right digit on 04/14/[address] Beebe. Upon entering room patient is sitting up in chair eating a cheeseburger and fries. Patient denies any pain at this time. Patient states she feels ok. Patient denies any fevers, chills, n/v or flu like symptoms. Patient denies any calf pain. Wound vac intact and running without issue. 04/19/2017 Patient resting comfortably. Wound vac in place and running without issue. Vac was changed Tuesday per . YONATHAN wrap in place for swelling to RLE. Patient remains inpatient due to elevated creatine. Continues to trend upwards. Being managed per nephrology. Patient denies any pain at this time. Denies any fevers chills n/v or flu like symptoms 04/20/17 Patient resting comfortably in bed. Wound vac in place and running without issue. Patient states she is feeling good. States she slept well last night for the first time. Rates pain 3/10. Patient denies any fevers, chills, n/ v or flu like symptoms 04/22/2017 Patient awaiting discharge at this time. Submitted wound vac paperwork. State there is staffing issues getting homehealth to change vac. Will remove today and apply wet to dry dressings. Change BID. Patient creatine continues to slowly trend downward. There is a slight increase in wbc but after changing dressing there is no reason to suspect the surgical wound is the causative issue. Patient resting comfortably, states she is getting around good with walker. Patient denies any pain. Patient denies any concerns at this time. Patient denies any fevers chills n/v or flu like symptoms. Objective - Vital Signs Vital Signs: Vital Signs Temp Pulse Resp BP Pulse Ox 04/22/17 11:38 98.1 F 64 16 136/90 100 04/22/17 07:13 98.0 F 66 16 142/90 100 04/21/17 23:09 97.4 F L 69 18 138/84 98 04/21/17 19:57 97.8 F 67 18 134/85 98 04/21/17 16:30 97.6 F 65 16 161/96 98 Intake and Output 04/21/17 04/22/17 04/22/17 23:59 07:59 15:59 Intake Total 1100 / 1100 1220 / 1220 Output Total 900 / 900 1360 / 1360 600 / 600 Balance 200 / 200 -1360 / -1360 620 / 620 Intake: IV Fluids 1100 / 1100 1100 / 1100 0.9 % Sodium Chloride 1, 1000 / 1000 1000 / 1000 000 ML @ 100 mls/hr IVC . Q10H BIBI Rx#:[id number] Zosyn 3.375 GM In 100 / 100 100 / 100 Dextrose 5% (Minibag+) 100 ML 100 ML @ 25 mls/hr IVPB Q12H BIBI Rx#: [id number] Oral 120 / 120 Output: Urine 900 / 900 1350 / 1350 600 / 600 Wound Drainage 10 Right Foot 10 Other: Meal Breakfast Percent of Meal Consumed 100% # Voids 1 Blood Glucose* 135 108 172 - Exam Exam: Awake alert and oriented Wound vac removed. Pulses palpable. Edema has decreased since previously noted. Minimal erythema 2 suture lines remain intact. There is slight maceration to incision lines but this is improved since last noted. Wound bed of I&D site is clean. Beefy red granulation tissue noted. Scant serosang drainage. No odor. No warmth. Mild pain with manipulation of wound. 3cm in length 2cm in width and 2cm in depth. Slight undermining noted to 12oclock. 0.3cm. There remains a healing wound to sub MT head #1. This measures [id number] beefy red granulation tissue, surrounded by slightly macerated tissue. No appearance of infection Sensation intact to moderate touch Movement intact. Muscle strength 5/5 and equal bilaterally No calf pain with manual compression - Lab Result Diagrams: 04/22/17 06:10 04/22/17 06:10 Labs: Abnormal lab results WBC 12.2 K/mcL (4.3-11.1) H 04/22/17 06:10 MCV 82.4 fL (83.0-100.0) L 04/22/17 06:10 MPV 9.3 fL (9.4-12.4) L 04/22/17 06:10 Reactive Lymphocytes Present (Not Present) A 04/17/17 03:20 ESR >= 130 mm/hr (0-15) H 04/13/17 18:00 BUN 21 mg/dL (7-20) H 04/22/17 06:10 Creatinine 3.94 mg/dL (0.57-1.11) H 04/22/17 06:10 Est GFR ( Amer) 15 (> 60) L 04/22/17 06:10 Est GFR (Non-Af Amer) 12 (> 60) L 04/22/17 06:10 BUN/Creatinine Ratio 5 (6-26) L 04/22/17 06:10 Glucose 113 mg/dL (70-99) H 04/22/17 06:10 POC Glucose 135 (58-89) H 04/21/17 20:01 Hemoglobin A1c 9.3 % (-5.6) H 04/14/17 05:02 Calcium 8.4 mg/dL (8.6-10.8) L 04/22/17 06:10 C-Reactive Protein 68 mg/L (Less than 5) H 04/19/17 03:33 Albumin 2.2 g/dL (3.5-5.0) L 04/19/17 03:33 Globulin 4.8 g/dL (2.4-3.5) H 04/19/17 03:33 Albumin/Globulin Ratio 0.5 (1.1-2.2) L 04/19/17 03:33 Urine Clarity Cloudy (Clear) A 04/16/17 13:27 Ur Specific [place] 1.007 (1.010-1.025) L 04/16/17 13:27 Urine Blood Small (Negative) H 04/16/17 13:27 Urine Microscopic WBC 3-5 per hpf (0-3) H 04/16/17 13:27 Urine Bacteria Many per hpf (None-Few) H 04/16/17 13:27 Urine Osmolality 83 mOsm/kg (300-1090) L 04/16/17 13:27 Microalb/Creat Ratio 320 (0-30) H 04/16/17 13:27 Protein/Creatinin Ratio 0.70 mg/mg (0-0.20) H 04/16/17 13:27 Urine Total Protein 21 mg/dL (1-14) H 04/16/17 13:27 Vancomycin Trough 39.4 mcg/mL (10-20) H* 04/17/17 11:15 Microbiology, Last 48 Hours 04/14/17 14:57 Anaerobic Culture - Final Right Foot Anaerobic Gram Negative Cocci Anaerobic Gram Negative [place] 04/14/17 14:57 Gram Stain - Final Right Foot - VTE Documentation of Mechanical Device: Intermittent pneumatic compression device Consult Discharge Plan - Plan Instructions: Amoxicillin/Clavulanate Potassium (By mouth), Wound Infection (DC ), Negative Pressure Wound Therapy (DC) Referrals: NO,PCP [Primary Care Provider] -
--- NOTE | 2017-04-22 14:50 | Discharge Summary ---
Date of Encounter: 04/22/17 Time of Encounter: 14:48 - Discharge Diagnosis (1) Osteomyelitis of toe of right foot Priority: Primary Status: Acute (2) Diabetes mellitus Priority: Secondary Status: Chronic Qualifiers: Diabetes mellitus type: type 2 Diabetes mellitus complication status: with skin complications Diabetes mellitus complication detail: with foot ulcer Diabetes mellitus director long term care insulin use: with [facility] use Qualified Code(s) : E11.621 - Type 2 diabetes mellitus with foot ulcer; L97.509 - Non-pressure chronic ulcer of other part of unspecified foot with unspecified severity; Z79.4 - detention (current) use of insulin (3) Morbid obesity with BMI of 45.0-49.9, adult Priority: Secondary Status: Chronic (4) Tobacco abuse Priority: Secondary Status: Chronic (5) JIGNESH (acute kidney injury) Priority: Secondary Status: Acute (6) Gangrene of toe Priority: Secondary Status: Acute (7) Vancomycin adverse reaction Priority: Secondary Status: Acute Qualifiers: Encounter type: initial encounter Qualified Code(s): T36.8X5A - Adverse effect of other systemic antibiotics, initial encounter - Discharge Medications Prescriptions: Amoxicillin/Clavulanate [Augmentin] 500 mg PO BIDWM #28 tablet Home Medications: BuPROPion SR (12 HR) [Wellbutrin SR] 150 mg PO BID 10/03/15 [History] Ergocalciferol (VITAMIN D2) [Vitamin D2] 50,000 unit PO SA 04/13/17 [History] Insulin Degludec [Tresiba Flextouch U-100] 22 unit SQ DAILY 04/13/17 [History] Liraglutide [Victoza 2-Sameer] 1.8 mg SQ DAILY 04/13/17 [History] hydrOXYzine HCl [Hydroxyzine HCl] 25 - 50 mg PO TID PRN 04/13/17 [History] Amoxicillin/Clavulanate [Augmentin] 500 mg PO BIDWM #28 tablet 04/22/17 [Rx] Allergies/Adverse Reactions: Allergies No Known Allergies Allergy (Unverified 06/05/15 08:07) Date of admission: 04/13/17 22:23 Primary care physician: PCP NO Consults: 04/13/17 23:12 Consult to Nutrition [CONS] Routine Comment: Consulting Provider: NUTRITION Reason for Dietary Consult: MST Score Consult to Pastoral Services [CONS] Routine Comment: 04/13/17 23:59 Consult to Senior Landscape Architect [CONS] Routine Reason for SW Consult: Health care proxy 04/14/17 17:25 Consult to Occupational Therapy [CONS] Routine Comment: Evaluate, develop and implement POC Reason for Consult: Eval. Consult to Physical Therapy [CONS] Routine Comment: Evaluate, develop and implement POC Reason for Consult: Eval. 04/15/17 08:15 Consult to Invasive Line Access Team [CONS] Routine Reason for Consult: Picc Line Insertion Line Type: PICC 04/20/17 10:04 Consult to Nephrology [CONS] Routine Consulting Provider: Kidney Liv/SUZETTE/MCKENNA/JANNETTE Reason for Consult: JIGNESH Time Notified: 10:04 Call Completed: Yes - Patient Status Disposition: Home, Self-Care Condition: Good Functional capacity at discharge: uses cane/walker Overall status at discharge: patient is not back to baseline - Discharge Instructions Instructions: Amoxicillin/Clavulanate Potassium (By mouth), Wound Infection (DC ), Negative Pressure Wound Therapy (DC) Follow Up With: Yassine Britt MD [Partnered Physician] - 05/23/17 10:00 am Gil Beebe DPM [Partnered Physician] - 04/27/17 2:15 pm (Wound clinic) Bennie Root DO [Partnered Physician] - NO,PCP [Primary Care Provider] - (patient given referral number) Stanley Gama MD [Partnered Physician] - (Office to call with appointment date and time.) Additional Instructions: Stop metformin and spironolactone. Keep well hydrated. Avoid use of nonsteroidal anti-inflammatory drugs at all costs. If you have severe diarrhea please call your doctor right away. - Diet and Activity Activity: ambulate only with your walker Diet: diabetic diet, low fat, low cholesterol, low salt diet Hospital course: Ms. Sellers is a 46 year old female with past medical history significant for type 2 diabetes, hypertension and morbid obesity who presented to the hospital for the evaluation of black discoloration of her right foot. She was found to have gangrene of the right fifth toe. She was admitted to the medical service. She was treated with IV antibiotics and fluids. Podiatry was consulted and she had incision and debridement of the wound with cultures and amputation of the right fifth toe. She received treatment with Zosyn and vancomycin. Her creatinine increased to 1.8 and was noted that vancomycin level was elevated at 47. Creatinine continued to trend up to 4.1. Vancomycin was stopped promptly. Nephrology was consulted. She was treated with IV fluids and creatinine started trending down. She continued to have good urine output and did not have any signs or symptoms of uremia. Creatinine is 3.9 today. She was cleared by nephrology for discharge. I encouraged oral hydration. ID recommended switching to oral antibiotics and she received a prescription for Augmentin. Podiatry recommended wound VAC which will be delivered at home. She will be discharged home with home health. I have explained the plan of care to the patient and her in great detail and they verbalized understanding. I have counseled the patient regarding the benefits of smoking cessation. I have spent 40 minutes coordinating this discharge today. For further detail about this hospitalization please refer to the H&P, consultation notes, operative notes and progress notes. - Time Spent with Patient Total time spent providing and/or coordinating discharge services: Greater than 30 minutes - Constitutional Vitals: Temp Pulse Resp BP Pulse Ox 98.1 F 64 16 136/90 100 04/22/17 11:38 04/22/17 11:38 04/22/17 11:38 04/22/17 11:38 04/22/17 11:38 General appearance: Present: A&O X 3 - Respiratory Respiratory exam: Present: CTAB. Absent: accessory muscle use, rales, rhonchi, wheezes - Cardiovascular Cardiovascular exam: Present: RRR, +S1, +S2. Absent: diastolic murmur, gallop, rubs, systolic murmur - GI/Abdominal GI/Abdominal exam: Present: normal bowel sounds, soft, no peritoneal signs. Absent: distended, tenderness - VTE Documentation of Mechanical Device: Intermittent pneumatic compression device
--- NOTE | 2017-04-22 14:54 | Physician Discharge Referral ---
Home Health/Hosp Referral Info Transfer to: Home Health Provider in Charge Post Discharge: PCP - Diagnosis (1) Osteomyelitis of toe of right foot Status: Acute (2) Diabetes mellitus Status: Chronic (3) Morbid obesity with BMI of 45.0-49.9, adult Status: Chronic (4) Tobacco abuse Status: Chronic (5) JIGNESH (acute kidney injury) Status: Acute (6) Gangrene of toe Status: Acute (7) Vancomycin adverse reaction Status: Acute - Respiratory Orders Smoking Cessation: Smoking cessation has been advised. For more information, call the [place] Tobacco Quit Line at 9-400-CVWI-NOW. - Diet/Nutrition Diet/Nutrition Orders: No Added Salt (TARAS), Renal, Cardiac, No Concentrated Sweets - Activity Activity Orders: Walker - Services Needed Following services are medically necessary services: Nursing, Home Health Aide - Transfer Medications Prescriptions: Amoxicillin/Clavulanate [Augmentin] 500 mg PO BIDWM #28 tablet Home Medications: BuPROPion SR (12 HR) [Wellbutrin SR] 150 mg PO BID 10/03/15 [History] Ergocalciferol (VITAMIN D2) [Vitamin D2] 50,000 unit PO SA 04/13/17 [History] Insulin Degludec [Tresiba Flextouch U-100] 22 unit SQ DAILY 04/13/17 [History] Liraglutide [Victoza 2-Sameer] 1.8 mg SQ DAILY 04/13/17 [History] hydrOXYzine HCl [Hydroxyzine HCl] 25 - 50 mg PO TID PRN 04/13/17 [History] Amoxicillin/Clavulanate [Augmentin] 500 mg PO BIDWM #28 tablet 04/22/17 [Rx] Allergies/Adverse Reactions: Allergies No Known Allergies Allergy (Unverified 06/05/15 08:07) Certification: Further, I certify that my clinical findings support that this patient is homebound (i.e. absences from home require considerable and taxing effort and are for medical reasons or anabaptist services or infrequently or short duration when for other reasons) because: Homebound Reason: Patient requires assistance of a person or device to safely leave home, Post-surgery restriction and or conditions limit ability to leave home Attestation: My signature below is to certify that this patient is under my care and that I, or nurse practitioner, or a physician's logistics assistant working with me, has a face-to -face encounter with this patient.
== END 2017-04-22 15:56 | disposition home health service (06) | DRG 854 ==
LOC: 3NENU 16:25 → EMEROO 16:25 → SUATTDRO 22:23 → 3NENU 22:40
PROVIDERS: ADMIT Internal Medicine Sleep Medicine; ATTEND Internal Medicine

== ENCOUNTER 2017-10-26 15:38 | Inpatient (IN) ==
--- NOTE | 2017-10-26 17:00 | Podiatry History & Physical ---
History of Present Illness Chief complaint: Diabetic foot ulcer with infection right foot HPI: Ms. Sellers is a 47 year old female , presents today to wound care clinic with her with a 2 week history of an open wound that is draining. She has a history of diabetic foot infection with loss of fifth toe due to gangrene this past year. She was treated with surgical intervention/debridement with open amputation of toe and use of wound VAC for secondary closure wound and long -term IV antibiotics this was quite successful. Unfortunately she now resents with a recurrent wound on the plantar aspect of the right foot distal lateral aspect of the fifth metatarsal. Probing the bone was positive there is loose pieces of bone in the wound which was removed in wound care clinic and sent for culture. We also performed a limited debridement and wound care clinic irrigation was saline and swab cultures taken aerobic and anaerobic. The patient does have spreading cellulitis from the wound proximally plantarly and medially. She has no complaints of chest pain nausea vomiting fever or chills or shortness of breath. Patient is quite anxious. Because of the depth of the wound and exposure of bone she is to be immediately admitted for intravenous antibiotics and surgical debridement of the wound to control the infection and to determine the extent of the infection. Patient understands the risks versus benefits of outpatient versus inpatient care. She opts to be admitted today per my recommendation. All Systems Reviewed: A 10-system review of systems was performed and is negative for pertinent findings except as documented above in the HPI. Past Med Surg Social Fam HX - Past Medical History Medical history: diabetes, hypertension, other Psychiatric history: anxiety, depression - Past Surgical History Surgical History: orthopedic, other - Social History Smoking Status: Current every day smoker Smokeless Tobacco Status: No Alcohol use: none Drug use: none - Family History Mother Living Status: Still Living Medications and Allergies BuPROPion SR (12 HR) [Wellbutrin SR] 150 mg PO BID 10/03/15 [History] Ergocalciferol (VITAMIN D2) [Vitamin D2] 50,000 unit PO SA 04/13/17 [History] Insulin Degludec [Tresiba Flextouch U-100] 22 unit SQ DAILY 04/13/17 [History] Liraglutide [Victoza 2-Sameer] 1.8 mg SQ DAILY 04/13/17 [History] hydrOXYzine HCl [Hydroxyzine HCl] 25 - 50 mg PO TID PRN 04/13/17 [History] Amoxicillin/Clavulanate [Augmentin] 500 mg PO BIDWM #28 tablet 04/22/17 [Rx] 3 Allergy/AdvReac Type Severity Reaction Status Date / Time No Known Allergies Allergy Unverified 06/05/15 08:07 Physical Exam - Constitutional General appearance: mild distress, morbidly obese - Extremities Exam Extremities exam: Present: normal capillary refill - Expanded Lower Extremities Exam Foot/Toe exam: Present: swelling (We observe an open ulceration proximally 1.5 cm x 1.5 cm irregular in border configuration. Macerated wound edges no spontaneous purulent drainage. The bone was exposed and visualized clinically. We have spreading cellulitis proximally medially and laterally. No odor. No fluctuance.) Neuro vascular tendon exam: Present: sensory deficit (Patient has loss of protective sensation, 2. discrimination epicritic sensation and vibratory sensation from toes to tibia bilaterally.) - Neurological Exam Neurological exam: Present: CN II-XII intact, oriented X3 - Vascular Capillary Refill: less than 3 seconds (We observe 2/4 peripheral edema secondary to venous insufficiency of both legs. We also observe stasis dermatitis associated with chronic peripheral edema.) Lower Extremity Vascular: decreased fine/light touch, sensory deficit - Ankle & Foot Appearance ankle: swelling Results - Labs Labs: All other labs normal. - Diagnostic results Ankle/Foot x-ray: pending Assessment and Plan (1) Osteomyelitis of foot, right, acute Current visit: Yes Status: Acute Assessment: #1 diabetic foot ulcer with osteomyelitis with visualized bone with a positive probe to bone test right foot #2 insulin requiring, diabetes with neuropathy #3 multiple comorbidities as outlined in her history Plan: #1 admit for intravenous antibiotics pending cultures to secure appropriate antibiotic therapy long-term #2 consultation with internal medicine/hospitalist service for management of her diabetes and comorbidities #3 proceed to the operating room, within the next 24 hours for formal debridement of all necrotic tissue and bone #4 consultation with infectious disease for appropriate antibiotic therapy long-term. #5 we will let her clinical picture dictate the next tier of management
[2017-10-26] MEDS ORDERED: D5% in Water 1,000 ML IVC PRN (17:25)
[2017-10-26] MEDS ORDERED: *HR* Dextrose 50 % in Water (Syg) 50 ML SYRINGE IVP PRN (17:25)
[2017-10-26] MEDS ORDERED: Dextrose Gel 15 GM/37.5 ML TUBE PO PRN ×2 (17:25)
[2017-10-26 18:07] LABS: Basophils % 0.3 %; Eosinophils # 0.2 K/mcL (0.0-0.6); Eosinophils % 1.1 %; Hemoglobin 15.3 g/dL (11.5-15.4); Immature Granulocytes % 0.4 % (0-4); Lymphocytes # 3.5 K/mcL (0.6-4.6); Lymphocytes % 24.8 %; Mean Corpuscular Hemoglobin 27.2 pg (28.0-33.3); Mean Corpuscular Volume 79.9 fL (83.0-100.0); Mean Platelet Volume 9.7 fL (9.4-12.4); Monocytes # 0.8 K/mcL (0.0-1.3); Neutrophils # 9.5 K/mcL (1.6-8.9); Platelet Count 363 K/mcL (140-400); Red Blood Count 5.63 M/mcL (3.82-4.97); Red Cell Distribution Width 12.7 % (11.5-14.5); Segmented Neutrophils % 67.4 %
[2017-10-26 18:08] LABS: INR 1.1; Prothrombin Time 12.4 Seconds (9.4-12.1)
[2017-10-26 18:13] LABS: Hemoglobin A1C 9.6 %
--- NOTE | 2017-10-26 18:18 | Internal Medicine Consult Note ---
Date of Encounter: 10/26/17 Time of Encounter: 17:39 - Assessment and Plan (1) Osteomyelitis of foot, right, acute Current Visit: Yes Status: Acute Assessment and plan: Managed by Podiatry patient placed on antibiotics (2) Diabetes mellitus Current Visit: No Status: Chronic Assessment and plan: Will start patient on basal insulin based on ideal body weight and titrate dose up as needed. Goal glucose <180 in the inpatient setting. Qualifiers: Diabetes mellitus type: type 2 Diabetes mellitus complication status: with skin complications Diabetes mellitus complication detail: with foot ulcer Diabetes mellitus long-term insulin use: with long-term use Qualified Code(s) : E11.621 - Type 2 diabetes mellitus with foot ulcer; L97.509 - Non-pressure chronic ulcer of other part of unspecified foot with unspecified severity; Z79.4 - USP (current) use of insulin (3) Tobacco abuse Current Visit: No Status: Chronic Internal Medicine - CN: HPI - Data of Consult Requesting Physician: Gil Beebe, - Consult Narrative History of present illness: Ms. Sellers is a 47 year old female with history of diabetes presented to wound care clinic for an open wound for two weeks. She has history of diabetic foot infection with loss of fifthe toe because of gangrene. She was sent in for the recurrent ulcer for IV antibitocs and surgical debridement of wound. We are consulted for medical management of diabetes and hypertension. She takes Victoza, Degludec at home and she states her glocuse levels at home usually run 100-200s. She denies any diabetic neuropathy symptoms. She does not take any hypertension meds but has had elevated blood pressure readings post op. Past Med Surg Social Fam HX - Past Medical History Medical history: diabetes, hypertension, other Psychiatric history: anxiety, depression - Past Surgical History Surgical History: orthopedic, other - Social History Smoking Status: Current every day smoker Smokeless Tobacco Status: No Alcohol use: none Drug use: none - Family History Mother Living Status: Still Living Father Living Status: Cause of : [place] Hx Family Cardiac Disorders: Yes ([place]) All systems: reviewed and no additional remarkable complaints except as stated Internal Medicine - CN: Meds BuPROPion SR (12 HR) [Wellbutrin SR] 150 mg PO BID 10/03/15 [History] Insulin Degludec [Tresiba Flextouch U-100] 0 unit SQ DAILY 04/13/17 [History] Liraglutide [Victoza 2-Sameer] 0 mg SQ DAILY 04/13/17 [History] hydrOXYzine HCl [Hydroxyzine HCl] 25 - 50 mg PO TID PRN 04/13/17 [History] Cyclobenzaprine [Flexeril] 5 mg PO TID PRN 10/27/17 [History] 3 Allergy/AdvReac Type Severity Reaction Status Date / Time No Known Allergies Allergy Unverified 06/05/15 08:07 Internal Medicine - CN: Exam - Constitutional Exam: Gen: NAD, CVS: RRR Lungs; CTAB Abdomen: Soft, NT/ND Ext: ulcer noted on right foot, bone visible Internal Medicine - CN: Reslt - Labs CBC & Chem 7: 10/29/17 04:54 10/29/17 04:54 Labs: Short CBC 10/26/17 Range/Units 17:47 WBC 14.1 H (4.3-11.1) K/mcL Hgb 15.3 (11.5-15.4) g/dL Hct 45.0 H (35.3-44.9) % Plt Count 363 (140-400) K/mcL Neutrophils # 9.5 H (1.6-8.9) K/mcL - ABG Interpretation ABG results: PT/INR, D-dimer PT 12.4 Seconds (9.4-12.1) H 10/26/17 17:47 Consult Discharge Plan - Plan Referrals: Agustina Casey, [facility] [employer] [Primary Care Provider] -
[2017-10-26 18:28] LABS: BUN/Creatinine Ratio 15 (6-26); Blood Urea Nitrogen 12 mg/dL (6-20); C-Reactive Protein 81 mg/L (Less than 10); Calcium 9.2 mg/dL (8.6-10.3); Carbon Dioxide 28 mEq/L (23-29); Chloride 101 mEq/L (98-107); Glucose 261 mg/dL (70-105); Osmolality,Calculated 287 (280-300); Potassium 4.1 mEq/L (3.5-5.1); Sodium 134 mEq/L (136-145); eGFR For African Americans > 60 (> 60); eGFR For Non-African Americans > 60 (> 60)
[2017-10-26] MEDS: Insulin LISPRO 300 UNITS/3 ML VIAL SQ SCH ×2 (18:47→23:48)
[2017-10-26] MEDS: Piperacillin/Tazobactam 3.375 GM/200 ML BAG IVPB SCH (20:20)
[2017-10-26] MEDS ORDERED: Insulin LISPRO 300 UNITS/3 ML VIAL SQ SCH (21:00)
[2017-10-27] MEDS: Clindamycin 600 MG/50 ML 600 MG/50 ML IV.SOLN IVPB SCH ×3 (00:24→14:32)
[2017-10-27] MEDS: Piperacillin/Tazobactam 3.375 GM/200 ML BAG IVPB SCH ×3 (01:06→20:05)
[2017-10-27] MEDS: Insulin LISPRO 300 UNITS/3 ML VIAL SQ SCH ×2 (05:42→17:27)
[2017-10-27] MEDS ORDERED: Insulin LISPRO 300 UNITS/3 ML VIAL SQ SCH (07:30)
[2017-10-27] MEDS ORDERED: Insulin DETEMIR 100 UNIT/ML X5UNITS SQ ONE ×2 (09:46→12:01)
[2017-10-27] MEDS ORDERED: *HR* FentaNYL (PF) 100 MCG/2 ML VIAL ONE (09:51)
[2017-10-27] MEDS ORDERED: *HR* Midazolam HCl 2 MG/2 ML VIAL ONE (09:51)
--- NOTE | 2017-10-27 10:03 | Anesthesia Evaluation PreOp ---
Date of Encounter: 10/27/17 Time of Encounter: 10:01 - Past History Planned Operation: right #5 toe I&D Cardiac History: HTN, Hyperlipidemia Pulmonary History: Smoker, HENNA Dx RECENTERER History: Other (DM neuropathy) Other Medical History: Diabetes Type II (insulin requiring), Other (morbid obesity BMI48) Anesthesia History: No Prior Anesthetic Complications, Past Anesthesia (toe amp) Alcohol Use: none Drug use: none Medications and Allergies BuPROPion SR (12 HR) [Wellbutrin SR] 150 mg PO BID 10/03/15 [History] Insulin Degludec [Tresiba Flextouch U-100] 0 unit SQ DAILY 04/13/17 [History] Liraglutide [Victoza 2-Sameer] 0 mg SQ DAILY 04/13/17 [History] hydrOXYzine HCl [Hydroxyzine HCl] 25 - 50 mg PO TID PRN 04/13/17 [History] Cyclobenzaprine [Flexeril] 5 mg PO TID PRN 10/27/17 [History] 3 Allergy/AdvReac Type Severity Reaction Status Date / Time No Known Allergies Allergy Unverified 06/05/15 08:07 - Meds/Allergy Pre-op Review Medications Reviewed: Yes Allergies Reviewed: Yes Beta Blockers on Current Med List: No Anesthesia Results - Labs 10/26/17 17:47 10/26/17 17:47 Anesthesia Exam Selected Entries 10/27/17 06:45 Temperature 98.4 F Pulse Rate 73 Respiratory Rate 16 Blood Pressure 119/80 O2 Sat by Pulse Oximetry 97 Weight: 131kg BMI 48 NPO (# of Hours): 8 - HEENT Pupil (Motor): EOMI Mallampati: II Teeth: Normal Oral Opening: Greater than 3 - RECENTERER LOC: Oriented RECENTERER Motor: Normal RUE, Normal LUE, Normal RLE, Normal LLE, Normal Face RECENTERER Sensory: Normal: RUE, LUE, Face, Deficit: RLE, LLE - Cardiac Rhythm: Regular Murmur: None - Pulmonary Breath Sounds: bilateral Clear Respiratory Effort: Symmetrical Anesthesia Assess/Plan ASA Score: 3 Modified Kya Scale for Level of Consciousness: Cooperative, oriented, and tranquil Anesthetic Plan: MAC Monitoring Plan: Standard Monitors Recovery Plan: PACU (agrees to MAC)
[2017-10-27 10:13] LABS: Basophils # 0.1 K/mcL (0.0-0.2); Basophils % 0.3 %; Eosinophils # 0.2 K/mcL (0.0-0.6); Eosinophils % 1.4 %; Hematocrit 43.1 % (35.3-44.9); Hemoglobin 14.4 g/dL (11.5-15.4); Immature Granulocytes % 0.4 % (0-4); Lymphocytes # 3.9 K/mcL (0.6-4.6); Lymphocytes % 26.9 %; Mean Corpuscular HGB Conc 33.4 g/dL (31.6-35.5); Mean Corpuscular Hemoglobin 27.1 pg (28.0-33.3); Mean Platelet Volume 9.7 fL (9.4-12.4); Monocytes # 0.8 K/mcL (0.0-1.3); Monocytes % 5.2 %; Neutrophils # 9.5 K/mcL (1.6-8.9); Platelet Count 336 K/mcL (140-400); Red Blood Count 5.32 M/mcL (3.82-4.97); Red Cell Distribution Width 12.8 % (11.5-14.5); Segmented Neutrophils % 65.8 %
[2017-10-27] MEDS ORDERED: Bupivacaine/Clonidine Syringe 1 EACH SYRINGE ONE (10:27)
[2017-10-27] MEDS ORDERED: Clindamycin 600 MG/50 ML 600 MG/50 ML IV.SOLN IVPB ONE (10:51)
[2017-10-27] MEDS ORDERED: Dexamethasone 4 MG/ML VIAL ONE (11:03)
[2017-10-27] MEDS ORDERED: Ondansetron 4 MG/2 ML VIAL ONE (11:03)
[2017-10-27] MEDS ORDERED: Propofol 500 MG/50 ML INFUS..BTL ONE (11:12)
[2017-10-27] MEDS ORDERED: *HR* Dextrose 50 % in Water (Syg) 50 ML SYRINGE IVP PRN (12:01)
[2017-10-27] MEDS ORDERED: Dextrose Gel 15 GM/37.5 ML TUBE PO PRN ×2 (12:01)
[2017-10-27] MEDS ORDERED: D5% in Water 1,000 ML IVC PRN (12:01)
--- NOTE | 2017-10-27 12:03 | Orthopedic Operative Note ---
Date of procedure: 10/27/17 Pre-op diagnosis: #1 osteomyelitis right foot 5 metatarsal. #2 diabetic foot ulcer right Post-op diagnosis: same Procedure: 10/27/17 11:55 #1: Incision of bone cortex for osteomyelitis #2 metatarsectomy #5 metatarsal right foot #3 debridement of all necrotic tissue and bone right foot #4 adjacent tissue transfer with advancement flap plantarly 10/27/17 12:03 Implants: None Complications: None Anesthesia: MAC, local Local Anesthetics: 0.25% Sensorcaine HCL SubQ (cc) Surgeon: Gil Beebe Was there an psychological assistant present: No Estimated blood loss (cc): 10 Tourniquet Time (Minutes): 0 Specimen: Bone fragments portions of #5 metatarsal for culture Condition: stable Disposition: floor Procedure in Detail: 10/27/17 11:57 Details in summary of procedure: The patient was brought to the surgical suite. A sign in procedure was performed. The patient was then transferred to the surgical table and positioned properly safely securely. Right foot and leg were placed in a foam block. No tourniquet was used. Anesthetic timeout was taken. The right ankle was prepped with alcohol 3 times. Ankle block carried out complications. No epinephrine. The right foot was then prepped and draped in usual sterile manner. Surgical timeout was taken. The ulceration was noted to be on the plantar lateral distal aspect of the fifth metatarsal right foot the ulcer was in a triangular configuration. It overlaid the distal aspect of the fifth metatarsal. [place] was plantar base was dorsal. It measured approximately 1.5 cm in width and 1.5 cm in length. At that juncture a standard linear incision was begun from the base the fifth metatarsal distally to just past the ulceration incising the skin dorsal and medial to the base of the ulceration. The 0.2 incisions were then made in oblique fashion from dorsal to plantar in a triangular fashion to excise the ulceration directly down the bone. Incisions were deepened with a #15 scalpel blade to the periosteum the fifth metatarsal. Periosteum and soft tissue reflected using McGlamry elevator from distal to proximal. The bone was noted to be soft and not a normal color texture density. It was friable. Portions of the bone removed as necessary has a fragmented and was sent for culture. The bone was then identified and found to be of normal color texture density proximally. The portion of the bone was then osteotomized using a TPS bone saw from lateral to medial protecting the soft tissue with retraction. The wound was flushed with copious sterile saline. All portions of the infected bone were sent for culture. The remaining bone fifth metatarsal was noted to be of normal color texture density and smooth. All nonviable tissue was then debrided with a pickup and scissor down to the deep fascia including portions of the deep fascia. Satisfied with a completely clean wound without any further evidence of necrosis and exploration of the wound we found no loculated abscesses were other areas of infection. At that juncture a incision was then placed distally and a linear fashion along the original line of incision distal to the triangular shaped excision of the ulceration to create 2 flaps on the plantar aspect. We then rotated/advanced these flaps. These flaps were modified and undermined in the subcutaneous level to transfer the distal portion proximally in the plantar proximal portion distally. This advancement flap was viable after undermining. At that point the wound was inspected and just tissues a Bovie was employed to create hemostasis. There is no active bleeding prior to closure, the necessitated use of ligature or further use of Bovie. The wound was flushed again with copious amounts of sterile saline finding no bone chips or debris and satisfied we have flaps or be fully mobilized plantarly without tension the wound was closed with 2-0 Prolene and 3- 0 Prolene. Estimated blood loss was less than 10 mL. Complications encountered none. The wound was dressed with Adaptic 4 x 4's Kerlix and Medipore tape patient was then sent to holding room in good condition with vital signs stable. 10/27/17 12:03
[2017-10-27] MEDS ORDERED: Piperacillin/Tazobactam 3.375 GM/200 ML BAG IVPB SCH (13:00)
[2017-10-27 17:49] LABS: BUN/Creatinine Ratio 14 (6-26); Blood Urea Nitrogen 13 mg/dL (6-20); Calcium 8.8 mg/dL (8.6-10.3); Carbon Dioxide 22 mEq/L (23-29); Chloride 102 mEq/L (98-107); Glucose 185 mg/dL (70-105); Osmolality,Calculated 285 (280-300); Potassium 4.1 mEq/L (3.5-5.1); Sodium 135 mEq/L (136-145); eGFR For African Americans > 60 (> 60); eGFR For Non-African Americans > 60 (> 60)
--- NOTE | 2017-10-27 21:50 | Internal Med Progress Note ---
Date of Encounter: 10/27/17 Time of Encounter: 17:48 - Assessment and plan (1) Osteomyelitis of toe of right foot Current Visit: No Status: Acute (2) Diabetes mellitus Current Visit: No Status: Chronic Assessment and plan: Start basal insulin tonight based on ideal body weight, 60 kg. Tonight will do 15 units of Levemir and adjust as needed. If needed, will start 5 units humalog with every meal. Goal blood sugar <180. Qualifiers: Diabetes mellitus type: type 2 Diabetes mellitus complication status: with skin complications Diabetes mellitus complication detail: with foot ulcer Diabetes mellitus terminal press operator insulin use: with terminal press operator use Qualified Code(s) : E11.621 - Type 2 diabetes mellitus with foot ulcer; L97.509 - Non-pressure chronic ulcer of other part of unspecified foot with unspecified severity; Z79.4 - [facility]FP (current) use of insulin (3) Morbid obesity with BMI of 45.0-49.9, adult Current Visit: No Status: Chronic (4) Tobacco abuse Current Visit: No Status: Chronic - Subjective Interval history: Patient POD #0 status-post metatarsectomy of #5 metatarsal right foot, debridement, graft. She has no complaints, in no distress. - Constitutional Vitals: Temp Pulse Resp BP Pulse Ox 98.7 F 81 18 120/83 95 10/27/17 20:52 10/27/17 20:52 10/27/17 20:52 10/27/17 20:52 10/27/17 20:52 - Head Head exam: Present: atraumatic, normocephalic - Eye Eye exam: Present: PERRL, conjuntiva pink, sclera anicteric Pupils: Present: PERRL - Neck Neck exam general surgery: Present: supple, trachea midline. Absent: lymphadenopathy - Respiratory Respiratory exam: Present: CTAB. Absent: accessory muscle use, rales, rhonchi, wheezes - Cardiovascular Cardiovascular exam: Present: RRR, +S1, +S2. Absent: diastolic murmur, gallop, rubs, systolic murmur - GI/Abdominal GI/Abdominal exam: Present: normal bowel sounds, soft, no peritoneal signs. Absent: distended, tenderness - Extremities Exam Extremities exam: Present: warm, radial pulses palpable and symmetrical. Absent : calf tenderness, cyanotic, pedal edema Additional comments: S/p partial foot amputation: Right foot in wrap, clean dressing, no active drainage or bleeding. - Neurological Exam Neurological exam: Present: CN II-XII intact, oriented X3, no focal deficits. Absent: pronater drift, facial droop, speech deficit - Skin Skin exam: Present: dry, intact Internal Medicine: Result - Labs CBC & Chem 7: 10/27/17 09:53 10/27/17 09:53 Labs: Short CBC 10/27/17 Range/Units 09:53 WBC 14.5 H (4.3-11.1) K/mcL Hgb 14.4 (11.5-15.4) g/dL Hct 43.1 (35.3-44.9) % Plt Count 336 (140-400) K/mcL Neutrophils # 9.5 H (1.6-8.9) K/mcL BMP 10/27/17 09:53 Sodium 135 L Potassium 4.1 Chloride 102 Carbon Dioxide 22 L BUN 13 Creatinine 0.95 Glucose 185 H Calcium 8.8 - ABG Interpretation ABG results: PT/INR, D-dimer PT 12.4 Seconds (9.4-12.1) H 10/26/17 17:47 - Impressions Impressions Foot X-Ray 10/27/17 14:08 IMPRESSION: Postoperative changes correlating with further resection of the 5th ray to the level of the proximal 5th metatarsal as above. No evidence for acute complication. D/ / 10/27/2017 15:51:27 Shaq Almeida MD / chaitanya Interpreting Provider: Shaq Almeida MD - VTE Documentation of Mechanical Device: Intermittent pneumatic compression device Consult Discharge Plan - Plan Referrals: Agustina Casey, BARREL BANDER [Primary Care Provider] -
[2017-10-27] MEDS ORDERED: Insulin DETEMIR 100 UNIT/ML X5UNITS SQ SCH (22:30)
[2017-10-28] MEDS: Clindamycin 600 MG/50 ML 600 MG/50 ML IV.SOLN IVPB SCH ×4 (00:08→22:58)
[2017-10-28] MEDS: Insulin LISPRO 300 UNITS/3 ML VIAL SQ SCH ×7 (00:52→22:48)
[2017-10-28] MEDS: Piperacillin/Tazobactam 3.375 GM/200 ML BAG IVPB SCH ×3 (05:15→22:59)
[2017-10-28 05:49] LABS: Basophils % 0.1 %; Eosinophils % 0.1 %; Hematocrit 39.4 % (35.3-44.9); Hemoglobin 13.7 g/dL (11.5-15.4); Immature Granulocytes % 0.5 % (0-4); Lymphocytes # 2.2 K/mcL (0.6-4.6); Lymphocytes % 13.2 %; Mean Corpuscular HGB Conc 34.8 g/dL (31.6-35.5); Mean Corpuscular Hemoglobin 27.6 pg (28.0-33.3); Mean Corpuscular Volume 79.4 fL (83.0-100.0); Mean Platelet Volume 9.9 fL (9.4-12.4); Monocytes # 0.8 K/mcL (0.0-1.3); Monocytes % 4.8 %; Neutrophils # 13.4 K/mcL (1.6-8.9); Platelet Count 322 K/mcL (140-400); Red Blood Count 4.96 M/mcL (3.82-4.97); Red Cell Distribution Width 12.6 % (11.5-14.5); Segmented Neutrophils % 81.3 %
[2017-10-28 06:06] LABS: BUN/Creatinine Ratio 17 (6-26); Blood Urea Nitrogen 14 mg/dL (6-20); Calcium 8.6 mg/dL (8.6-10.3); Carbon Dioxide 24 mEq/L (23-29); Chloride 102 mEq/L (98-107); Glucose 285 mg/dL (70-105); Osmolality,Calculated 287 (280-300); Sodium 133 mEq/L (136-145); eGFR For African Americans > 60 (> 60); eGFR For Non-African Americans > 60 (> 60)
[2017-10-28] MEDS ORDERED: *HR* Dextrose 50 % in Water (Syg) 50 ML SYRINGE IVP PRN (08:16)
[2017-10-28] MEDS ORDERED: D5% in Water 1,000 ML IVC PRN (08:16)
[2017-10-28] MEDS ORDERED: Dextrose Gel 15 GM/37.5 ML TUBE PO PRN ×2 (08:16)
[2017-10-28] MEDS ORDERED: Insulin DETEMIR 100 UNIT/ML X5UNITS SQ ONE (09:00)
--- NOTE | 2017-10-28 14:45 | Infectious Disease Consult ---
Date of Encounter: 10/28/17 Time of Encounter: 14:42 Assessment and Plan (1) Osteomyelitis of foot, right, acute Status: Acute Assessment and plan: Initial foot infection in March status post I&D by Dr. Beebe Recurrence of infection status post I&D on 10/26/17 with osteomyelitis and gangrene. Intra-Op cultures positive for gram-positive cocci and gram-negative rods Final ID pending Patient is on empiric Zosyn and clindamycin. Status post PICC line placement in the right upper extremity Duration of treatment 6 weeks Monitor labs and for drug toxicity Ideally I would like to use vancomycin instead of clindamycin but patient had vancomycin toxicity last time with acute kidney injury. We will wait for the cultures to finalize before we make final recommendations on antibiotic use. (2) JIGNESH (acute kidney injury) Status: Acute Assessment and plan: Resolved kidney function within normal limit now (3) Gangrene Status: Acute (4) Diabetes mellitus Status: Chronic Assessment and plan: Poorly controlled Most recent A1c was elevated Patient will need adequate glucose control for better outcome Qualifiers: Diabetes mellitus type: type 2 Diabetes mellitus complication status: with skin complications Diabetes mellitus complication detail: with foot ulcer Diabetes mellitus superintendent terminal insulin use: with senior care use Qualified Code(s) : E11.621 - Type 2 diabetes mellitus with foot ulcer; L97.509 - Non-pressure chronic ulcer of other part of unspecified foot with unspecified severity; Z79.4 - USP (current) use of insulin (5) Tobacco abuse Status: Chronic Infectious Disease HPI - Data of Consult Patient: new to practice Consult date: 10/28/17 Requesting Physician: Gil Beebe, Primary Care Provider: Agustina Casey CNP - Consult Narrative Reason for consult: osteoymeylitis History of present illness: Ms. Sellers is a 47 year old female Patient is a 47-year-old woman well-known to our service who was admitted on 10/26 for diabetic foot ulcer with infection of the right foot, we are consulted on 10/28/2017 for osteomyelitis status post I&D and antibiotics recommendations. Patient is a for 7-year-old woman with past medical history significant for diabetes, anxiety and depression who was recently admitted to [facility] in March with the right foot infection status post I&D by podiatry. At that time they felt that the bone was pristine and there was no bone involvement surgically. Patient also had acute kidney injury due to vancomycin toxicity. Patient was discharged on oral Augmentin follow-up with Dr. Beebe as an outpatient and suggested IV antibiotics if symptoms return. Since admission, patient has been afebrile with MAXIMUM TEMPERATURE of 98.6 heart rate has been within normal limits, presenting WBC of 14.1 with normal differential no bandemia. Patient also had elevated inflammatory markers with an ESR of 104 and a CRP of 81. X-ray on admission revealed post amputation changes at the fifth toe irregularity of the distal portion of the fifth metatarsal is noted. This is indeterminate may be postoperative, however osteomyelitis is another consideration. Patient was taken to surgery on 10/27/[address] Beebe where he underwent incision of bone cortex for osteomyelitis, metastatic tarsectomy of the fifth metatarsal right foot, debridement of all necrotic tissue and bone of the right foot, adjacent tissue transfer with infection flap. Intra-Op cultures were sent and theyre showing gram-positive cocci and gram-negative rods. Patient was started empirically on Zosyn and clindamycin. Surgical biopsy revealed gram-positive cocci and gram-negative rods many bacteria observed white blood cells 10-25 per low power field CC: Gil Beebe, Past Med Surg Social Fam HX - Past Medical History Medical history: diabetes, hypertension, other Psychiatric history: anxiety, depression - Past Surgical History Surgical History: orthopedic, other - Social History Smoking Status: Current every day smoker Smokeless Tobacco Status: No Alcohol use: none Drug use: none - Family History Mother Living Status: Still Living Father Living Status: Cause of : [place] Hx Family Cardiac Disorders: Yes ([place]) Infectious Disease-CN:Meds BuPROPion SR (12 HR) [Wellbutrin SR] 150 mg PO BID 10/03/15 [History] Insulin Degludec [Tresiba Flextouch U-100] 0 unit SQ DAILY 04/13/17 [History] Liraglutide [Victoza 2-Sameer] 0 mg SQ DAILY 04/13/17 [History] hydrOXYzine HCl [Hydroxyzine HCl] 25 - 50 mg PO TID PRN 04/13/17 [History] Cyclobenzaprine [Flexeril] 5 mg PO TID PRN 10/27/17 [History] 3 Allergy/AdvReac Type Severity Reaction Status Date / Time No Known Allergies Allergy Unverified 06/05/15 08:07 Review of systems: 10 point review of systems done negative other for what is mentioned in history of present illness. Exam - Constitutional Vitals: Temp Pulse Resp BP Pulse Ox 98.2 F 83 16 133/85 96 10/28/17 12:01 10/28/17 12:01 10/28/17 12:01 10/28/17 12:01 10/28/17 12:01 General appearance: no acute distress, obese, no febrile - Head Head exam: Present: atraumatic, normocephalic - Eye Eye exam: Present: EOMI, PERRL, sclera anicteric - ENT ENT exam: Present: mucous membranes moist - Neck Neck exam: Present: full ROM. Absent: meningismus - Respiratory Respiratory exam: Present: CTAB, wheezes - Cardiovascular Cardiovascular exam: Present: RRR, +S1, +S2 - GI/Abdominal GI/Abdominal exam: Present: normal bowel sounds, soft. Absent: tenderness - Extremities Exam Additional comments: Adequate perfusion, right foot surgically wrapped. Patient also has a PICC line right upper extremity. - Neurological Exam Neurological exam: Present: alert, oriented X3, no focal deficits - Psychiatric Psychiatric exam: Present: normal affect, normal mood - Skin Skin exam: Present: normal color. Absent: rash Infectious Disease CN: Results - Labs CBC & Chem 7: 10/28/17 04:53 10/28/17 04:53 Cultures: Cultures 10/27/17 11:30 Surgical Biopsy Culture - Preliminary Right Foot - VTE Documentation of Mechanical Device: Intermittent pneumatic compression device Consult Discharge Plan - Plan Referrals: Agustina Casey WAFER LINE WORKER [Primary Care Provider] -
--- NOTE | 2017-10-28 15:22 | Podiatry Progress Note ---
Date of Encounter: 10/28/17 Time of Encounter: 12:00 - Assessment and Plan (1) Osteomyelitis of toe of right foot Current Visit: No Status: Acute s/p #1: Incision of bone cortex for osteomyelitis #2 metatarsectomy #5 metatarsal right foot #3 debridement of all necrotic tissue and bone right foot #4 adjacent tissue transfer with advancement flap plantarly Plan: PO day #1- Patient resting comfortably Dressing removed Incision line assessed, cleansed with saline, pat dry Applied betadine to macerated skin to dry- adaptic- dry bulk dressing If any further bleeding or strikethrough drainage is noted please call podiatry Awaiting final intra-op cultures Initial intra-op gram stain shows gram neg rods and gram positive cocci Patient currently on Zosyn and Clinamycin s/p picc placement to RUE ID following and recommendations appreciated. Patient will need to be complete NWB to forefoot (2) Diabetes mellitus Current Visit: No Status: Chronic Tight glucose control to prevent any further complication and promote proper healing Qualifiers: Diabetes mellitus type: type 2 Diabetes mellitus complication status: with skin complications Diabetes mellitus complication detail: with foot ulcer Diabetes mellitus termination clerk insulin use: with termination clerk use Qualified Code(s) : E11.621 - Type 2 diabetes mellitus with foot ulcer; L97.509 - Non-pressure chronic ulcer of other part of unspecified foot with unspecified severity; Z79.4 - skilled nursing (current) use of insulin Subjective Interval history: Patient day 1 s/p #1: Incision of bone cortex for osteomyelitis #2 metatarsectomy #5 metatarsal right foot #3 debridement of all necrotic tissue and bone right foot #4 adjacent tissue transfer with advancement flap plantarly per Patient resting comfortably on arrival. surgical dressing intact. There is strikethrough drainage noted on dressing. Patient states she has been up but placing weight to heel. Denies any fevers or chills. Denies any calf pain or sob WBC today 16.5 temp 97.9 Objective - Vital Signs Vital Signs: Vital Signs Temp Pulse Resp BP Pulse Ox 10/28/17 15:02 97.9 F 83 16 131/79 98 10/28/17 12:01 98.2 F 83 16 133/85 96 10/28/17 07:28 97.9 F 88 16 132/88 99 10/28/17 05:11 98.8 F 89 18 141/87 97 10/28/17 00:36 97.8 F 75 18 122/80 95 10/27/17 20:52 98.7 F 81 18 120/83 95 10/27/17 15:57 98.0 F 85 17 164/98 98 Intake and Output 10/27/17 10/28/17 10/28/17 23:59 07:59 15:59 Intake Total 200 / 200 1000 / 1000 540 / 540 Balance 200 / 200 1000 / 1000 540 / 540 Intake: IV Fluids 200 / 200 200 / 200 300 / 300 Cleocin Premix 600 MG/50 ML 600 100 / 100 mg In 50 ml @ 50 mls/hr IVPB Q8HR BIBI Rx#:[id number] Zosyn Premix 3.375 GM/200 ML 3. 200 / 200 200 / 200 200 / 200 375 gm In 200 ml @ 50 mls/hr IVPB Q8H BIBI Rx#:[id number] Oral 800 / 800 240 / 240 Other: Meal Lunch Percent of Meal Consumed 50% # Voids 1 1 Blood Glucose* [phone] - Exam Exam: Podiatry General Exam: General appearance: alert awake oriented X 3. Calm and pleasant, no acute distress.. Vascular: Pedal pulses +2/4 DP/PT , No evidence of cyanosis, pallor or rubor, Edema graded at 1+/4, Skin Temperature warm, No calf pain with manual compression. capillary refill time is immediate to digits. Neurologic: Sensation intact with moderate touch- hx of neuropathy Postop Exam: S/P #1: Incision of bone cortex for osteomyelitis #2 metatarsectomy #5 metatarsal right foot #3 debridement of all necrotic tissue and bone right foot #4 adjacent tissue transfer with advancement flap plantarly Sutures intact to incision line, no signs of dehiscence. There is a small amount of maceration surrounding surgical line, likely from small amount of post operative bleeding on dressing. No open area, no drainage, no odor, mild erythema, no streaking. Minimal edema. - Lab Result Diagrams: 10/28/17 04:53 10/28/17 04:53 Labs: Abnormal lab results WBC 16.5 K/mcL (4.3-11.1) H 10/28/17 04:53 MCV 79.4 fL (83.0-100.0) L 10/28/17 04:53 MCH 27.6 pg (28.0-33.3) L 10/28/17 04:53 Neutrophils # 13.4 K/mcL (1.6-8.9) H 10/28/17 04:53 ESR 104 mm/hr (0-15) H 10/26/17 17:47 PT 12.4 Seconds (9.4-12.1) H 10/26/17 17:47 Sodium 133 mEq/L (136-145) L 10/28/17 04:53 Glucose 285 mg/dL (70-105) H 10/28/17 04:53 POC Glucose 345 (58-89) H 10/28/17 12:04 Hemoglobin A1c 9.6 % (-5.6) H 10/26/17 17:47 C-Reactive Protein 81 mg/L (Less than 10) H 10/26/17 17:47 Microbiology, Last 48 Hours 10/27/17 11:30 Surgical Biopsy Culture - Preliminary Right Foot - VTE Documentation of Mechanical Device: Intermittent pneumatic compression device Consult Discharge Plan - Plan Referrals: Agustina Casey, EQUIPMENT OPERATOR [Primary Care Provider] -
--- NOTE | 2017-10-28 19:22 | Internal Med Progress Note ---
Date of Encounter: 10/28/17 Time of Encounter: 19:19 - Assessment and plan (1) Osteomyelitis of toe of right foot Current Visit: No Status: Acute Assessment and plan: Management per Podiatry and ID (2) Diabetes mellitus Current Visit: No Status: Chronic Assessment and plan: Increase basal insulin to 20 units tonight with 5 units with meals plus sliding scale. Goal blood glucose <180 Qualifiers: Diabetes mellitus type: type 2 Diabetes mellitus complication status: with skin complications Diabetes mellitus complication detail: with foot ulcer Diabetes mellitus moth exterminator insulin use: with group home use Qualified Code(s) : E11.621 - Type 2 diabetes mellitus with foot ulcer; L97.509 - Non-pressure chronic ulcer of other part of unspecified foot with unspecified severity; Z79.4 - retirement (current) use of insulin (3) Morbid obesity with BMI of 45.0-49.9, adult Current Visit: No Status: Chronic (4) Tobacco abuse Current Visit: No Status: Chronic - Subjective Interval history: Patient POD #1 status-post metatarsectomy of #5 metatarsal right foot, debridement, graft. She has no complaints, in no distress. - Constitutional Vitals: Temp Pulse Resp BP Pulse Ox 97.9 F 83 16 131/79 98 10/28/17 15:02 10/28/17 15:02 10/28/17 15:02 10/28/17 15:02 10/28/17 15:02 Exam: Gen: NAD CVS: RRR Lungs: CTAB Ext: no edema, r foot wrapped, clean dressing, no bleeding no drainage, wound vac Internal Medicine: Result - Labs CBC & Chem 7: 10/28/17 04:53 10/28/17 04:53 Labs: Short CBC 10/28/17 Range/Units 04:53 WBC 16.5 H (4.3-11.1) K/mcL Hgb 13.7 (11.5-15.4) g/dL Hct 39.4 (35.3-44.9) % Plt Count 322 (140-400) K/mcL Neutrophils # 13.4 H (1.6-8.9) K/mcL BMP 10/28/17 04:53 Sodium 133 L Potassium 4.0 Chloride 102 Carbon Dioxide 24 BUN 14 Creatinine 0.81 Glucose 285 H Calcium 8.6 - ABG Interpretation ABG results: PT/INR, D-dimer PT 12.4 Seconds (9.4-12.1) H 10/26/17 17:47 - VTE Documentation of Mechanical Device: Intermittent pneumatic compression device Consult Discharge Plan - Plan Referrals: Agustina Casey, VESTA [Primary Care Provider] -
[2017-10-28] MEDS ORDERED: Insulin DETEMIR 100 UNIT/ML X5UNITS SQ SCH (21:00)
[2017-10-28] MEDS: Insulin DETEMIR 100 UNIT/ML X5UNITS SQ SCH (23:02)
[2017-10-29] MEDS: Piperacillin/Tazobactam 3.375 GM/200 ML BAG IVPB SCH ×3 (05:06→20:40)
[2017-10-29 05:25] LABS: Basophils % 0.4 %; Eosinophils # 0.1 K/mcL (0.0-0.6); Eosinophils % 0.7 %; Hematocrit 36.3 % (35.3-44.9); Hemoglobin 12.2 g/dL (11.5-15.4); Immature Granulocytes % 0.4 % (0-4); Lymphocytes # 4.5 K/mcL (0.6-4.6); Lymphocytes % 39.6 %; Mean Corpuscular HGB Conc 33.6 g/dL (31.6-35.5); Mean Corpuscular Hemoglobin 27.2 pg (28.0-33.3); Mean Platelet Volume 9.9 fL (9.4-12.4); Monocytes # 0.7 K/mcL (0.0-1.3); Monocytes % 6.2 %; Platelet Count 277 K/mcL (140-400); Red Blood Count 4.48 M/mcL (3.82-4.97); Red Cell Distribution Width 12.9 % (11.5-14.5); Segmented Neutrophils % 52.7 %
[2017-10-29 05:49] LABS: BUN/Creatinine Ratio 19 (6-26); Blood Urea Nitrogen 16 mg/dL (6-20); Calcium 7.9 mg/dL (8.6-10.3); Carbon Dioxide 24 mEq/L (23-29); Chloride 105 mEq/L (98-107); Glucose 220 mg/dL (70-105); Osmolality,Calculated 286 (280-300); Potassium 3.6 mEq/L (3.5-5.1); Sodium 134 mEq/L (136-145); eGFR For African Americans > 60 (> 60); eGFR For Non-African Americans > 60 (> 60)
[2017-10-29] MEDS: Clindamycin 600 MG/50 ML 600 MG/50 ML IV.SOLN IVPB SCH ×2 (08:28→17:27)
[2017-10-29] MEDS: Insulin LISPRO 300 UNITS/3 ML VIAL SQ SCH ×7 (08:28→22:33)
--- NOTE | 2017-10-29 17:39 | Internal Med Progress Note ---
Date of Encounter: 10/29/17 Time of Encounter: 17:37 - Assessment and plan (1) Osteomyelitis of toe of right foot Current Visit: No Status: Acute Assessment and plan: Management per Podiatry and ID (2) Diabetes mellitus Current Visit: No Status: Chronic Assessment and plan: At goal of glucose <180 with basal insulin to 22 units HS with 5 units with meals plus sliding scale. 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 She has no complaints, in no distress. - Constitutional Vitals: Temp Pulse Resp BP Pulse Ox 98.3 F 74 16 124/76 99 10/29/17 14:30 10/29/17 14:30 10/29/17 14:30 10/29/17 14:30 10/29/17 14:30 - Head Head exam: Present: atraumatic, normocephalic - Eye Eye exam: Present: PERRL, conjuntiva pink, sclera anicteric Pupils: Present: PERRL - Neck Neck exam general surgery: Present: supple, trachea midline. Absent: lymphadenopathy - Respiratory Respiratory exam: Present: CTAB. Absent: accessory muscle use, rales, rhonchi, wheezes - Cardiovascular Cardiovascular exam: Present: RRR, +S1, +S2. Absent: diastolic murmur, gallop, rubs, systolic murmur - GI/Abdominal GI/Abdominal exam: Present: normal bowel sounds, soft, no peritoneal signs. Absent: distended, tenderness - Extremities Exam Extremities exam: Present: warm, radial pulses palpable and symmetrical. Absent : calf tenderness, cyanotic, pedal edema Additional comments: Right foot with wound vac on , clean at area of post op - Neurological Exam Neurological exam: Present: CN II-XII intact, oriented X3, no focal deficits. Absent: pronater drift, facial droop, speech deficit - Skin Skin exam: Present: dry, intact Internal Medicine: Result - Labs CBC & Chem 7: 10/29/17 04:54 10/29/17 04:54 Labs: Short CBC 10/29/17 Range/Units 04:54 WBC 11.4 H (4.3-11.1) K/mcL Hgb 12.2 D (11.5-15.4) g/dL Hct 36.3 (35.3-44.9) % Plt Count 277 (140-400) K/mcL Neutrophils # 6.0 (1.6-8.9) K/mcL BMP 10/29/17 04:54 Sodium 134 L Potassium 3.6 Chloride 105 Carbon Dioxide 24 BUN 16 Creatinine 0.83 Glucose 220 H Calcium 7.9 L - ABG Interpretation ABG results: PT/INR, D-dimer PT 12.4 Seconds (9.4-12.1) H 10/26/17 17:47 - VTE Documentation of Mechanical Device: Intermittent pneumatic compression device Consult Discharge Plan - Plan Referrals: Agustnia Casey, STAFFING SPECIALIST [Primary Care Provider] -
[2017-10-29] MEDS: Insulin DETEMIR 100 UNIT/ML X5UNITS SQ SCH (22:32)
[2017-10-30] MEDS: Clindamycin 600 MG/50 ML 600 MG/50 ML IV.SOLN IVPB SCH ×3 (00:56→17:14)
[2017-10-30] MEDS: Piperacillin/Tazobactam 3.375 GM/200 ML BAG IVPB SCH ×3 (04:44→20:36)
[2017-10-30 05:00] LABS: Basophils % 0.4 %; Eosinophils # 0.1 K/mcL (0.0-0.6); Hemoglobin 12.1 g/dL (11.5-15.4); Immature Granulocytes % 0.3 % (0-4); Lymphocytes # 4.4 K/mcL (0.6-4.6); Lymphocytes % 40.8 %; Mean Corpuscular HGB Conc 33.6 g/dL (31.6-35.5); Mean Corpuscular Hemoglobin 27.4 pg (28.0-33.3); Mean Corpuscular Volume 81.6 fL (83.0-100.0); Mean Platelet Volume 9.8 fL (9.4-12.4); Monocytes # 0.9 K/mcL (0.0-1.3); Monocytes % 8.1 %; Neutrophils # 5.3 K/mcL (1.6-8.9); Platelet Count 252 K/mcL (140-400); Red Blood Count 4.41 M/mcL (3.82-4.97); Red Cell Distribution Width 12.9 % (11.5-14.5); Segmented Neutrophils % 49.4 %
[2017-10-30 05:19] LABS: BUN/Creatinine Ratio 17 (6-26); Blood Urea Nitrogen 13 mg/dL (6-20); Calcium 8.3 mg/dL (8.6-10.3); Carbon Dioxide 25 mEq/L (23-29); Chloride 106 mEq/L (98-107); Glucose 142 mg/dL (70-105); Osmolality,Calculated 283 (280-300); Potassium 3.9 mEq/L (3.5-5.1); Sodium 135 mEq/L (136-145); eGFR For African Americans > 60 (> 60); eGFR For Non-African Americans > 60 (> 60)
[2017-10-30] MEDS: Insulin LISPRO 300 UNITS/3 ML VIAL SQ SCH ×7 (08:08→20:37)
--- NOTE | 2017-10-30 16:38 | Internal Med Progress Note ---
Date of Encounter: 10/30/17 Time of Encounter: 16:37 - Assessment and plan (1) Osteomyelitis of foot, right, acute Current Visit: Yes Status: Acute (2) Diabetes mellitus Current Visit: No Status: Chronic Assessment and plan: At goal of glucose <180 with basal insulin to 22 units HS with 5 units with meals plus sliding scale. Goal blood glucose <180 Qualifiers: Diabetes mellitus type: type 2 Diabetes mellitus complication status: with skin complications Diabetes mellitus complication detail: with foot ulcer Diabetes mellitus shelter insulin use: with superintendent terminal use Qualified Code(s) : E11.621 - Type 2 diabetes mellitus with foot ulcer; L97.509 - Non-pressure chronic ulcer of other part of unspecified foot with unspecified severity; Z79.4 - terminal manager (current) use of insulin (3) Tobacco abuse Current Visit: No Status: Chronic - Subjective Interval history: Patient status-post metatarsectomy of #5 metatarsal right foot, debridement, graft. She has no complaints, in no distress. - Constitutional Vitals: Temp Pulse Resp BP Pulse Ox 97.9 F 76 17 145/87 97 10/30/17 11:23 10/30/17 11:23 10/30/17 11:23 10/30/17 11:23 10/30/17 11:23 Exam: Gen: NAD CVS: RRR Lungs: CTAB Ext: no edema, r foot wrapped, clean dressing, no bleeding no drainage, wound vac Internal Medicine: Result - Labs CBC & Chem 7: 10/30/17 04:45 10/30/17 04:45 Labs: Short CBC 10/30/17 Range/Units 04:45 WBC 10.8 (4.3-11.1) K/mcL Hgb 12.1 (11.5-15.4) g/dL Hct 36.0 (35.3-44.9) % Plt Count 252 (140-400) K/mcL Neutrophils # 5.3 (1.6-8.9) K/mcL BMP 10/30/17 04:45 Sodium 135 L Potassium 3.9 Chloride 106 Carbon Dioxide 25 BUN 13 Creatinine 0.75 Glucose 142 H Calcium 8.3 L - ABG Interpretation ABG results: PT/INR, D-dimer PT 12.4 Seconds (9.4-12.1) H 10/26/17 17:47 - VTE Documentation of Mechanical Device: Intermittent pneumatic compression device Consult Discharge Plan - Plan Referrals: Agustina Casey CNP [Primary Care Provider] -
--- NOTE | 2017-10-30 17:09 | Podiatry Progress Note ---
Date of Encounter: 10/29/17 Time of Encounter: 17:06 - Assessment and Plan (1) Osteomyelitis of toe of right foot Current Visit: No Status: Acute We will continue the previous treatment plan and await culture results. Subjective Principal diagnosis: Foot wound Interval history: Patient relates overall improvement in the last few days. Patient denies any new complaints. Patient seen at the bedside resting comfortably. Objective - Vital Signs Vital Signs: Vital Signs Temp Pulse Resp BP Pulse Ox 10/30/17 16:50 98.0 F 75 17 123/87 93 10/30/17 11:23 97.9 F 76 17 145/87 97 10/30/17 08:00 98.2 F 75 14 131/88 97 10/30/17 00:00 97.7 F 71 17 111/77 99 10/29/17 20:00 97.9 F 74 17 113/76 98 Intake and Output 10/30/17 10/30/17 10/30/17 07:59 15:59 23:59 Intake Total 250 / 250 970 / 970 Balance 250 / 250 970 / 970 Intake: IV Fluids 250 / 250 250 / 250 Cleocin Premix 600 MG/50 ML 600 50 / 50 50 / 50 mg In 50 ml @ 50 mls/hr IVPB Q8HR BIBI Rx#:[id number] Zosyn Premix 3.375 GM/200 ML 3. 200 / 200 200 / 200 375 gm In 200 ml @ 50 mls/hr IVPB Q8H BIBI Rx#:[id number] Oral 720 / 720 Other: Meal Lunch Percent of Meal Consumed 100% # Voids 2 3 Blood Glucose* 136 204 - Exam Exam: No increased erythema, capillary fill time intact. Sensation consistent with her exam. Wound appears to be healing well. No new open lesions. - Lab Result Diagrams: 10/30/17 04:45 10/30/17 04:45 Labs: Abnormal lab results MCV 81.6 fL (83.0-100.0) L 10/30/17 04:45 MCH 27.4 pg (28.0-33.3) L 10/30/17 04:45 ESR 104 mm/hr (0-15) H 10/26/17 17:47 PT 12.4 Seconds (9.4-12.1) H 10/26/17 17:47 Sodium 135 mEq/L (136-145) L 10/30/17 04:45 Glucose 142 mg/dL (70-105) H 10/30/17 04:45 POC Glucose 204 (58-89) H 10/30/17 16:53 Hemoglobin A1c 9.6 % (-5.6) H 10/26/17 17:47 Calcium 8.3 mg/dL (8.6-10.3) L 10/30/17 04:45 C-Reactive Protein 81 mg/L (Less than 10) H 10/26/17 17:47 Microbiology, Last 48 Hours 10/27/17 11:30 Surgical Biopsy Culture - Final Right Foot Citrobacter koseri Enterococcus species - VTE Documentation of Mechanical Device: Intermittent pneumatic compression device Consult Discharge Plan - Plan Referrals: Agustina Casey CNP [Primary Care Provider] -
--- NOTE | 2017-10-30 17:12 | Podiatry Progress Note ---
Date of Encounter: 10/30/17 Time of Encounter: 17:10 - Assessment and Plan (1) Osteomyelitis of toe of right foot Current Visit: No Status: Acute Culture results returned today and the antibiotic was changed from clindamycin to Cipro. The other antibiotics are appropriate. If infectious disease feels as though more appropriate antibiotics are needed we appreciate any recommendations. We will continue to monitor the patient's white blood cell count. Subjective Principal diagnosis: Foot wound Interval history: Patient relates overall improvement in the last few days. Patient denies any new complaints. Patient seen at the bedside resting comfortably. Objective - Vital Signs Vital Signs: Vital Signs Temp Pulse Resp BP Pulse Ox 10/30/17 16:50 98.0 F 75 17 123/87 93 10/30/17 11:23 97.9 F 76 17 145/87 97 10/30/17 08:00 98.2 F 75 14 131/88 97 10/30/17 00:00 97.7 F 71 17 111/77 99 10/29/17 20:00 97.9 F 74 17 113/76 98 Intake and Output 10/30/17 10/30/17 10/30/17 07:59 15:59 23:59 Intake Total 250 / 250 970 / 970 Balance 250 / 250 970 / 970 Intake: IV Fluids 250 / 250 250 / 250 Cleocin Premix 600 MG/50 ML 600 50 / 50 50 / 50 mg In 50 ml @ 50 mls/hr IVPB Q8HR BIBI Rx#:[id number] Zosyn Premix 3.375 GM/200 ML 3. 200 / 200 200 / 200 375 gm In 200 ml @ 50 mls/hr IVPB Q8H BIBI Rx#:[id number] Oral 720 / 720 Other: Meal Lunch Percent of Meal Consumed 100% # Voids 2 3 Blood Glucose* 136 204 - Exam Exam: Podiatry General Exam: General appearance: alert awake oriented X 3. Calm and pleasant, no acute distress.. Vascular: Pedal pulses +2/4 DP/PT , No evidence of cyanosis, pallor or rubor, Edema graded at 1+/4, Skin Temperature warm, No calf pain with manual compression. capillary refill time is immediate to digits. Neurologic: Sensation intact with moderate touch- hx of neuropathy Sutures intact to incision line, no signs of dehiscence. There is a small amount of maceration surrounding surgical line, likely from small amount of post operative bleeding on dressing. No open area, no drainage, no odor, less erythema, no streaking. Minimal edema. - Lab Result Diagrams: 10/30/17 04:45 10/30/17 04:45 Labs: Abnormal lab results MCV 81.6 fL (83.0-100.0) L 10/30/17 04:45 MCH 27.4 pg (28.0-33.3) L 10/30/17 04:45 ESR 104 mm/hr (0-15) H 10/26/17 17:47 PT 12.4 Seconds (9.4-12.1) H 10/26/17 17:47 Sodium 135 mEq/L (136-145) L 10/30/17 04:45 Glucose 142 mg/dL (70-105) H 10/30/17 04:45 POC Glucose 204 (58-89) H 10/30/17 16:53 Hemoglobin A1c 9.6 % (-5.6) H 10/26/17 17:47 Calcium 8.3 mg/dL (8.6-10.3) L 10/30/17 04:45 C-Reactive Protein 81 mg/L (Less than 10) H 10/26/17 17:47 Microbiology, Last 48 Hours 10/27/17 11:30 Surgical Biopsy Culture - Final Right Foot Citrobacter koseri Enterococcus species - VTE Documentation of Mechanical Device: Intermittent pneumatic compression device Consult Discharge Plan - Plan Referrals: Agustina Casey, PRINCIPAL SYSTEMS ARCHITECT [Primary Care Provider] -
[2017-10-30] MEDS: Insulin DETEMIR 100 UNIT/ML X5UNITS SQ SCH (20:37)
[2017-10-31] MEDS: Piperacillin/Tazobactam 3.375 GM/200 ML BAG IVPB SCH ×2 (05:25→12:57)
[2017-10-31] MEDS: Insulin LISPRO 300 UNITS/3 ML VIAL SQ SCH ×7 (08:39→21:59)
--- NOTE | 2017-10-31 13:17 | Discharge Summary ---
Date of Encounter: 11/03/17 Time of Encounter: 12:30 - Discharge Diagnosis (1) Osteomyelitis of toe of right foot Priority: Primary Status: Acute (2) Diabetes mellitus Priority: Secondary Status: Chronic Qualifiers: Diabetes mellitus type: type 2 Diabetes mellitus complication status: with skin complications Diabetes mellitus complication detail: with foot ulcer Diabetes mellitus longterm insulin use: with intermediate teacher use Qualified Code(s) : E11.621 - Type 2 diabetes mellitus with foot ulcer; L97.509 - Non-pressure chronic ulcer of other part of unspecified foot with unspecified severity; 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 (3) Morbid obesity with BMI of 45.0-49.9, adult Priority: Secondary Status: Chronic (4) Tobacco abuse Priority: Secondary Status: Chronic (5) Gangrene of toe Priority: Primary Status: Acute - Discharge Medications Home Medications: BuPROPion SR (12 HR) [Wellbutrin SR] 150 mg PO BID 10/03/15 [History] Insulin Degludec [Tresiba Flextouch U-100] 0 unit SQ DAILY 04/13/17 [History] Liraglutide [Victoza 2-Sameer] 0 mg SQ DAILY 04/13/17 [History] hydrOXYzine HCl [Hydroxyzine HCl] 25 - 50 mg PO TID PRN 04/13/17 [History] Cyclobenzaprine [Flexeril] 5 mg PO TID PRN 10/27/17 [History] Allergies/Adverse Reactions: 3 Allergy/AdvReac Type Severity Reaction Status Date / Time No Known Allergies Allergy Unverified 06/05/15 08:07 Labs on day of discharge: Labs from last 24 hours 10/30/17 10/30/17 19:29 16:53 POC Glucose 163 H 204 H Preliminary micro results at discharge 10/27/17 11:30 Anaerobic Culture - Preliminary Right Foot At this time, no anaerobic growth is present. The culture will be finalized after 5 days of incubation. - Impressions ITS Impressions Foot X-Ray 10/26/17 16:49 IMPRESSION: Post amputation changes at the 5th toe. Irregularity of the distal portion of the 5th metatarsal is noted. This is indeterminate may be postoperative, however osteomyelitis is another consideration D/ / Chava Jarquin / Chava Jarquin Interpreting Provider: Chava Jarquin Foot X-Ray 10/27/17 14:08 IMPRESSION: Postoperative changes correlating with further resection of the 5th ray to the level of the proximal 5th metatarsal as above. No evidence for acute complication. D/ / 10/27/2017 15:51:27 Shaq Almeida MD / chaitanya Interpreting Provider: Shaq Almeida MD Date of admission: 10/26/17 16:42 Primary care physician: Agustina Casey CNP Consults: 10/26/17 16:48 Consult to Hospitalist [CONS] Routine Consulting Provider: Hospitalist Lico Reason for Consult: Diabetes mellitus type 2 with multiple comorbidities Time Notified: 16:45 Call Completed: Yes 10/26/17 18:02 Consult to Pastoral Services [CONS] Routine Comment: 10/28/17 13:05 Consult to Invasive Line Access Team [CONS] Routine Reason for Consult: Picc Line Insertion for Outpt atbs. Line Type: PICC 10/28/17 13:28 Consult to Advertising Vice President [CONS] Routine Reason for SW Consult: d/c planning 10/28/17 13:56 Consult to Infectious Diseases [CONS] Routine Consulting Provider: Infectious Disease Liv Reason for Consult: Called by Dr. Beebe. Foot infection Time Notified: 13:56 Call Completed: Yes Discharging clinician: Marek Jaimes Anticipated date of discharge: 10/25/17 - Patient Status Disposition: Home Health Service Condition: Fair Functional capacity at discharge: uses cane/walker Overall status at discharge: patient is progressing back to baseline - Ambulatory Orders Ambulatory Orders: Misc. Order2 Time Frame: 1 Day, Facility: [facility], Location: Wound Care - Discharge Instructions Follow Up With: Agustina Casey CNP [Primary Care Provider] - Gil Beebe DPM [Partnered Physician] - 11/09/17 Additional Instructions: Patient will be discharged with IV Ampicillin 12 gm continuous infusions and IV Cefepime 2 gm every 12 hours. Home health care to perform daily dressing changes as ordered. Cleanse right foot daily with mild soap and water, pat dry, apply Betadine moistened gauze to the incision line of the right foot with dry sterile gauze, wrapped with Kerlix from the toes to the tibia of the right lower extremity with an zach wrap from toes to tibia overlying kerlix. Change dressing daily. Remain non weight bearing to RLE, use walker, keep right foot protected with post op shoe. Started back on Victoza and Tresiba A1c was 9.6 on 10/26/17. PCP will need to increase dosing or adding third agent for tighter control - Diet and Activity Activity: other (Non weight bearing to RLE. ) Diet: diabetic diet - Hospital Course Hospital course: Ms. Sellers is an 46 year old female who was admitted on 10/26/17 for a diabetic foot ulcer right, osteomyelitis right foot 5th metatarsal. Patient has a medical history significant for DM, HTN, anxiety, and depression. Patient presented to wound care clinic with a recurrent wound on the plantar aspect of the right foot distal lateral aspect of the fifth metatarsal. Probing the bone was positive. The patient had spreading cellulitis from the wound proximally plantarly and medially. Patient was admitted for intravenous antibiotics and surgical debridement of the wound to control the infection and to determine the extent of the infection. Hospitalist service was consulted for management of comorbidities. Infectious disease was consulted for antibiotic therapy recommendations. Patient was taken to the OR for Incision of bone cortex for osteomyelitis, metatarsectomy #5 metatarsal right foot, debridement of all necrotic tissue and bone right foot, adjacent tissue transfer with advancement flap plantarly on 10/27/[address] Beebe. Intraop cultures isolated Citrobacter Koseri and Enterococcus species. ESR: 104, CRP: 81. Patients condition has improved and patient will be discharged to home with IV antibiotic therapy and wound care. Patient to receive IV Ampicillin 12 gm continuous and IV Cefepime 2 gm IV BID for a duration of 6 weeks.Patient scheduled to f/u with ID and Dr. Beebe in wound care. Patient had a PICC line placed to the RUE. Wound care to include - Time Spent with Patient Total time spent providing and/or coordinating discharge services: - VTE Documentation of Mechanical Device: Intermittent pneumatic compression device
--- NOTE | 2017-10-31 14:44 | Infectious Disease Progress No ---
Date of Encounter: 10/31/17 Time of Encounter: 14:39 - Assessment and Plan (1) Osteomyelitis of foot, right, acute Current Visit: Yes Status: Acute Initial foot infection in March status post I&D by Dr. Beebe Recurrence of infection status post I&D on 10/26/17 with osteomyelitis and gangrene. Intra-Op cultures positive for gram-positive cocci and gram-negative rods Final ID positive for Citrobacter and ampicillin sensitive enterococcal species Patient was started on empiric Zosyn and clindamycin. After long discussion with the patient that, I explained to her the fluoroquinolones with her diabetes could cause problems with her tendons, I spent to her the Bactrim can be harsh on the kidneys, we decided to go with cefepime and Unasyn to cover both the Citrobacter and enterococcal species it. I wrote the prescriptions and for weekly labs including CBC, BUN and creatinine , ESR and CRP. Patient follow-up with us in 2 weeks, I told her we will try to put her on the same day that she has a follow-up with Dr. Beebe in clinic since she lives in [place]. I discussed at length with nursing staff and I spoke with Ruth the rehabilitation caseworker who is trying to set things up. is upset because he wants to stick the patient home today and explained to him how the logistics of waiting for the cultures to finalize and how we need to make sure everything set up before she gets home. Status post PICC line placement in the right upper extremity Duration of treatment 6 weeks (2) JIGNESH (acute kidney injury) Current Visit: No Status: Acute On previous admission secondary to vancomycin toxicity. Currently has no symptoms and creatinine is normal. (3) Gangrene Current Visit: No Status: Acute Status post amputation (4) Diabetes mellitus Current Visit: No Status: Chronic Poorly controlled Most recent A1c was elevated Patient will need adequate glucose control for better outcome I discussed with her at length the importance of adequate glucose control and she seems to understand. 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 Appears to be doing well. He is to go home. and daughter at bedside. Patient's culture were positive for Citrobacter and enterococcal species. Patient denies any headache no chest pain no shortness of breath. Denies any diarrhea. Denies any yeast infection. Denies any oral thrush. Denies any urinary symptoms. Blood sugar has been adequately controlled. Infect Dis PN-Objective Data - Labs CBC & Chem 7: 10/30/17 04:45 10/30/17 04:45 Labs: Laboratory Results - last 24 hr 10/30/17 10/30/17 16:53 19:29 POC Glucose 204 H 163 H Cultures: Cultures 10/27/17 11:30 Anaerobic Culture - Preliminary Right Foot At this time, no anaerobic growth is present. The culture will be finalized after 5 days of incubation. 10/27/17 11:30 Surgical Biopsy Culture - Final Right Foot Citrobacter koseri Enterococcus species Exam - Constitutional Vitals: Temp Pulse Resp BP Pulse Ox 97.9 F 98 18 129/81 96 10/31/17 12:09 10/31/17 12:09 10/31/17 12:09 10/31/17 12:09 10/31/17 12:09 General appearance: no acute distress, no febrile - Head Head exam: Present: atraumatic, normocephalic - Neck Neck exam: Present: full ROM. Absent: meningismus - Respiratory Respiratory exam: Present: CTAB. Absent: rhonchi, wheezes - Cardiovascular Cardiovascular exam: Present: RRR, +S1, +S2 - GI/Abdominal GI/Abdominal exam: Present: normal bowel sounds, soft. Absent: tenderness - Extremities Exam Additional comments: Bilateral lower extremity venous stasis. Right foot surgically wrapped with a wound VAC. - VTE Documentation of Mechanical Device: Intermittent pneumatic compression device Consult Discharge Plan - Plan Referrals: Agustina Casey CNP [Primary Care Provider] - Gil Beebe DPM [Partnered Physician] - 11/09/17
[2017-10-31] MEDS ORDERED: AMPICILLIN IVPB SCH (16:00)
[2017-10-31] MEDS ORDERED: SODIUM CHLORIDE 0.9% IVPB SCH (16:00)
[2017-10-31] MEDS ORDERED: Ampicillin/Sulbactam 3,000 MG in 0.9 % Sodium Chloride Mini Bag 100 ML IVPB SCH (18:00)
[2017-10-31] MEDS: Cefepime HCl 2,000 MG in Water for inj. (sterile) 20 ML 20 ML IVP SCH (18:01)
--- NOTE | 2017-10-31 18:27 | Internal Med Progress Note ---
Date of Encounter: 10/31/17 Time of Encounter: 18:26 - Assessment and plan (1) Osteomyelitis of foot, right, acute Current Visit: Yes Status: Acute (2) Diabetes mellitus Current Visit: No Status: Chronic Assessment and plan: At goal of glucose <180 with basal insulin to 22 units HS with 5 units with meals plus sliding scale. Goal blood glucose <180 Qualifiers: Diabetes mellitus type: type 2 Diabetes mellitus complication status: with skin complications Diabetes mellitus complication detail: with foot ulcer Diabetes mellitus penitentiary insulin use: with business initiatives manager use Qualified Code(s) : E11.621 - Type 2 diabetes mellitus with foot ulcer; L97.509 - Non-pressure chronic ulcer of other part of unspecified foot with unspecified severity; Z79.4 - registered nurse practitioner (current) use of insulin (3) Tobacco abuse Current Visit: No Status: Chronic - Subjective Interval history: Patient status-post metatarsectomy of #5 metatarsal right foot, debridement, graft. She has no complaints, in no distress. - Constitutional Vitals: Temp Pulse Resp BP Pulse Ox 98.2 F 73 14 120/85 96 10/31/17 16:21 10/31/17 16:21 10/31/17 16:21 10/31/17 16:21 10/31/17 16:21 Exam: Gen: NAD CVS: RRR Lungs: CTAB Ext: no edema, r foot wrapped, clean dressing, no bleeding no drainage, wound vac Internal Medicine: Result - Labs CBC & Chem 7: 10/30/17 04:45 10/30/17 04:45 - ABG Interpretation ABG results: PT/INR, D-dimer PT 12.4 Seconds (9.4-12.1) H 10/26/17 17:47 - VTE Documentation of Mechanical Device: Intermittent pneumatic compression device Consult Discharge Plan - Plan Additional Instructions: Patient will be discharged with IV Ampicillin 12 gm continuous infusions and IV Cefepime 2 gm every 12 hours. Home health care to perform daily dressing changes as ordered. Cleanse right foot daily with mild soap and water, pat dry, apply Betadine moistened gauze to the incision line of the right foot with dry sterile gauze, wrapped with Kerlix from the toes to the tibia of the right lower extremity with an zach wrap from toes to tibia overlying kerlix. Change dressing daily. Remain non weight bearing to RLE, use walker, keep right foot protected with post op shoe. Referrals: Agsutina Casey CNP [Primary Care Provider] - Gil Beebe DPM [Partnered Physician] - 11/09/17
[2017-10-31] MEDS: Insulin DETEMIR 100 UNIT/ML X5UNITS SQ SCH (21:59)
[2017-11-01] MEDS: Cefepime HCl 2,000 MG in Water for inj. (sterile) 20 ML 20 ML IVP SCH (05:04)
[2017-11-01 07:00] VITALS: BP 126/82
[2017-11-01] MEDS: Insulin LISPRO 300 UNITS/3 ML VIAL SQ SCH ×2 (08:29)
--- NOTE | 2017-11-01 09:05 | Internal Med Progress Note ---
<Joe Wyatt - Last Filed: 11/01/17 13:03> Date of Encounter: 11/01/17 Time of Encounter: 09:05 - Assessment and plan (1) Osteomyelitis of toe of right foot Status: Acute Assessment and plan: S/p Incision of bone cortex for osteomyelitis, metatarsectomy #5 metatarsal right foot, debridement of all necrotic tissue and bone right foot, adjacent tissue transfer with advancement flap plantarly on 10/27/17 Surgical culture showing Citrobacter and Enterococcus ID recommends Ampicillin and Cefepime - Rx already sent and approved with PICC line placed WBC normal VSS Discharge home today (2) Diabetes mellitus Status: Chronic Assessment and plan: At goal of glucose <180 with basal insulin to 22 units HS with 5 units with meals plus sliding scale. Goal blood glucose <180 Will will discharged home today and started back on Victoza and Tresiba A1c was 9.6 on 10/26/17. PCP will need to increase dosing or adding third agent for tighter control (3) Morbid obesity with BMI of 45.0-49.9, adult Status: Chronic (4) Tobacco abuse Status: Chronic Assessment and plan: Counseled on the importance of smoking cessation for wound healing. - Subjective Interval history: Patient is admitted for osteomyelitis of the right foot. Plan for d/c per podiatry today Patient is resting comfortably in bed this morning No events overnight per nursing Denies any fevers, chills, n/v, CP, SOB, palpitations or GI issues - Constitutional Vitals: Temp Pulse Resp BP Pulse Ox 97.3 F L 75 18 126/82 96 11/01/17 06:59 11/01/17 06:59 11/01/17 06:59 11/01/17 06:59 11/01/17 08:35 General appearance: Present: A&O X 3, no acute distress, answers questions appropriately - Head Head exam: Present: atraumatic, normocephalic - Eye Eye exam: Present: EOMI, normal appearance, conjuntiva pink, sclera anicteric - ENT ENT exam: Present: mucous membranes moist - Neck Neck exam general surgery: Present: supple, trachea midline - Respiratory Respiratory exam: Present: CTAB. Absent: respiratory distress - Cardiovascular Cardiovascular exam: Present: RRR, +S1, +S2 - GI/Abdominal GI/Abdominal exam: Present: normal bowel sounds, soft. Absent: tenderness - Extremities Exam Extremities exam: Present: warm. Absent: pedal edema, tenderness - Incison Incision: Present: clean and dry (zach wrap intact abour RLE without any shadowing), intact - Neurological Exam Neurological exam: Present: alert, oriented X3, no focal deficits - Psychiatric Psychiatric exam: Present: normal affect, normal mood - Skin Skin exam: Present: dry, warm Internal Medicine: Result - Labs CBC & Chem 7: 10/30/17 04:45 10/30/17 04:45 - ABG Interpretation ABG results: PT/INR, D-dimer PT 12.4 Seconds (9.4-12.1) H 10/26/17 17:47 - VTE Documentation of Mechanical Device: Intermittent pneumatic compression device Consult Discharge Plan - Plan Additional Instructions: Patient will be discharged with IV Ampicillin 12 gm continuous infusions and IV Cefepime 2 gm every 12 hours. Home health care to perform daily dressing changes as ordered. Cleanse right foot daily with mild soap and water, pat dry, apply Betadine moistened gauze to the incision line of the right foot with dry sterile gauze, wrapped with Kerlix from the toes to the tibia of the right lower extremity with an zach wrap from toes to tibia overlying kerlix. Change dressing daily. Remain non weight bearing to RLE, use walker, keep right foot protected with post op shoe. Started back on Victoza and Tresiba A1c was 9.6 on 10/26/17. PCP will need to increase dosing or adding third agent for tighter control Referrals: Agustina Casey CNP [Primary Care Provider] - Gil Beebe DPM [Partnered Physician] - 11/09/17 <Radha Lujan - Last Filed: 11/02/17 18:47> Date of Encounter: 11/01/17 - Constitutional Vitals: Temp Pulse Resp BP Pulse Ox 97.3 F L 75 18 126/82 96 11/01/17 06:59 11/01/17 06:59 11/01/17 06:59 11/01/17 06:59 11/01/17 08:35 Internal Medicine: Result - Labs CBC & Chem 7: 10/30/17 04:45 10/30/17 04:45 - ABG Interpretation ABG results: PT/INR, D-dimer PT 12.4 Seconds (9.4-12.1) H 10/26/17 17:47 - Attending Attestation I examined this patient and my medical decision-making was reviewed with the Resident Physician Dr. wyatt. I agree with the documented findings, disposition and treatment plan as described except to the extent set forth below. Ms. Sellers is a 47 year old female with history of diabetes presented to wound care clinic for an open wound for two weeks. She has history of diabetic foot infection with loss of fifth toe because of gangrene. She was sent in for the recurrent ulcer for IV antibitocs and surgical debridement of wound. She did undergo for surgical debridement. Her wound cx growing Citro bacter and enterococcus.. ID recommend Ampicillin and Cefepime terminal press operator IV abx. Gen: A, A, O x3 Chest: Diminished BS b/l basal region a/p 1. Rt foot osteomyelitis cont Abx as per ID recommendation 2. DM2 moderately controlled BS counseled about diet modification also requested the pt to f/u with PCP to adjust her Victoza doses
--- NOTE | 2017-11-01 10:17 | Infectious Disease Progress No ---
Date of Encounter: 11/01/17 Time of Encounter: 10:15 - Assessment and Plan (1) Osteomyelitis of foot, right, acute Current Visit: Yes Status: Acute Initial foot infection in March status post I&D by Dr. Beebe Recurrence of infection status post I&D on 10/26/17 with osteomyelitis and gangrene. Intra-Op cultures positive for gram-positive cocci and gram-negative rods Final ID positive for Citrobacter and ampicillin sensitive enterococcal species Patient was started on empiric Zosyn and clindamycin. After long discussion with the patient that, I explained to her the fluoroquinolones with her diabetes could cause problems with her tendons, I spent to her the Bactrim can be harsh on the kidneys, we decided to go with cefepime and Unasyn to cover both the Citrobacter and enterococcal species it. I wrote the prescriptions and for weekly labs including CBC, BUN and creatinine , ESR and CRP. Patient follow-up with us in 2 weeks, I told her we will try to put her on the same day that she has a follow-up with Dr. Beebe in clinic since she lives in [place]. I discussed at length with nursing staff and I spoke with Ruth the case mgr who is trying to set things up. is upset because he wants to stick the patient home today and explained to him how the logistics of waiting for the cultures to finalize and how we need to make sure everything set up before she gets home. Status post PICC line placement in the right upper extremity Duration of treatment 6 weeks (2) JIGNESH (acute kidney injury) Current Visit: No Status: Acute On previous admission secondary to vancomycin toxicity. Currently has no symptoms and creatinine is normal. (3) Gangrene Current Visit: No Status: Acute Status post amputation (4) Diabetes mellitus Current Visit: No Status: Chronic Poorly controlled Most recent A1c was elevated Patient will need adequate glucose control for better outcome I discussed with her at length the importance of adequate glucose control and she seems to understand. 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 doing well clinically, has no complaints. good appetite. no chest pain no shortness of breath no diarrhea no urinary symptoms no oral thrush. blood sugar controlled Infect Dis PN-Objective Data - Labs CBC & Chem 7: 10/30/17 04:45 10/30/17 04:45 Labs: Laboratory Results - last 24 hr 10/31/17 10/31/17 10/31/17 07:25 12:07 16:23 POC Glucose 150 H 151 H 161 H 10/31/17 20:28 POC Glucose 125 H Cultures: Cultures 10/27/17 11:30 Anaerobic Culture - Preliminary Right Foot At this time, no anaerobic growth is present. The culture will be finalized after 5 days of incubation. 10/27/17 11:30 Surgical Biopsy Culture - Final Right Foot Citrobacter koseri Enterococcus species Exam - Constitutional Vitals: Temp Pulse Resp BP Pulse Ox 97.3 F L 75 18 126/82 96 11/01/17 06:59 11/01/17 06:59 11/01/17 06:59 11/01/17 06:59 11/01/17 08:35 General appearance: no acute distress, no febrile - Head Head exam: Present: atraumatic, normocephalic - Neck Neck exam: Present: full ROM. Absent: meningismus - Respiratory Respiratory exam: Present: CTAB. Absent: rhonchi, wheezes - Cardiovascular Cardiovascular exam: Present: RRR, +S1, +S2. Absent: systolic murmur - GI/Abdominal GI/Abdominal exam: Present: normal bowel sounds, soft. Absent: tenderness - Extremities Exam Additional comments: bilateral lower ext venous stasis. surgical wound with wound vac - VTE Documentation of Mechanical Device: Intermittent pneumatic compression device Consult Discharge Plan - Plan Additional Instructions: Patient will be discharged with IV Ampicillin 12 gm continuous infusions and IV Cefepime 2 gm every 12 hours. Home health care to perform daily dressing changes as ordered. Cleanse right foot daily with mild soap and water, pat dry, apply Betadine moistened gauze to the incision line of the right foot with dry sterile gauze, wrapped with Kerlix from the toes to the tibia of the right lower extremity with an zach wrap from toes to tibia overlying kerlix. Change dressing daily. Remain non weight bearing to RLE, use walker, keep right foot protected with post op shoe. Started back on Victoza and Tresiba A1c was 9.6 on 10/26/17. PCP will need to increase dosing or adding third agent for tighter control Referrals: Agustina Casey CNP [Primary Care Provider] - Gil Beebe DPM [Partnered Physician] - 11/09/17
[2017-11-01] MEDS ORDERED: FLUARIX QUAD 2017-18 36MOS UP/PF 0.5 ML SYRINGE IM ONE (11:18)
--- NOTE | 2017-11-01 13:00 | Physician Discharge Referral ---
Home Health/Hosp Referral Info Transfer to: Home Health Attending Provider: concepción Provider in Charge Post Discharge: Other (Concepción) - Diagnosis (1) Osteomyelitis of foot, right, acute Priority: Primary Status: Acute - Respiratory Orders Smoking Cessation: Smoking cessation has been advised. For more information, call the [place] Tobacco Quit Line at 6-143-BABU-NOW. - Dressing/Wound Care Site: #1 right foot. Gently cleansed with mild soap warm water paint incision with Betadine. Apply dry 4 x 4's and Kerlix for bulky dressing. This is to be done daily. Type of Dressing/Treatments w/Frequency: #1: Betadine applied to right foot surgical incision followed by dry 4 x 4's and Kerlix anchor with Medipore tape - Diet/Nutrition Diet/Nutrition: List: #1: Diabetic diet 1800 юлия daily high-protein - Activity Activity Orders: Up ad janie (Patient is to use either crutches or knee roller or walker and not to place any weight whatsoever on the right foot at any time for any reason.) - Services Needed Following services are medically necessary services: Nursing, Home Infusion Home Care Orders: #1: Antibiotics per infectious disease recommendations per PICC line/ - Transfer Medications Home Medications: BuPROPion SR (12 HR) [Wellbutrin SR] 150 mg PO BID 10/03/15 [History] Insulin Degludec [Tresiba Flextouch U-100] 0 unit SQ DAILY 04/13/17 [History] Liraglutide [Victoza 2-Sameer] 0 mg SQ DAILY 04/13/17 [History] hydrOXYzine HCl [Hydroxyzine HCl] 25 - 50 mg PO TID PRN 04/13/17 [History] Cyclobenzaprine [Flexeril] 5 mg PO TID PRN 10/27/17 [History] Allergies/Adverse Reactions: 3 Allergy/AdvReac Type Severity Reaction Status Date / Time No Known Allergies Allergy Unverified 06/05/15 08:07 Certification: Further, I certify that my clinical findings support that this patient is homebound (i.e. absences from home require considerable and taxing effort and are for medical reasons or roman catholic services or infrequently or short duration when for other reasons) because: Homebound Reason: Patient requires assistance of a person or device to safely leave home Attestation: My signature below is to certify that this patient is under my care and that I, or nurse practitioner, or a physician's financial planning assistant working with me, has a face-to -face encounter with this patient.
--- NOTE | 2017-11-01 13:07 | Discharge Summary ---
Date of Encounter: 11/01/17 Time of Encounter: 13:04 - Discharge Diagnosis (1) Osteomyelitis of foot, right, acute Priority: Primary Status: Acute - Discharge Medications Home Medications: BuPROPion SR (12 HR) [Wellbutrin SR] 150 mg PO BID 10/03/15 [History] Insulin Degludec [Tresiba Flextouch U-100] 0 unit SQ DAILY 04/13/17 [History] Liraglutide [Victoza 2-Sameer] 0 mg SQ DAILY 04/13/17 [History] hydrOXYzine HCl [Hydroxyzine HCl] 25 - 50 mg PO TID PRN 04/13/17 [History] Cyclobenzaprine [Flexeril] 5 mg PO TID PRN 10/27/17 [History] Allergies/Adverse Reactions: 3 Allergy/AdvReac Type Severity Reaction Status Date / Time No Known Allergies Allergy Unverified 06/05/15 08:07 Procedures and tests throughout hospitalization: #1 radiographs of right foot #2 surgical intervention please see operative note #3 placement of PICC line Labs on day of discharge: Labs from last 24 hours 10/31/17 10/31/17 10/31/17 20:28 16:23 12:07 POC Glucose 125 H 161 H 151 H 10/31/17 07:25 POC Glucose 150 H Preliminary micro results at discharge 10/27/17 11:30 Anaerobic Culture - Preliminary Right Foot At this time, no anaerobic growth is present. The culture will be finalized after 5 days of incubation. - Impressions ITS Impressions Foot X-Ray 10/26/17 16:49 IMPRESSION: Post amputation changes at the 5th toe. Irregularity of the distal portion of the 5th metatarsal is noted. This is indeterminate may be postoperative, however osteomyelitis is another consideration D/ / Chava Jarquin / Chava Jarquin Interpreting Provider: Chava Jarquin Foot X-Ray 10/27/17 14:08 IMPRESSION: Postoperative changes correlating with further resection of the 5th ray to the level of the proximal 5th metatarsal as above. No evidence for acute complication. D/ / 10/27/2017 15:51:27 Shaq Almeida MD / chaitanya Interpreting Provider: Shaq Almeida MD Date of admission: 10/26/17 16:42 Primary care physician: Agustina Casey CNP Consults: 10/26/17 16:48 Consult to Hospitalist [CONS] Routine Consulting Provider: Hospitalist [place] Reason for Consult: Diabetes mellitus type 2 with multiple comorbidities Time Notified: 16:45 Call Completed: Yes 10/26/17 18:02 Consult to Pastoral Services [CONS] Routine Comment: 10/28/17 13:05 Consult to Invasive Line Access Team [CONS] Routine Reason for Consult: Picc Line Insertion for Outpt atbs. Line Type: PICC 10/28/17 13:28 Consult to Payroll Machine Operator [CONS] Routine Reason for SW Consult: d/c planning 10/28/17 13:56 Consult to Infectious Diseases [CONS] Routine Consulting Provider: Infectious Disease [place] Reason for Consult: Called by Dr. Beebe. Foot infection Time Notified: 13:56 Call Completed: Yes Discharging clinician: Gil Beebe Anticipated date of discharge: 11/01/17 - Patient Status Disposition: Home Health Service Condition: Fair Functional capacity at discharge: wheelchair bound Overall status at discharge: patient is progressing back to baseline - Ambulatory Orders Ambulatory Orders: Misc. Order2 Time Frame: 1 Day, Facility: [facility], Location: Wound Care - Discharge Instructions Follow Up With: Agustina Casey CNP [Primary Care Provider] - Gil Beebe DPM [Partnered Physician] - 11/09/17 Additional Instructions: Patient will be discharged with IV Ampicillin 12 gm continuous infusions and IV Cefepime 2 gm every 12 hours. Home health care to perform daily dressing changes as ordered. Cleanse right foot daily with mild soap and water, pat dry, apply Betadine moistened gauze to the incision line of the right foot with dry sterile gauze, wrapped with Kerlix from the toes to the tibia of the right lower extremity with an zach wrap from toes to tibia overlying kerlix. Change dressing daily. Remain non weight bearing to RLE, use walker, keep right foot protected with post op shoe. Started back on Victoza and Tresiba A1c was 9.6 on 10/26/17. PCP will need to increase dosing or adding third agent for tighter control - Diet and Activity Activity: ambulate only with your walker Diet: diabetic diet - Hospital Course Hospital course: Ms. Sellers is a 47 year old female who was admitted 6 days ago for an acute infection of the right foot including bone and soft tissue secondary to a diabetic foot infection. Cultures were obtained prior to beginning intravenous antibiotics. Patient was placed empirically on intravenous antibiotics per previous cultures. Patient proceeded to the operating room for complete debridement of all necrotic tissue and bone. Fortunately were able to loosely close the wound and avoid long-term use of wound VAC. The patient was evaluated and presently being managed by infectious disease. PICC line was placed without complication. She will be discharged to home once at least 6 weeks of intravenous antibiotics per infectious disease service she will be followed up by podiatry and infectious disease. She is instructed that she is not to have any weight on the incision for fear of dehiscence and complications which can include lower limb amputation. Patient voices comprehension. She will have dressing changes on a daily basis and use of crutches wheelchair or walker to avoid all pressure on the incision. Condition on discharge improved progressing back to baseline. - Time Spent with Patient Total time spent providing and/or coordinating discharge services: Less than 30 minutes Specific discharge activities: Use of crutches wheelchair or walker to avoid all weight bearing on her right foot at any time. - VTE Documentation of Mechanical Device: Intermittent pneumatic compression device
== END 2017-11-01 13:23 | disposition home health service (06) | DRG 623 ==
LOC: 3NENU 16:42
PROVIDERS: ADMIT Podiatrist Foot Surgery; ATTEND Podiatrist Foot Surgery

== ENCOUNTER 2019-08-30 11:45 | Inpatient (IN) ==
[2019-08-30] MEDS ORDERED: Piperacillin/Tazobactam 3.375 GM in 0.9 % Sodium Chloride Mini Bag 100 ML IVPB ONE (13:35)
[2019-08-30 14:02] LABS: Hematocrit 42.5 % (35.3-44.9); Hemoglobin 14.6 g/dL (11.5-15.4); Mean Corpuscular HGB Conc 34.4 g/dL (31.6-35.5); Mean Corpuscular Hemoglobin 28.1 pg (28.0-33.3); Mean Corpuscular Volume 81.7 fL (83.0-100.0); Mean Platelet Volume 9.7 fL (9.4-12.4); Platelet Count 369 K/mcL (140-400); Red Cell Distribution Width 13.4 % (11.5-14.5); White Blood Count 13.1 K/mcL (4.3-11.1)
[2019-08-30 14:24] LABS: BUN/Creatinine Ratio 18 (6-26); Blood Urea Nitrogen 12 mg/dL (6-20); Calcium 8.8 mg/dL (8.6-10.3); Carbon Dioxide 22 mEq/L (23-29); Chloride 101 mEq/L (98-107); Glucose 271 mg/dL (70-105); Osmolality,Calculated 285 (280-300); Potassium 3.8 mEq/L (3.5-5.1); Sodium 133 mEq/L (136-145); eGFR For African Americans > 60 (> 60); eGFR For Non-African Americans > 60 (> 60)
[2019-08-30] MEDS ORDERED: Acetaminophen 325 MG TABLET PO PRN (15:02)
[2019-08-30] MEDS ORDERED: *HR* HYDROcodone/Acet 5/325 mg TABLET PO PRN (15:02)
[2019-08-30] MEDS ORDERED: Ondansetron 4 MG/2 ML VIAL IVP PRN (15:02)
[2019-08-30] MEDS ORDERED: Naloxone 0.4 MG/ML INJ IVP PRN (15:02)
[2019-08-30 15:07] LABS: C-Reactive Protein 111 mg/L (Less than 10)
[2019-08-30 15:25] LABS: INR 1.2; Prothrombin Time 13.7 Seconds (9.4-12.1)
[2019-08-30 15:27] LABS: Activated Partial Thrombo Time 32.8 Seconds (26.0-36.0)
[2019-08-30] MEDS ORDERED: D5% in Water 1,000 ML IVC PRN (17:10)
[2019-08-30] MEDS ORDERED: *HR* Dextrose 50 % in Water (Syg) 50 ML SYRINGE IVP PRN (17:10)
[2019-08-30] MEDS ORDERED: Dextrose Gel 15 GM/37.5 ML TUBE PO PRN ×2 (17:10)
[2019-08-30] MEDS ORDERED: Insulin LISPRO 300 UNITS/3 ML VIAL SQ SCH (21:00)
[2019-08-30 21:48] LABS: Estimated Average Glucose 246 mg/dl
[2019-08-30] MEDS: Piperacillin/Tazobactam 3.375 GM in 0.9 % Sodium Chloride Mini Bag 100 ML IVPB SCH (23:06)
[2019-08-31 05:23] LABS: Basophils # 0.1 K/mcL (0.0-0.2); Basophils % 0.4 %; Eosinophils # 0.1 K/mcL (0.0-0.6); Eosinophils % 1.1 %; Hematocrit 40.7 % (35.3-44.9); Hemoglobin 14.1 g/dL (11.5-15.4); Immature Granulocytes % 0.4 % (0-4); Lymphocytes # 2.1 K/mcL (0.6-4.6); Lymphocytes % 17.7 %; Mean Corpuscular HGB Conc 34.6 g/dL (31.6-35.5); Mean Corpuscular Hemoglobin 27.8 pg (28.0-33.3); Mean Corpuscular Volume 80.1 fL (83.0-100.0); Mean Platelet Volume 9.7 fL (9.4-12.4); Monocytes # 0.8 K/mcL (0.0-1.3); Monocytes % 7.2 %; Neutrophils # 8.5 K/mcL (1.6-8.9); Platelet Count 347 K/mcL (140-400); Red Blood Count 5.08 M/mcL (3.82-4.97); Red Cell Distribution Width 13.3 % (11.5-14.5); Segmented Neutrophils % 73.2 %; White Blood Count 11.6 K/mcL (4.3-11.1)
[2019-08-31 05:30] LABS: INR 1.2; Prothrombin Time 13.7 Seconds (9.4-12.1)
[2019-08-31 05:33] LABS: Activated Partial Thrombo Time 33.3 Seconds (26.0-36.0)
[2019-08-31 05:42] LABS: BUN/Creatinine Ratio 14 (6-26); Blood Urea Nitrogen 11 mg/dL (6-20); Calcium 8.6 mg/dL (8.6-10.3); Carbon Dioxide 28 mEq/L (23-29); Chloride 100 mEq/L (98-107); Glucose 260 mg/dL (70-105); Osmolality,Calculated 290 (280-300); Potassium 3.7 mEq/L (3.5-5.1); Sodium 136 mEq/L (136-145); eGFR For African Americans > 60 (> 60); eGFR For Non-African Americans > 60 (> 60)
[2019-08-31] MEDS: Insulin LISPRO 300 UNITS/3 ML VIAL SQ SCH ×4 (09:08→23:50)
[2019-08-31] MEDS: Piperacillin/Tazobactam 3.375 GM in 0.9 % Sodium Chloride Mini Bag 100 ML IVPB SCH (09:09)
[2019-08-31] MEDS ORDERED: Aminoglycoside Consult 1 EACH MC ONE (09:13)
[2019-08-31] MEDS: *HR* Heparin 5,000 UNIT/ML VIAL SQ SCH ×2 (15:16→21:32)
[2019-08-31] MEDS: cefTRIAXone 2,000 MG in Water for inj. (sterile) 20 ML IVP SCH (15:16)
[2019-08-31] MEDS ORDERED: Dextrose Gel 15 GM/37.5 ML TUBE PO PRN ×2 (16:26)
[2019-08-31] MEDS ORDERED: D5% in Water 1,000 ML IVC PRN (16:26)
[2019-08-31] MEDS ORDERED: *HR* Dextrose 50 % in Water (Syg) 50 ML SYRINGE IVP PRN (16:26)
[2019-08-31] MEDS ORDERED: Insulin LISPRO 300 UNITS/3 ML VIAL SQ SCH (17:00)
[2019-08-31] MEDS: Insulin DETEMIR 100 UNIT/ML X5UNITS SQ SCH (21:32)
[2019-08-31] MEDS: Gabapentin 100 MG CAPSULE PO SCH (21:32)
[2019-09-01 05:42] LABS: Basophils % 0.4 %; Eosinophils # 0.1 K/mcL (0.0-0.6); Eosinophils % 1.2 %; Hematocrit 41.4 % (35.3-44.9); Hemoglobin 14.1 g/dL (11.5-15.4); Immature Granulocytes % 0.5 % (0-4); Lymphocytes # 2.4 K/mcL (0.6-4.6); Lymphocytes % 22.6 %; Mean Corpuscular HGB Conc 34.1 g/dL (31.6-35.5); Mean Corpuscular Hemoglobin 27.5 pg (28.0-33.3); Mean Corpuscular Volume 80.9 fL (83.0-100.0); Mean Platelet Volume 9.9 fL (9.4-12.4); Monocytes # 0.9 K/mcL (0.0-1.3); Monocytes % 8.1 %; Neutrophils # 7.2 K/mcL (1.6-8.9); Platelet Count 370 K/mcL (140-400); Red Blood Count 5.12 M/mcL (3.82-4.97); Red Cell Distribution Width 13.5 % (11.5-14.5); Segmented Neutrophils % 67.2 %; White Blood Count 10.6 K/mcL (4.3-11.1)
[2019-09-01 06:02] LABS: BUN/Creatinine Ratio 13 (6-26); Blood Urea Nitrogen 12 mg/dL (6-20); Calcium 8.9 mg/dL (8.6-10.3); Carbon Dioxide 28 mEq/L (23-29); Chloride 102 mEq/L (98-107); Glucose 200 mg/dL (70-105); Osmolality,Calculated 291 (280-300); Potassium 3.8 mEq/L (3.5-5.1); Sodium 138 mEq/L (136-145); eGFR For African Americans > 60 (> 60); eGFR For Non-African Americans > 60 (> 60)
[2019-09-01] MEDS: *HR* Heparin 5,000 UNIT/ML VIAL SQ SCH ×3 (06:23→21:43)
[2019-09-01] MEDS: Gabapentin 100 MG CAPSULE PO SCH ×3 (08:50→21:43)
[2019-09-01] MEDS: Nicotine 14 MG PATCH.TD24 TD SCH (08:50)
[2019-09-01] MEDS: Insulin LISPRO 300 UNITS/3 ML VIAL SQ SCH ×3 (08:50→17:01)
[2019-09-01] MEDS: cefTRIAXone 2,000 MG in Water for inj. (sterile) 20 ML IVP SCH (15:07)
[2019-09-01] MEDS ORDERED: Dextrose Gel 15 GM/37.5 ML TUBE PO PRN ×2 (18:53)
[2019-09-01] MEDS ORDERED: *HR* Dextrose 50 % in Water (Syg) 50 ML SYRINGE IVP PRN (18:53)
[2019-09-01] MEDS ORDERED: D5% in Water 1,000 ML IVC PRN (18:53)
[2019-09-01] MEDS ORDERED: Insulin LISPRO 300 UNITS/3 ML VIAL SQ SCH (21:00)
[2019-09-01] MEDS: Insulin DETEMIR 100 UNIT/ML X5UNITS SQ SCH (21:43)
[2019-09-02 01:11] LABS: Basophils % 0.3 %; Eosinophils # 0.1 K/mcL (0.0-0.6); Eosinophils % 1.3 %; Hematocrit 40.8 % (35.3-44.9); Hemoglobin 13.9 g/dL (11.5-15.4); Immature Granulocytes % 0.3 % (0-4); Lymphocytes # 2.3 K/mcL (0.6-4.6); Lymphocytes % 25.5 %; Mean Corpuscular HGB Conc 34.1 g/dL (31.6-35.5); Mean Corpuscular Hemoglobin 27.6 pg (28.0-33.3); Mean Platelet Volume 9.9 fL (9.4-12.4); Monocytes # 0.7 K/mcL (0.0-1.3); Monocytes % 7.8 %; Neutrophils # 5.9 K/mcL (1.6-8.9); Platelet Count 365 K/mcL (140-400); Red Blood Count 5.04 M/mcL (3.82-4.97); Red Cell Distribution Width 13.4 % (11.5-14.5); Segmented Neutrophils % 64.8 %; White Blood Count 9.2 K/mcL (4.3-11.1)
[2019-09-02 01:38] LABS: BUN/Creatinine Ratio 15 (6-26); Blood Urea Nitrogen 14 mg/dL (6-20); Calcium 8.7 mg/dL (8.6-10.3); Carbon Dioxide 26 mEq/L (23-29); Chloride 101 mEq/L (98-107); Glucose 201 mg/dL (70-105); Magnesium 1.9 mg/dL (1.6-2.6); Osmolality,Calculated 288 (280-300); Potassium 3.9 mEq/L (3.5-5.1); Sodium 136 mEq/L (136-145); eGFR For African Americans > 60 (> 60); eGFR For Non-African Americans > 60 (> 60)
[2019-09-02] MEDS: *HR* Heparin 5,000 UNIT/ML VIAL SQ SCH ×3 (06:18→22:26)
[2019-09-02] MEDS: Nicotine 14 MG PATCH.TD24 TD SCH (07:59)
[2019-09-02] MEDS: Insulin LISPRO 300 UNITS/3 ML VIAL SQ SCH ×3 (08:00→17:17)
[2019-09-02] MEDS: Gabapentin 100 MG CAPSULE PO SCH ×3 (08:00→22:27)
[2019-09-02] MEDS: cefTRIAXone 2,000 MG in Water for inj. (sterile) 20 ML IVP SCH (13:58)
[2019-09-02] MEDS: Insulin DETEMIR 100 UNIT/ML X5UNITS SQ SCH (22:27)
[2019-09-03 00:56] LABS: Basophils % 0.3 %; Eosinophils # 0.1 K/mcL (0.0-0.6); Eosinophils % 1.2 %; Hematocrit 39.3 % (35.3-44.9); Hemoglobin 13.3 g/dL (11.5-15.4); Immature Granulocytes % 0.3 % (0-4); Lymphocytes # 2.2 K/mcL (0.6-4.6); Lymphocytes % 22.8 %; Mean Corpuscular HGB Conc 33.8 g/dL (31.6-35.5); Mean Corpuscular Hemoglobin 27.5 pg (28.0-33.3); Mean Corpuscular Volume 81.4 fL (83.0-100.0); Monocytes # 0.7 K/mcL (0.0-1.3); Monocytes % 7.2 %; Neutrophils # 6.5 K/mcL (1.6-8.9); Platelet Count 325 K/mcL (140-400); Red Blood Count 4.83 M/mcL (3.82-4.97); Red Cell Distribution Width 13.2 % (11.5-14.5); Segmented Neutrophils % 68.2 %; White Blood Count 9.5 K/mcL (4.3-11.1)
[2019-09-03 01:15] LABS: BUN/Creatinine Ratio 14 (6-26); Blood Urea Nitrogen 14 mg/dL (6-20); Calcium 8.5 mg/dL (8.6-10.3); Carbon Dioxide 27 mEq/L (23-29); Chloride 103 mEq/L (98-107); Glucose 180 mg/dL (70-105); Magnesium 1.9 mg/dL (1.6-2.6); Osmolality,Calculated 291 (280-300); Sodium 138 mEq/L (136-145); eGFR For African Americans > 60 (> 60); eGFR For Non-African Americans 59 (> 60)
[2019-09-03] MEDS: *HR* Heparin 5,000 UNIT/ML VIAL SQ SCH ×3 (05:32→20:36)
[2019-09-03] MEDS: Gabapentin 100 MG CAPSULE PO SCH ×3 (08:33→20:36)
[2019-09-03] MEDS: Nicotine 14 MG PATCH.TD24 TD SCH (08:33)
[2019-09-03] MEDS: Insulin LISPRO 300 UNITS/3 ML VIAL SQ SCH ×3 (08:34→17:29)
[2019-09-03] MEDS: cefTRIAXone 2,000 MG in Water for inj. (sterile) 20 ML IVP SCH (15:25)
[2019-09-03] MEDS: Insulin DETEMIR 100 UNIT/ML X5UNITS SQ SCH (20:37)
[2019-09-04 04:52] LABS: Basophils % 0.3 %; Eosinophils # 0.2 K/mcL (0.0-0.6); Eosinophils % 1.5 %; Hematocrit 40.1 % (35.3-44.9); Hemoglobin 13.2 g/dL (11.5-15.4); Immature Granulocytes % 0.2 % (0-4); Lymphocytes # 2.6 K/mcL (0.6-4.6); Lymphocytes % 25.8 %; Mean Corpuscular HGB Conc 32.9 g/dL (31.6-35.5); Mean Corpuscular Hemoglobin 27.5 pg (28.0-33.3); Mean Corpuscular Volume 83.5 fL (83.0-100.0); Mean Platelet Volume 10.1 fL (9.4-12.4); Monocytes # 0.8 K/mcL (0.0-1.3); Monocytes % 7.5 %; Neutrophils # 6.5 K/mcL (1.6-8.9); Platelet Count 308 K/mcL (140-400); Red Cell Distribution Width 13.2 % (11.5-14.5); Segmented Neutrophils % 64.7 %
[2019-09-04 05:06] LABS: BUN/Creatinine Ratio 17 (6-26); Blood Urea Nitrogen 15 mg/dL (6-20); Calcium 8.7 mg/dL (8.6-10.3); Carbon Dioxide 26 mEq/L (23-29); Chloride 103 mEq/L (98-107); Glucose 204 mg/dL (70-105); Magnesium 1.9 mg/dL (1.6-2.6); Osmolality,Calculated 291 (280-300); Potassium 3.7 mEq/L (3.5-5.1); Sodium 137 mEq/L (136-145); eGFR For African Americans > 60 (> 60); eGFR For Non-African Americans > 60 (> 60)
[2019-09-04] MEDS ORDERED: Vancomycin 1,000 MG, Sodium Chloride IRRigation 1,000 ML IR ONE (06:00)
[2019-09-04] MEDS: *HR* Heparin 5,000 UNIT/ML VIAL SQ SCH ×2 (06:40→20:57)
[2019-09-04] MEDS: Gabapentin 100 MG CAPSULE PO SCH ×2 (07:30→20:56)
[2019-09-04] MEDS: Insulin LISPRO 300 UNITS/3 ML VIAL SQ SCH (07:33)
[2019-09-04] MEDS ORDERED: Dexamethasone 4 MG/ML VIAL ONE (13:06)
[2019-09-04] MEDS ORDERED: Ondansetron 4 MG/2 ML VIAL ONE (13:06)
[2019-09-04] MEDS ORDERED: Lidocaine -MPF 2% 2 ML VIAL ONE (13:06)
[2019-09-04] MEDS ORDERED: *HR* Propofol 200 MG/20 ML VIAL IVP ONE (13:07)
[2019-09-04] MEDS ORDERED: *HR* FentaNYL (PF) 100 MCG/2 ML VIAL ONE (13:07)
[2019-09-04] MEDS ORDERED: *HR* Midazolam HCl 2 MG/2 ML VIAL ONE (13:07)
[2019-09-04] MEDS ORDERED: Ropivacaine/PF 0.5% 30 ML VIAL ONE (13:26)
[2019-09-04] MEDS ORDERED: ROPIVACAINE/PF/NS 0.25% 1 EACH SYRINGE INTRAART ONE (13:27)
[2019-09-04] MEDS ORDERED: Lidocaine 1% 20 ML MDV ONE (13:34)
[2019-09-04] MEDS ORDERED: Bupivacaine-MPF 0.25% 10 ML VIAL ONE (13:34)
[2019-09-04] MEDS ORDERED: *HR* HYDROmorphone (PF) 1 MG/ML SYRINGE IVP PRN (13:53)
[2019-09-04] MEDS ORDERED: *HR* Promethazine 25 MG/ML VIAL IVP PRN (13:53)
[2019-09-04] MEDS ORDERED: Ondansetron 4 MG/2 ML VIAL IVP ONE (13:53)
[2019-09-04] MEDS ORDERED: *HR* OxyCODONE Immed Rel 5 MG TABLET PO PRN (13:53)
[2019-09-04] MEDS ORDERED: Bupivacaine/EPI 1:200k 0.25%PF 30 ML VIAL ONE (14:01)
[2019-09-04] MEDS ORDERED: Ketorolac 30 MG/ML VIAL ONE (16:40)
[2019-09-04] MEDS ORDERED: D5% in Water 1,000 ML IVC PRN (18:25)
[2019-09-04] MEDS ORDERED: *HR* HYDROcodone/Acet 5/325 mg TABLET PO PRN (18:25)
[2019-09-04] MEDS ORDERED: Ondansetron 4 MG/2 ML VIAL IVP PRN (18:25)
[2019-09-04] MEDS ORDERED: *HR* Dextrose 50 % in Water (Syg) 50 ML SYRINGE IVP PRN (18:25)
[2019-09-04] MEDS ORDERED: Naloxone 0.4 MG/ML INJ IVP PRN (18:25)
[2019-09-04] MEDS ORDERED: Dextrose Gel 15 GM/37.5 ML TUBE PO PRN ×4 (18:25)
[2019-09-04] MEDS ORDERED: Acetaminophen 325 MG TABLET PO PRN (18:25)
[2019-09-04] MEDS: Insulin DETEMIR 100 UNIT/ML X5UNITS SQ SCH (21:22)
[2019-09-05 05:23] LABS: Basophils % 0.1 %; Hematocrit 40.5 % (35.3-44.9); Hemoglobin 13.8 g/dL (11.5-15.4); Immature Granulocytes % 0.6 % (0-4); Lymphocytes # 0.8 K/mcL (0.6-4.6); Lymphocytes % 5.9 %; Mean Corpuscular HGB Conc 34.1 g/dL (31.6-35.5); Mean Corpuscular Hemoglobin 27.5 pg (28.0-33.3); Mean Corpuscular Volume 80.7 fL (83.0-100.0); Mean Platelet Volume 10.2 fL (9.4-12.4); Monocytes # 0.6 K/mcL (0.0-1.3); Monocytes % 4.4 %; Neutrophils # 12.7 K/mcL (1.6-8.9); Platelet Count 337 K/mcL (140-400); Red Blood Count 5.02 M/mcL (3.82-4.97); Red Cell Distribution Width 13.2 % (11.5-14.5); White Blood Count 14.3 K/mcL (4.3-11.1)
[2019-09-05] MEDS: *HR* Heparin 5,000 UNIT/ML VIAL SQ SCH ×3 (05:42→22:28)
[2019-09-05] MEDS: Insulin LISPRO 300 UNITS/3 ML VIAL SQ SCH ×3 (07:43→18:46)
[2019-09-05] MEDS: Gabapentin 100 MG CAPSULE PO SCH ×3 (07:43→22:27)
[2019-09-05] MEDS: Nicotine 14 MG PATCH.TD24 TD SCH (07:43)
[2019-09-05] MEDS: cefTRIAXone 2,000 MG in Water for inj. (sterile) 20 ML IVP SCH (15:28)
[2019-09-05] MEDS: Insulin DETEMIR 100 UNIT/ML X5UNITS SQ SCH (22:41)
[2019-09-06] MEDS: *HR* Heparin 5,000 UNIT/ML VIAL SQ SCH ×3 (05:48→21:10)
[2019-09-06] MEDS: Insulin LISPRO 300 UNITS/3 ML VIAL SQ SCH ×3 (09:15→17:21)
[2019-09-06] MEDS: Gabapentin 100 MG CAPSULE PO SCH ×3 (09:15→21:15)
[2019-09-06] MEDS: Nicotine 14 MG PATCH.TD24 TD SCH (09:15)
[2019-09-06] MEDS: cefTRIAXone 2,000 MG in Water for inj. (sterile) 20 ML IVP SCH (13:01)
[2019-09-06] MEDS: Insulin DETEMIR 100 UNIT/ML X5UNITS SQ SCH (21:19)
[2019-09-07] MEDS: *HR* Heparin 5,000 UNIT/ML VIAL SQ SCH ×3 (05:20→20:47)
[2019-09-07] MEDS: Nicotine 14 MG PATCH.TD24 TD SCH (11:26)
[2019-09-07] MEDS: Gabapentin 100 MG CAPSULE PO SCH ×3 (11:26→20:46)
[2019-09-07] MEDS: Insulin LISPRO 300 UNITS/3 ML VIAL SQ SCH ×3 (11:27→18:04)
[2019-09-07] MEDS: Piperacillin/Tazobactam 3.375 GM in 0.9 % Sodium Chloride Mini Bag 100 ML IVPB SCH ×2 (18:01→23:48)
[2019-09-07] MEDS: Insulin DETEMIR 100 UNIT/ML X5UNITS SQ SCH (20:47)
[2019-09-08] MEDS: *HR* Heparin 5,000 UNIT/ML VIAL SQ SCH ×3 (05:17→20:19)
[2019-09-08] MEDS: Gabapentin 100 MG CAPSULE PO SCH ×3 (08:09→20:19)
[2019-09-08] MEDS: Piperacillin/Tazobactam 3.375 GM in 0.9 % Sodium Chloride Mini Bag 100 ML IVPB SCH ×3 (08:09→23:24)
[2019-09-08] MEDS: Nicotine 14 MG PATCH.TD24 TD SCH (08:09)
[2019-09-08] MEDS: Insulin LISPRO 300 UNITS/3 ML VIAL SQ SCH ×3 (08:12→16:42)
[2019-09-08 11:54] LABS: Hematocrit 37.7 % (35.3-44.9); Hemoglobin 12.7 g/dL (11.5-15.4); Mean Corpuscular HGB Conc 33.7 g/dL (31.6-35.5); Mean Corpuscular Hemoglobin 27.6 pg (28.0-33.3); Red Blood Count 4.6 M/mcL (3.82-4.97); Red Cell Distribution Width 13.5 % (11.5-14.5); White Blood Count 12.8 K/mcL (4.3-11.1)
[2019-09-08 11:55] LABS: Immature Platelets 4.4 % (1.1-6.1); Mean Platelet Volume 10.1 fL (9.4-12.4)
[2019-09-08 12:37] LABS: BUN/Creatinine Ratio 15 (6-26); Blood Urea Nitrogen 14 mg/dL (6-20); Calcium 8.5 mg/dL (8.6-10.3); Carbon Dioxide 25 mEq/L (23-29); Chloride 102 mEq/L (98-107); Glucose 165 mg/dL (70-105); Osmolality,Calculated 286 (280-300); Potassium 3.8 mEq/L (3.5-5.1); Sodium 136 mEq/L (136-145); eGFR For African Americans > 60 (> 60); eGFR For Non-African Americans > 60 (> 60)
[2019-09-08] MEDS: Insulin DETEMIR 100 UNIT/ML X5UNITS SQ SCH (20:19)
[2019-09-09 01:39] LABS: Hematocrit 35.8 % (35.3-44.9); Mean Corpuscular HGB Conc 33.5 g/dL (31.6-35.5); Mean Corpuscular Hemoglobin 27.6 pg (28.0-33.3); Mean Corpuscular Volume 82.3 fL (83.0-100.0); Mean Platelet Volume 10.4 fL (9.4-12.4); Platelet Count 315 K/mcL (140-400); Red Blood Count 4.35 M/mcL (3.82-4.97); Red Cell Distribution Width 13.4 % (11.5-14.5); White Blood Count 11.6 K/mcL (4.3-11.1)
[2019-09-09 01:56] LABS: BUN/Creatinine Ratio 16 (6-26); Blood Urea Nitrogen 13 mg/dL (6-20); Calcium 8.4 mg/dL (8.6-10.3); Carbon Dioxide 24 mEq/L (23-29); Chloride 104 mEq/L (98-107); Glucose 197 mg/dL (70-105); Osmolality,Calculated 286 (280-300); Potassium 3.8 mEq/L (3.5-5.1); Sodium 135 mEq/L (136-145); eGFR For African Americans > 60 (> 60); eGFR For Non-African Americans > 60 (> 60)
[2019-09-09] MEDS: *HR* Heparin 5,000 UNIT/ML VIAL SQ SCH ×3 (05:14→20:24)
[2019-09-09] MEDS: Insulin LISPRO 300 UNITS/3 ML VIAL SQ SCH ×3 (08:42→17:52)
[2019-09-09] MEDS: Nicotine 14 MG PATCH.TD24 TD SCH (08:42)
[2019-09-09] MEDS: Gabapentin 100 MG CAPSULE PO SCH ×3 (08:42→20:24)
[2019-09-09] MEDS: Piperacillin/Tazobactam 3.375 GM in 0.9 % Sodium Chloride Mini Bag 100 ML IVPB SCH ×3 (08:43→23:16)
[2019-09-09] MEDS: Insulin DETEMIR 100 UNIT/ML X5UNITS SQ SCH (20:25)
[2019-09-10] MEDS: *HR* Heparin 5,000 UNIT/ML VIAL SQ SCH (05:37)
[2019-09-10] MEDS: Gabapentin 100 MG CAPSULE PO SCH (08:36)
[2019-09-10] MEDS: Piperacillin/Tazobactam 3.375 GM in 0.9 % Sodium Chloride Mini Bag 100 ML IVPB SCH (08:36)
[2019-09-10] MEDS: Nicotine 14 MG PATCH.TD24 TD SCH (08:37)
[2019-09-10] MEDS: Insulin LISPRO 300 UNITS/3 ML VIAL SQ SCH (08:37)
[2019-09-10 10:47] VITALS: BP 123/79
== END 2019-09-10 11:53 | disposition home health service (06) | DRG 857 ==
LOC: EMEROOARM 11:45 → 3NENU 11:45 → SUATTDRO 15:36 → 3NENU 16:45 → SUATTDRO 08-31 13:30
PROVIDERS: ADMIT Student in an Organized Health Care Education/Training Program; ATTEND Internal Medicine